=== PATIENT | female | born 1945 | race Caucasian/White ===

== ENCOUNTER 2017-09-15 14:38 | Inpatient (IN) | payer MEDICARE, OTHER ==
[2017-09-15] MEDS ORDERED: Labetalol HCl 100 MG/20 ML VIAL ONE (14:53)
[2017-09-15 15:06] LABS: #Eosinphils 0.1 thou/uL (0.0-0.7); #Lymphocytes 2.1 thou/uL (1.20-3.40); #Monocytes 0.6 thou/uL (0.11-0.59); #Neutrophils 3.8 thou/uL (1.40-6.50); %Basophils 0.7 % (0.0-1.0); %Eosinophils 1.9 % (0.0-10.0); %Lymphocytes 31.9 % (21.0-51.0); %Monocytes 8.6 % (0.0-10.0); %Neutrophils 56.9 % (42.0-75.0); Hemoglobin 13.5 g/dL (12.0-16.0); Mean Corpuscular HGB CONC 34.2 g/dL (32.0-36.0); Mean Corpuscular Hemoglobin 31.2 pg (27.0-31.0); Mean Corpuscular Volume 91.4 fl (81.0-99.0); Mean Platelet Volume 6.9 fL (7.4-10.4); Platelet Count 268 thou/uL (130-400); RBC Distribution Width 13.4 % (11.5-14.5); Red Blood Cell (RBC) Count 4.33 mill/uL (4.20-5.40); White Blood Cell (WBC) Count 6.7 thou/uL (4.8-10.8)
[2017-09-15 15:12] LABS: INR-International Normal Ratio 1.3; PTT 31.8 SEC (22.9-36.1); Prothrombin Time 16.3 SEC (12.0-14.7)
[2017-09-15] MEDS ORDERED: Esmolol 2,500 MG/250 ML 250 ML IVPB SCH (15:15)
--- NOTE | 2017-09-15 15:22 | RAD ---
CHEST 1 VIEW: Date: 09/15/17 HISTORY: Chest pain. COMPARISON: None. FINDINGS: There is a perihilar and right lower lobe air space opacity. Faint interstitial opacities are present in the left lung base. No pneumothorax. Mild degenerative changes of both glenohumeral joints. Moderate degenerative disease of the thoracic spine. IMPRESSION: Faint opacities in the lower lobes with somewhat an interstitial predominance may be reflective of ea rly edema versus atypical infection. Follow-up recommended. Clinical correlation advised. POS: ALBERT
[2017-09-15 15:25] LABS: ALT (SGPT) 16 U/L (8-55); AST (SGOT) 23 U/L (5-34); Albumin 3.9 g/dL (3.4-4.8); Alkaline Phosphatase 118 U/L (40-150); Anion Gap 13 mmol/L (10-20); BUN (Urea Nitrogen) 18 mg/dL (9.8-20.1); Bilirubin, Total 0.5 mg/dL (0.2-1.2); Calc. Creatinine Clearance 0 mL/min (70-130); Calcium 9.8 mg/dL (7.8-10.44); Carbon Dioxide 22 mmol/L (23-31); Chloride 108 mmol/L (98-107); Estimated GFR-MDRD 41; Globulin 3.7 g/dL (2.4-3.5); Glucose 105 mg/dL (80-115); Lipase 48 U/L (8-78); Potassium 4.1 mmol/L (3.5-5.1); Protein, Total 7.6 g/dL (6.0-8.3); Sodium 139 mmol/L (136-145)
[2017-09-15 15:29] LABS: CKMB 0.9 ng/mL (0-6.6); Troponin I Less than 0.010 ng/mL (< 0.028)
[2017-09-15 18:38] LABS: Troponin I Less than 0.010 ng/mL (< 0.028)
[2017-09-15] MEDS: Sodium Chloride 0.9% 1,000 ML IV SCH (19:48)
[2017-09-15 19:49] VITALS: BMI 28.6
[2017-09-15 21:31] LABS: Troponin I Less than 0.010 ng/mL (< 0.028)
[2017-09-15] MEDS: Amiodarone 200 MG TAB PO SCH (21:51)
[2017-09-15] MEDS: Pramipexole Di-HCl 0.25 MG TAB PO SCH (21:51)
[2017-09-16 05:10] LABS: #Basophils 0.1 thou/uL (0.0-0.2); #Eosinphils 0.1 thou/uL (0.0-0.7); #Lymphocytes 2.1 thou/uL (1.20-3.40); #Monocytes 0.4 thou/uL (0.11-0.59); %Eosinophils 2.6 % (0.0-10.0); %Lymphocytes 36.1 % (21.0-51.0); %Monocytes 7.4 % (0.0-10.0); Hemoglobin 11.5 g/dL (12.0-16.0); Mean Corpuscular HGB CONC 34.9 g/dL (32.0-36.0); Mean Corpuscular Hemoglobin 33.5 pg (27.0-31.0); Mean Corpuscular Volume 95.8 fl (81.0-99.0); Mean Platelet Volume 7.1 fL (7.4-10.4); Platelet Count 207 thou/uL (130-400); RBC Distribution Width 13.5 % (11.5-14.5); Red Blood Cell (RBC) Count 3.42 mill/uL (4.20-5.40); White Blood Cell (WBC) Count 5.7 thou/uL (4.8-10.8)
[2017-09-16 05:31] LABS: Anion Gap 8 mmol/L (10-20); BUN (Urea Nitrogen) 14 mg/dL (9.8-20.1); Calc. Creatinine Clearance 54 mL/min (70-130); Calcium 8.7 mg/dL (7.8-10.44); Carbon Dioxide 21 mmol/L (23-31); Chloride 114 mmol/L (98-107); Estimated GFR-MDRD 56; Glucose 87 mg/dL (80-115); Sodium 139 mmol/L (136-145)
[2017-09-16] MEDS ORDERED: Famotidine/PF 20 mg/2ml Vial SLOW IVP SCH (09:00)
[2017-09-16] MEDS ORDERED: Famotidine 40 MG/4 ML VIAL SLOW IVP SCH (09:00)
[2017-09-16] MEDS ORDERED: Enoxaparin Sodium 30 MG/0.3 ML SYRINGE SC SCH (09:00)
--- NOTE | 2017-09-16 09:56 | HP ---
DATE OF ADMISSION: 09/16/2017 PRIMARY CARE PHYSICIAN: Dr. Gamboa. EAP COUNSELOR: Dr. Woods. CHIEF COMPLAINT: Palpitations. HISTORY OF PRESENT ILLNESS: This is a 71-year-old female with a known history of prior atrial fibril lation, status post ablation who presents today with a chief complaint of palpitations. The patient reports an acute onset without precipitant. Denies any nausea, vomiting, chest pain, chest pressure, shortness of breath during this episode. Denies any recent illnesses or changes to her home medication. In the emergency department, she is found to be in atrial fibrillation with RVR, namely a heart rate in the 170s to 180s per report to me. It appears that in the emergency department, patient was initi ally started on labetalol, which did not help with the patient's heart rate whatsoever, but did decre ase her systolic blood pressure into the 70s and 80s systolic. At the time of my evaluation, the pat ient has been initiated on an esmolol drip with subsequent improvement of her heart rate down into th e 60s and maintaining blood pressures systolic in the 100s. At the time of my evaluation, the patient denies any continued sensation of palpitations. REVIEW OF SYSTEMS: As per HPI. Constitutional: Denies any recent illnesses. Denies any recent fe vers, chills, or significant weight changes over the last 2 months. HEENT: No any headaches, dizzin ess, lightheadedness, or vision changes. Cardiovascular: As per above. No chest pain, no chest pr essure, no left-sided arm numbness or tingling associated with this event or immediately before or af ter. Respiratory: No new congestion, cough, shortness of breath, wheezing. Gastrointestinal: Peterson es any nausea, vomiting, abdominal pain. Denies any recent issues with diarrhea or constipation. Ge nitourinary: Denies any recent dysuria, changes in urinary frequency, color or quantity. Musculoske letal: Denies any recent myalgias or arthralgias. Skin: No new recent rashes or new "lumps or bump s." The remainder of the review of systems otherwise negative. PAST MEDICAL HISTORY: Please see above. 1. Known history of atrial fibrillation with status post ablation, currently on Eliquis for anticoag ulation. 2. Irritable bowel syndrome. 3. Restless leg syndrome. 4. Aortic valve insufficiency. 5. Degenerative joint disease. 6. Hypertension. 7. Status post cardiac catheterization in association with her atrial fibrillation, no other surgeri es that the patient recalls. HOME MEDICATIONS: Please see the EMR for full details. Briefly, the patient does take at home, apix aban or Eliquis 5 mg p.o. b.i.d., simvastatin 20 mg p.o. q.p.m., ramipril 5 mg p.o. daily, metoprolol succinate 25 mg p.o. daily and pramipexole 0.5 mg p.o. b.i.d. as noted above. The patient denies an y recent hwcc-[id number]-kguuttm supplements or vitamins. Denies any changes to his medication regimen in t he last 30 days. FAMILY HISTORY: The patient endorses a family history of "heart disease," but denies knowing if any of her family members actually have any arrhythmia. Denies any endocrine disorders including thyroid issues that she is aware of. FAMILY HISTORY: Otherwise significant for lung cancer in her father and emphysema in her mother. SOCIAL HISTORY: Patient denies any alcohol, tobacco or illicit drug use. CODE STATUS: She endorses being FULL CODE. This was reviewed with the patient and a family member a t bedside. PHYSICAL EXAMINATION: VITAL SIGNS: At the time of my evaluation, the patient's blood pressure is systolic in the 100s, rosa stolic in the 40s to 50s, heart rate in the 60s, respiration rate 18, satting 97% on room air, and te mperature 98.0. GENERAL: The patient is awake, alert, appropriate, in no acute distress, lying in the hospital bed a nd appears to be a reasonable historian providing the history as above. HEENT: Moist mucous membranes. Equal ocular motions are intact. Pupils are equal and reactive. Cl ear posterior oropharynx. NECK: No cervical or submandibular lymphadenopathy. CARDIOVASCULAR: S1, S2. Pulses 2+ bilateral upper extremities. At the time of my evaluation, the p atient appears to be in normal sinus rhythm as per telemetry and her pulse does not demonstrate any i rregularities. RESPIRATORY: Reasonable air movement. No wheezes, rales or rhonchi. Grossly clear to auscultation bilaterally. ABDOMEN: Positive bowel sounds, soft, nontender to palpation. NEUROLOGIC: Moving all 4 extremities independently and able to self re-position in the bed without d ifficulty or assistance. LABORATORY DATA AND IMAGING: WBC 6.7, hemoglobin 13.5, hematocrit 39.5, platelets 268. PT 16.3, INR 1.3. Sodium 139, potassium 4.1, chloride 108, bicarbonate 22, BUN 18, creatinine 1.28, glucose 105, calcium 9.8, total bilirubin 0.5, AST 26, ALT 16, alkaline phosphatase 118. Troponin less than 0.01 . BNP natriuretic peptide 191.8, total protein 7.6, albumin 3.9, lipase 48. TSH 1.571. ASSESSMENT AND PLAN: This is a 71-year-old female with a known history of atrial fibrillation presleda herrera with a chief complaint of palpitations. 1. Palpitations with initial assessment by the emergency department consistent with atrial fibrillat ion with rapid ventricular response. At the time of my evaluation, the patient appears to be back in normal sinus rhythm on esmolol drip. The patient's home sack sorter is Dr. Woods. We will cons ult him for further evaluation of her recurrent atrial fibrillation despite medical management and ab lation. Given the patient is on esmolol, I will continue to hold her home beta elia, metoprolol s uccinate. Due to the patient's needing sufficient blood pressure leeway to allow for esmolol utiliza tion, I will also hold her home lisinopril. Continue the patient's home amiodarone. In case the pat ient needs subsequent ablation or any other procedure in the morning, I will hold the patient's Eliqu is at this point in time and place the patient on enoxaparin for DVT prophylaxis. I will also keep t he patient n.p.o. with maintenance normal saline IV fluid. 2. Restless leg syndrome, stable. 3. Irritable bowel syndrome, stable. 4. Activity as tolerated. 5. Diet, n.p.o. as above. 6. Deep venous thrombosis prophylaxis as above. 7. The patient with some mild acute kidney injury with slightly elevated creatinine. Hydration as a opal. We will closely monitor intake and output and recheck a basic metabolic panel in the morning. The patient is admitted to the [facility] due to her need for an esmolol drip. She is currently hemodynami augie stable. She will be FULL CODE as discussed above. Thank you for asking me to care for the patient. Questions or concerns, please contact me at [facility].
[2017-09-16] MEDS: Amiodarone 200 MG TAB PO SCH (10:07)
[2017-09-16] MEDS: Pramipexole Di-HCl 0.25 MG TAB PO SCH (10:15)
[2017-09-16 11:28] VITALS: BP 102/42; TEMP 98.2
[2017-09-16] MEDS: Sodium Chloride 0.9% 1,000 ML IV SCH (13:23)
--- NOTE | 2017-09-16 17:07 | CON ---
DATE OF CONSULTATION: 09/16/2017 HISTORY OF PRESENT ILLNESS: The patient is a 71-year-old woman with a history of atrial fibrillation presents with recurrent palpitations. The patient has a previous history of atrial fibrillation. She was seen initially in 2014. She underwent a cardiac catheterization, which revealed her to have normal left ventricular systolic function with normal coronary arteries. The patient underwent radiofrequency ablation for paroxysmal atrial fibrillation approximately 6 months ago. She was readmitted in February with atrial fibrillation and was started on amiodarone. The patient recently was taken off amiodarone and Eliquis. She was noted to be back in atrial fibrillation and was started on metoprolol. The patient presented with recurrent palpitations. The patient also reported having some chest discomfort. She underwent a recent PET scan which revealed normal left ventricular ejection fraction of 60% with no evidence of ischemia. The patient denies having any present chest discomfort. PAST MEDICAL HISTORY: 1. Atrial fibrillation. 2. Hypertension. 3. Dyslipidemia. 4. Irritable bowel syndrome. 5. Arthritis. PAST SURGICAL HISTORY: Toe surgery. SOCIAL HISTORY: Nonsmoker. MEDICATIONS ON ADMISSION: Apixaban 5 b.i.d., Zocor 20 at bedtime, ramipril 5 daily, and Toprol 25 XL daily. REVIEW OF SYSTEMS: Ten-point system otherwise unremarkable. PHYSICAL EXAMINATION: GENERAL: This is a well-developed woman in no acute distress. VITAL SIGNS: Blood pressure 102/42. NECK: Showed no jugular venous distention. LUNGS: Clear to auscultation. HEART: Regular rate and rhythm with a normal S1, S2. No murmur. ABDOMEN: Nondistended. EXTREMITIES: Showed no edema. SKIN: Warm and dry. NEUROLOGIC: Nonfocal. VASCULAR: Radial pulses are 2+. LABORATORY DATA: Sodium 139, potassium 4.0, chloride 114, bicarbonate 21, BUN 14, creatinine 0.98, glucose is 87, troponin less than 0.01. TSH is 1.5. Her EKG revealed normal sinus rhythm with a normal ECG. IMPRESSION: 1. Recurrent paroxysmal atrial fibrillation. 2. Hypertension. 3. Dyslipidemia. This patient presents with recurrent atrial fibrillation. We will obtain EP consultation. I would restart the patient on her amiodarone until she follows up with an c4 planner. From a cardiac standpoint, she can be discharged on amiodarone and apixaban. We will follow this patient with you through her hospitalization. BHARGAV
[2017-09-16] MEDS ORDERED: Apixaban 5 MG TAB PO SCH (21:00)
== END 2017-09-16 15:28 | disposition home or self-care (01) | DRG 310 ==
LOC: ERS 14:38 → IMCU/EMU 19:08
PROVIDERS: ADMIT Internal Medicine; ATTEND Internal Medicine
DX: I48.0 Paroxysmal atrial fibrillation (principal); E78.5 Hyperlipidemia, unspecified; M19.90 Unspecified osteoarthritis, unspecified site; G25.81 Restless legs syndrome; I10 Essential (primary) hypertension
CPT/HCPCS: 36415; 71045; 80048; 80053; 82553; 83690; 83880; 84443; 84484; 85025; 85610; 85730; 93005; 96365; 96366; 96375

== ENCOUNTER 2017-11-07 08:37 | Outpatient (CLI) | payer MEDICARE, OTHER ==
--- NOTE | 2017-11-07 12:13 | MMO ---
BILATERAL SCREENING MAMMOGRAMS: Date: 11-07-17 This study is interpreted with the assistance of computer aided detection. Comparison: 06-03-16, 09-27-13 FINDINGS: Scattered fibroglandular densities are seen in each breast. Stable benign appearing calcifications ar e again seen in each breast. No dominant mass or suspicious grouping of microcalcifications are seen. IMPRESSION: BIRADS category 2 - benign findings. Routine annual mammographic screening is recommended. POS: ALBERT
== END 2017-11-07 08:38 | disposition home or self-care (01) ==
LOC: SCSMAMMO 08:37
PROVIDERS: ATTEND Family Medicine
DX: Z12.31 Encounter for screening mammogram for malignant neoplasm of breast (principal)
CPT/HCPCS: 77067

== ENCOUNTER 2017-12-01 09:23 | Observation (INO) | payer MEDICARE, OTHER ==
[2017-12-01 10:05] LABS: #Basophils 0.1 thou/uL (0.0-0.2); #Eosinphils 0.1 thou/uL (0.0-0.7); #Lymphocytes 1.6 thou/uL (1.20-3.40); #Monocytes 0.4 thou/uL (0.11-0.59); #Neutrophils 5.1 thou/uL (1.40-6.50); %Basophils 0.9 % (0.0-1.0); %Eosinophils 1.8 % (0.0-10.0); %Lymphocytes 21.9 % (21.0-51.0); %Monocytes 6.1 % (0.0-10.0); %Neutrophils 69.3 % (42.0-75.0); Hemoglobin 12.9 g/dL (12.0-16.0); Mean Corpuscular Hemoglobin 30.1 pg (27.0-31.0); Mean Corpuscular Volume 91.3 fl (81.0-99.0); Mean Platelet Volume 7.1 fL (7.4-10.4); Platelet Count 304 thou/uL (130-400); RBC Distribution Width 14.1 % (11.5-14.5); Red Blood Cell (RBC) Count 4.29 mill/uL (4.20-5.40); White Blood Cell (WBC) Count 7.3 thou/uL (4.8-10.8)
[2017-12-01 10:07] LABS: INR-International Normal Ratio 1.3; Prothrombin Time 16.2 SEC (12.0-14.7)
[2017-12-01 10:21] LABS: ALT (SGPT) 14 U/L (8-55); AST (SGOT) 22 U/L (5-34); Albumin 3.6 g/dL (3.4-4.8); Alkaline Phosphatase 116 U/L (40-150); Anion Gap 13 mmol/L (10-20); BUN (Urea Nitrogen) 15 mg/dL (9.8-20.1); Bilirubin, Total 0.5 mg/dL (0.2-1.2); Calc. Creatinine Clearance 43 mL/min (70-130); Calcium 9.4 mg/dL (7.8-10.44); Carbon Dioxide 22 mmol/L (23-31); Chloride 106 mmol/L (98-107); Estimated GFR-MDRD 45; Globulin 4.7 g/dL (2.4-3.5); Glucose 93 mg/dL (80-115); Potassium 4.2 mmol/L (3.5-5.1); Protein, Total 8.3 g/dL (6.0-8.3); Sodium 137 mmol/L (136-145)
[2017-12-01] MEDS ORDERED: Heparin 10,000 UNITS/1 ML VIAL ONE (11:56)
[2017-12-01] MEDS ORDERED: Midazolam HCl 2 mg/2 ml Vial ONE (12:16)
[2017-12-01] MEDS ORDERED: Fentanyl 100 MCG/2 ML VIAL ONE (12:16)
[2017-12-01] MEDS ORDERED: Propofol 500 MG/50 ML VIAL ONE (12:22)
[2017-12-01] MEDS ORDERED: Phenylephrine HCL 10 MG/ML VIAL ONE (12:29)
[2017-12-01] MEDS ORDERED: Isoproterenol 0.2 MG/1 ML AMP ONE (13:02)
[2017-12-01] MEDS ORDERED: PHENYLEPHRINE-NS 100 MCG/ML 10 ML SYRINGE ONE ×2 (13:20→13:58)
[2017-12-01] MEDS ORDERED: Heparin 10,000 UNITS/ 10 ML VIAL ONE (13:20)
[2017-12-01] MEDS ORDERED: PROPOFOL 200 MG/20 ML VIAL ONE (13:20)
[2017-12-01] MEDS ORDERED: Ondansetron HCl/PF 4 MG/2 ML Vial ONE (13:20)
[2017-12-01] MEDS ORDERED: Protamine Sulfate 50 MG/5 ML VIAL ONE (13:47)
--- NOTE | 2017-12-01 13:58 | OP ---
DATE OF PROCEDURE: 12/01/2017 PROCEDURE: 1. Comprehensive EP testing with 3D mapping and ablation of atrial fibrillation. 2. Intracardiac echocardiography. 3. Transseptal catheterization. 4. LINQ injectable monitor placement. CLINICAL INDICATION: Atrial fibrillation, recurrent from previous ablation. STATISTICIAN THEORETICAL: Griffin Liu M.D. ASA CLASSIFICATION: 3. ANESTHESIA: General endotracheal anesthesia per Anesthesiology. ADDITIONAL CARDIAC MEDICATIONS: Isoproterenol 10 mcg per minute infusion. Total heparin given 12,00 0 units. Total protamine given 40 mg. ACUTE COMPLICATIONS: None apparent. TOTAL RADIOFREQUENCY TIME: 21 minutes 50 seconds. TOTAL FLUOROSCOPY TIME: Zero. ACUTE COMPLICATIONS: None. METHODS: After informed consent was obtained, the patient was taken to the EP lab in a fasting state . Both groins were prepped and draped using ultrasound guidance, the right and left femoral veins we re accessed and wires inserted into the central venous system. The wires used to place an 11 and 8-F rench sheath in the left groin, two 8 Chilean sheaths in right groin. All 8 [place]an sheaths was then r eplaced by long sheaths for catheter stability. A circular ablation catheter placed in right groin a dvanced into the right atrium. A 3D map was obtained of the right atrium and the coronary sinus. A 20-pole catheter placed in left groin and advanced up to the coronary sinus. Transseptal catheteriza tion was performed after heparinization. A 3D map was obtained of the left atrium and ablation was d elivered reisolating the right superior pulmonary vein, the posterior wall of the left atrium. The p atient had firing from the left atrial appendage and from the florian terminalis. The left atrial jenise endage was completely isolated with independent beating. Ablation was also delivered along the roof of the left atrium, the roof of the right atrium and the florian terminalis. After this, the patient terminated and was no longer inducible. After an observation period catheter withdrawn. Heparin rev ersed. Sheaths were pulled. Hemostasis was achieved with a collagen closure. RESULTS: 1. Baseline intervals, HV interval 38 milliseconds. 2. Atrial ____ when patient was in sinus rhythm; however, with isoproterenol had induction of atria l tachycardia and atypical flutter. This appeared to be firing and initiating from the left atrial a ppendage and was maintained from the right atrial appendage and the florian terminalis. Each of these were ablated. Ultimately, the patient had her left atrial appendage completely isolated. The right superior and posterior wall were also re-isolated from previous ablation. IMPRESSION: 1. Successful re-isolation right superior pulmonary veins, posterior wall of the left atrium. 2. Confirmed complete isolation of left atrial appendage. 3. Debulking of the roof and the florian terminalis of the right atrium. RECOMMENDATION: Oral anticoagulation.
--- NOTE | 2017-12-01 14:00 | OP ---
DATE OF PROCEDURE: 12/01/2017 PROCEDURE: Placement of an injectable monitor. CLINICAL INDICATION: History of atrial fibrillation for monitoring of recurrence. KITCHENHAND: Griffin Liu M.D. ASA CLASSIFICATION: 3. ANESTHESIA: Total IV anesthesia per Anesthesiology. ADDITIONAL CARDIAC MEDICATIONS: None. ESTIMATED BLOOD LOSS: None. ACUTE COMPLICATIONS: None. METHODS: An ILR was placed in the fifth intercostal space and left chest without difficulty. IMPRESSION: Successful ILR LINQ placement. RECOMMENDATION: Continue with monitoring for the atrial fibrillation.
[2017-12-01] MEDS ORDERED: ePHEDrine/0.9% NaCl/PF SYRINGE 50 mg/10 ml ONE (14:25)
--- NOTE | 2017-12-01 14:28 | EKG ---
Test Reason : PREOP Blood Pressure : / mmHG Vent. Rate : 059 BPM Atrial Rate : 059 BPM P-R Int : 168 ms QRS Dur : 102 ms QT Int : 454 ms P-R-T Axes : 039 047 027 degrees QTc Int : 449 ms Sinus bradycardia Otherwise normal ECG When compared with ECG of 15-SEP-2017 16:03, No significant change was found Confirmed by DONIS SHIELDS ([id number]) on 12/01/2017 2:27:36 PM Referred By: CASPER Confirmed By:DONIS SHIELDS
[2017-12-01 17:28] VITALS: BMI 29.2
[2017-12-01] MEDS ORDERED: Acetaminophen 325 MG TAB PO PRN (17:53)
[2017-12-01] MEDS ORDERED: Bisacodyl 10 MG SUPP PR PRN (17:53)
[2017-12-01] MEDS ORDERED: Ondansetron HCl/PF 4 MG/2 ML Vial IVP PRN (17:53)
[2017-12-01] MEDS ORDERED: Nitroglycerin 0.4 MG TAB (25 Tab Bottle) SL PRN (17:53)
[2017-12-01] MEDS ORDERED: Silver Sulfadiazine 1% Cream 50 GM JAR TOP PRN (17:53)
[2017-12-01] MEDS ORDERED: traMADol HCl 50 MG TAB PO PRN (17:53)
[2017-12-01] MEDS ORDERED: Temazepam 15 MG CAP PO PRN (17:53)
[2017-12-01] MEDS ORDERED: Bisacodyl 5 MG TAB PO PRN (17:53)
[2017-12-01] MEDS ORDERED: Mag-Al 1200 mg/1200 mg/30 ML UDCUP PO PRN (17:53)
[2017-12-01] MEDS ORDERED: diphenhydrAMINE 25 MG CAP PO PRN (17:53)
[2017-12-01] MEDS ORDERED: Furosemide 40 MG/4 ML VIAL SLOW IVP SCH (18:00)
[2017-12-01] MEDS ORDERED: Potassium Chloride 20 MEQ TAB PO SCH (18:00)
[2017-12-01] MEDS: Apixaban 5 MG TAB PO SCH (20:42)
[2017-12-01] MEDS: Pramipexole Di-HCl 0.25 MG TAB PO SCH (20:42)
--- NOTE | 2017-12-01 20:47 | ECHO ---
DATE OF SERVICE: 12/01/17 REASON FOR PROCEDURE: This patient is a 71-year-old woman with history of recurrent atrial arrhythmias. She underwent a re do pulmonary venous isolation posterior ablation procedure by Dr. Liu today. She developed modera te hypertension requiring pressors postop in the recovery phase from the Anesthesia in the recovery u nit. A 2D echo was performed to rule out any periprocedural complications or tamponade. Evaluate LV function and volume status. PROCEDURE RESULTS: The left atrium is moderately enlarged. Left atrial appendage is not visualized. Interatrial septum is with a small PFO likely due to the recent transseptal procedure Mild mitral regurgitation is seen. Left systolic function is preserved. LV ejection fraction about 50-55% noted. Mildly enlarged left v entricular size is seen. Right chambers nondilated Mild tricuspid regurgitation is seen only Aortic valve has three leaflets. Mild central regurgitation jet is seen. The pressure half time VID aortic regurgitation jet is 420 milliseconds. Pulmonic valve is not well visualized. The ascending aorta is nondilated and nondissected. The inferior vena cava is 11 cm per second, resp onse to respiration. The pericardial space without effusion. CONCLUSION: 1. No pericardial effusion post-ablation procedure. 2. Normal left ventricular systolic function. 3. Normal appearing inferior vena cava suggestive of adequate volume status. 4. Mild aortic and mitral regurgitation seen. No other valvular abnormalities of significance is no dea.
[2017-12-01] MEDS ORDERED: Valsartan 80 MG TAB PO SCH (21:00)
[2017-12-01] MEDS ORDERED: Atorvastatin Calcium 10 MG TAB PO SCH (21:00)
[2017-12-02] MEDS: Apixaban 5 MG TAB PO SCH (07:59)
[2017-12-02] MEDS: Pramipexole Di-HCl 0.25 MG TAB PO SCH (07:59)
--- NOTE | 2017-12-02 13:05 | EKG ---
Test Reason : POST ABLATION Blood Pressure : / mmHG Vent. Rate : 069 BPM Atrial Rate : 069 BPM P-R Int : 212 ms QRS Dur : 102 ms QT Int : 444 ms P-R-T Axes : 065 056 041 degrees QTc Int : 475 ms Sinus rhythm with 1st degree A-V block Otherwise normal ECG When compared with ECG of 01-DEC-2017 10:02, NE interval has increased Confirmed by DONIS SHIELDS ([id number]) on 12/02/2017 1:05:19 PM Referred By: CASPER Confirmed By:DONIS SHIELDS
[2017-12-02] MEDS ORDERED: Potassium Chloride 20 MEQ TAB PO SCH (14:45)
[2017-12-02] MEDS ORDERED: Furosemide 40 MG/4 ML VIAL SLOW IVP SCH (14:45)
[2017-12-02 18:32] VITALS: BP 90/51; TEMP 98.5
== END 2017-12-02 18:18 | disposition home or self-care (01) ==
LOC: CCL 09:23 → EEVIPCON 09:23 → 2SW 14:58
PROVIDERS: ADMIT Internal Medicine Cardiovascular Disease; ATTEND Internal Medicine Cardiovascular Disease
PROC: 0JH602Z Insertion of Monitoring Device into Chest Subcutaneous Tissue and Fascia, Open Approach (ICD-10-PCS; principal; 2017-12-01)
DX: I48.91 Unspecified atrial fibrillation (principal); Z79.01 Long term (current) use of anticoagulants; Z88.5 Allergy status to narcotic agent; Z79.899 Other long term (current) drug therapy
CPT/HCPCS: 33282; 76942; 80053; 85025; 85347; 85610; 85730; 93005 ×3; 93306; 93613; 93623; 93656; 93662; 96374; 96376; C1731; C1732 ×2; C1759; C1764; C1769; G0378; 93010; J1644; J1940; J2250; J2370; J2405; J2704; J2720; J3010

== ENCOUNTER 2018-01-12 08:11 | Outpatient (CLI) | payer MEDICARE, OTHER ==
--- NOTE | 2018-01-12 09:44 | CT ---
CT THORAX WITH IV CONTRAST: DATE: 01/12/18. HISTORY: Dyspnea on exertion, abnormal chest x-ray. COMPARISON: Chest x-ray on 01/05/18. FINDINGS: The heart is mildly enlarged. Minimal vascular calcifications are seen in the thoracic aorta. Thora cic aorta is normal in caliber without evidence of an aortic dissection. There is an enlarged pretracheal lymph node measuring 1.5 cm which is nonspecific. A few mildly prom inent prevascular space lymph nodes are also noted. Calcified granuloma is seen in the right upper lobe. There are scattered interstitial opacities throughout the lungs bilaterally with a few scattered mini mal ground-glass densities. Findings may be related to infectious or inflammatory process. There is a tiny less than 5 mm pulmonary nodule seen in the right middle lobe which may also be related to th e interstitial prominence as opposed to a discrete pulmonary nodule. No pleural effusion or pneumothorax is seen. The visualized upper abdomen demonstrates a normal CT appearance. Degenerative changes are seen in the thoracic spine. There is S-shaped curvature of the cervicothora cic spine which may be positional. IMPRESSION: 1. Diffuse but scattered interstitial densities and mild ground-glass opacities within the lungs regis aterally which may be related to infectious or inflammatory process. This does correlate with findin gs on chest x-ray on 01/05/18. 2. Cardiomegaly. 3. Continued followup of parenchymal lung abnormalities is recommended to ensure resolution. POS: ALBERT
== END 2018-01-12 08:12 | disposition home or self-care (01) ==
LOC: CT 08:11
PROVIDERS: ATTEND Family Medicine
DX: R06.09 Other forms of dyspnea (principal); R91.8 Other nonspecific abnormal finding of lung field; I51.7 Cardiomegaly
CPT/HCPCS: 71260; 82565

== ENCOUNTER 2018-03-01 07:28 | Emergency (ER) | payer MEDICARE, OTHER ==
[2018-03-01] MEDS ORDERED: Metoprolol Tartrate 5 MG/5 ML VIAL ONE ×2 (08:13→08:52)
[2018-03-01 08:22] LABS: #Eosinphils 0.2 thou/uL (0.0-0.7); #Lymphocytes 1.7 thou/uL (1.20-3.40); #Monocytes 0.7 thou/uL (0.11-0.59); #Neutrophils 5.5 thou/uL (1.40-6.50); %Basophils 0.3 % (0.0-1.0); %Eosinophils 1.9 % (0.0-10.0); %Lymphocytes 20.9 % (21.0-51.0); %Monocytes 9.1 % (0.0-10.0); %Neutrophils 67.7 % (42.0-75.0); Hemoglobin 12.9 g/dL (12.0-16.0); Mean Corpuscular Hemoglobin 31.3 pg (27.0-31.0); Mean Platelet Volume 7.4 fL (7.4-10.4); Platelet Count 330 thou/uL (130-400); RBC Distribution Width 14.5 % (11.5-14.5); Red Blood Cell (RBC) Count 4.12 mill/uL (4.20-5.40); White Blood Cell (WBC) Count 8.2 thou/uL (4.8-10.8)
[2018-03-01 08:42] LABS: ALT (SGPT) 19 U/L (8-55); AST (SGOT) 23 U/L (5-34); Albumin 4.1 g/dL (3.4-4.8); Alkaline Phosphatase 128 U/L (40-150); Anion Gap 13 mmol/L (10-20); BUN (Urea Nitrogen) 20 mg/dL (9.8-20.1); Bilirubin, Total 0.6 mg/dL (0.2-1.2); CK (CPK) 64 U/L (29-168); Calc. Creatinine Clearance 0 mL/min (70-130); Calcium 9.8 mg/dL (7.8-10.44); Carbon Dioxide 25 mmol/L (23-31); Chloride 104 mmol/L (98-107); Estimated GFR-MDRD 40; Globulin 4.1 g/dL (2.4-3.5); Glucose 105 mg/dL (83-110); Magnesium 2.3 mg/dL (1.6-2.6); Potassium 4.3 mmol/L (3.5-5.1); Protein, Total 8.2 g/dL (6.0-8.3); Sodium 138 mmol/L (136-145)
[2018-03-01 08:49] LABS: CKMB 0.8 ng/mL (0-6.6); Troponin I Less than 0.010 ng/mL (< 0.028)
--- NOTE | 2018-03-01 09:05 | RAD ---
PORTABLE AP CHEST RADIOGRAPH: Date: 03-01-18 History: Chest pain, weakness. Comparison: 09-15-17 FINDINGS: Cardiac silhouette and pulmonary vasculature are within normal limits for portable technique of the alessandra ta. Calcified granuloma again overlies the right upper lung zone laterally. There is minimal symmet federica apical pleural and parenchymal scarring. Lungs are otherwise clear. There has been no interval ch laura from prior exam. IMPRESSION: Stable chest without evidence of an acute cardiopulmonary process. POS: ALBERT
== END 2018-03-01 10:52 | disposition home or self-care (01) ==
LOC: ERS 07:28
DX: I48.91 Unspecified atrial fibrillation (principal); Z79.899 Other long term (current) drug therapy
CPT/HCPCS: 71045; 80053; 82550; 82553; 83735; 84443; 84484; 85025; 93005; 96361; 96374; 96375

== ENCOUNTER 2018-03-03 12:13 | Inpatient (IN) | payer MEDICARE, OTHER ==
[2018-03-03] MEDS ORDERED: Acetaminophen/Codeine 30-300mg Tablet PO PRN (13:22)
--- NOTE | 2018-03-03 14:09 | HP ---
ADMITTING PHYSICIAN: Dr. Saleem Kasper DATE OF ADMISSION: 03/03/2018 CHIEF COMPLAINT: Syncopal episodes, pericardial effusion. HISTORY OF PRESENT ILLNESS: Ms. Barney is a very pleasant 72-year-old woman known to our practice for history of atrial fibrillation and recently syncopal episodes. She has undergone recently a redo ablation for atrial fibrillation on 12/01/2017. She had early recurrence of atypical flutter, prompting ER visit in February and is now on amiodarone for suppression. She has some issues with sinus node dysfunction and has been having recurrent syncopal episodes. She was seen at the [facility] this morning to undergo elective pacemaker implantation and before starting the procedure she was noted to have an enlarged cardiac silhouette on fluoroscopy. There was concern for preexisting pericardial effusion, possibly after her recent ablation. During the pacemaker implant she had some transient hypotension which since resolved. Her device was successfully placed, but given the concern for pericardial effusion she was sent to [facility] as a direct admit to the step-down unit for a stat echocardiogram and further evaluation and management of possible pericardial effusion. Currently, she is feeling well. She has recovered from her recent anesthesia. She denies any heart racing, palpitations, chest pain, pressure, or stroke or stroke-like symptoms. She has had multiple syncopal episodes in the past week, though never went to the emergency room following these episodes. She denies any additional cardiac concerns or complaints right now. She has mild tenderness at her fresh incision site. REVIEW OF SYSTEMS: Twelve point review of systems was conducted and is unremarkable except that listed above in the HPI. PAST MEDICAL HISTORY: 1. Paroxysmal atrial fibrillation, status post ablation on 01/20/2017 with early recurrence of atypical flutter, prompting ER visit February and initiation of amiodarone for suppression. 2. Late recurrent atrial fibrillation with RVR hospitalization on 09/15/2017, a redo PVAI on 12/01/2017 with isolation of left atrial appendage requiring lifelong anticoagulation. 3. [employer] LINQ implantable loop recorder placed 12/01/2017. 4. Eliquis for anticoagulation and stroke prophylaxis, CHADS VASc score of 3. The patient is a female gender, advancing age, hypertension 5. Normal left ventricular ejection fraction 55-60% by echocardiogram in 2014. 6. Coronary artery disease, risk factors include hypertension and hyperlipidemia. 7. Recurrent syncopal episodes with conversion pauses up to 9 seconds noted prompting urgent pacemaker implantation. CURRENT MEDICATIONS: Simvastatin 20 mg p.o. at bedtime, Eliquis 5 mg p.o. b.i.d., Mirapex 0.5 mg p.o. b.i.d., metoprolol succinate 25 mg p.o. daily. ALLERGIES: MORPHINE: PHYSICAL EXAMINATION: VITAL SIGNS: Pending on admission. GENERAL: This is an alert and oriented woman in no apparent distress. Her speech is clear. Affect is appropriate. NECK: Supple. No jugular venous distention. Her thyroid is nonpalpable. There are no carotid bruits bilaterally. LUNGS: Chest is clear to auscultation bilaterally without wheezes, crackles or rhonchi. CARDIAC: Heart sounds are somewhat distant with a regular rate and rhythm. No significant murmur, rub or gallop appreciated. ABDOMEN: Benign with positive bowel sounds noted throughout. Hepatojugular reflex is negative. EXTREMITIES: Warm and dry to touch without clubbing, cyanosis or edema. NEUROLOGIC: Grossly intact and nonfocal. Gait was not assessed. ASSESSMENT AND PLAN: 1. Recurrent atrial arrhythmias with 2 prior ablations, most recently in November 2017 with early recurrence of atypical flutter, now paroxysmal. 2. Recurrent syncopal episodes and tachybrady syndrome, prompting a pacemaker implant today. 3. Suspected pericardial effusion post-ablation, enlarged cardiac silhouette on fluoroscopy today before initiating her pacemaker implant as well as her recent symptoms. RECOMMENDATIONS: We admitted her directly to the step-down ICU for stat echocardiogram. We have discussed possible treatment options with her and she may require pericardiocentesis. We will await the echocardiogram results and move forward accordingly. We will keep her n.p.o. in the meantime and have labs pending. I have consulted the Hospitalist for assistance in navigating her hospital stay. If echo is normal we will keep her overnight for observation to monitor her transient hypotension. If no procedures are needed, will resume Eliquis Tuesday AM. Starting multaq for AAD. MTDD
[2018-03-03 14:15] LABS: #Basophils 0.1 thou/uL (0.0-0.2); #Eosinphils 0.1 thou/uL (0.0-0.7); #Lymphocytes 1.7 thou/uL (1.20-3.40); #Monocytes 0.5 thou/uL (0.11-0.59); #Neutrophils 3.6 thou/uL (1.40-6.50); %Basophils 0.9 % (0.0-1.0); %Eosinophils 1.7 % (0.0-10.0); %Lymphocytes 28.1 % (21.0-51.0); %Monocytes 8.1 % (0.0-10.0); %Neutrophils 61.3 % (42.0-75.0); Mean Corpuscular HGB CONC 32.7 g/dL (32.0-36.0); Mean Corpuscular Hemoglobin 30.5 pg (27.0-31.0); Mean Corpuscular Volume 93.5 fL (78.0-98.0); Platelet Count 228 thou/uL (130-400); RBC Distribution Width 14.2 % (11.5-14.5); Red Blood Cell (RBC) Count 3.59 mill/uL (4.20-5.40); White Blood Cell (WBC) Count 5.9 thou/uL (4.8-10.8)
[2018-03-03 14:22] LABS: INR-International Normal Ratio 1.2; PTT 32.1 SEC (22.9-36.1); Prothrombin Time 15.2 SEC (12.0-14.7)
[2018-03-03 14:35] LABS: Anion Gap 10 mmol/L (10-20); BUN (Urea Nitrogen) 22 mg/dL (9.8-20.1); Calc. Creatinine Clearance 0 mL/min (70-130); Carbon Dioxide 23 mmol/L (23-31); Chloride 110 mmol/L (98-107); Estimated GFR-MDRD 50; Glucose 87 mg/dL (83-110); Potassium 4.1 mmol/L (3.5-5.1); Sodium 139 mmol/L (136-145)
[2018-03-03 14:36] VITALS: BMI 28.8
[2018-03-03] MEDS: Dronedarone HCl 400 MG TAB PO SCH (17:37)
[2018-03-03] MEDS: Cephalexin 250 MG CAP PO SCH (17:38)
--- NOTE | 2018-03-03 18:33 | HP ---
CHIEF COMPLAINT: Direct admission for possible pericardial effusion. HISTORY OF PRESENT ILLNESS: This patient is a 72-year-old female, who has a history of significant atrial fibrillation/flutter with ablation with early recurrences. She ultimately had left atrial appendage isolation and is on anticoagulation as a result of that. The patient presented to an outlying facility for pacemaker placement today and response to syncopal episodes and evidence of sick sinus syndrome. On her arrival there, there was some apparent evidence of enlarged cardiac silhouette concerning for possible pericardial effusion. The patient has had no symptoms referable to tamponade. She had the pacemaker implanted and was subsequently brought here for direct admission for evaluation of the enlarged cardiac silhouette. At this point, she has had an echocardiogram performed and the initial impression is that there was a small effusion, but nothing that would require any specific intervention. REVIEW OF SYSTEMS: Ten-system review was negative. Other than that, she has had some mild bruising related to the Eliquis as she is on and some arthritis pain. PAST MEDICAL HISTORY: 1. As noted above, significant for the atrial fibrillation/flutter with recurrences, status post ablation. 2. Sick sinus syndrome, status post pacemaker placement this morning. 3. History of IBS. 4. Restless leg syndrome. 5. History of aortic insufficiency. 6. Degenerative joint disease. 7. Hypertension. PAST SURGICAL HISTORY: Prior heart catheterization. The ablations as mentioned. FAMILY HISTORY: Father had lung cancer. Mother had emphysema. SOCIAL HISTORY: The patient is a nonsmoker, nondrinker, nondrug user. CODE STATUS: She is FULL CODE. ALLERGIES: MORPHINE. HOME MEDICATIONS: Toprol-XL 50 mg q. day, Eliquis 5 mg b.i.d., Zocor 20 mg p.o. at bedtime. PHYSICAL EXAMINATION: VITAL SIGNS: Temperature 98.6, pulse 61, respirations 20, O2 sat 100% on room air, blood pressure 113/53. GENERAL APPEARANCE: Age appropriate female, in no distress. She is very pleasant, awake, alert, oriented. HEENT: PERRL. No OP lesions. NECK: Supple and symmetric without lymphadenopathy. LUNGS: Clear to auscultation bilaterally with good chest wall expansion and air exchange. CARDIOVASCULAR: Regular rate and rhythm without murmurs. CHEST: The left upper anterior chest incision site looks good with mild ecchymoses. ABDOMEN: Soft, nontender, nondistended. EXTREMITIES: Warm and dry with no edema. LABORATORY DATA: White count 5.9, hemoglobin 11.0, platelets 228. PT 15.2, INR 1.2, PTT 32.1. Sodium 139, potassium 4.1, chloride 110, BUN 22, creatinine 1.08, glucose 87, calcium 9. IMPRESSION AND PLAN: 1. Status post pacemaker placement for sick sinus syndrome and syncope. She is only postop a few hours, but is doing quite well. She has no significant pain. Followed by Dr. Kasper. 2. Enlarged cardiac silhouette on chest x-ray. The only indication is that she had a small pericardial effusion, but nothing warranting any intervention. At this point, we will go ahead and let her eat. We will defer the remaining plan to Dr. Kasper. 3. History of restless legs syndrome. Continue with her Mirapex. 4. History of atrial fibrillation/flutter with isolation of the left atrial appendage. Continue with the Toprol-XL and Eliquis. 5. History of hyperlipidemia. Continue with her simvastatin. MTDD
[2018-03-03] MEDS: Pramipexole Di-HCl 0.25 MG TAB PO SCH (20:09)
[2018-03-03] MEDS: Simvastatin 20 MG TAB PO SCH (20:09)
[2018-03-03] MEDS ORDERED: Apixaban 5 MG TAB PO SCH (21:00)
[2018-03-03] MEDS: Acetaminophen 325 MG TAB PO PRN (21:48)
[2018-03-04] MEDS: Cephalexin 250 MG CAP PO SCH ×5 (00:05→23:46)
[2018-03-04] MEDS: Pramipexole Di-HCl 0.25 MG TAB PO SCH ×2 (08:48→21:09)
[2018-03-04] MEDS: Dronedarone HCl 400 MG TAB PO SCH (08:48)
--- NOTE | 2018-03-04 09:24 | PRG ---
DATE OF SERVICE: 03/04/2018 SUBJECTIVE: The patient feels fine. She has no complaints this morning. She says she feels better in general. OBJECTIVE: VITAL SIGNS: Temperature 97.0, pulse 108, respirations 19, O2 sat 99% on room air, BP 96/67. GENERAL APPEARANCE: Age appropriate female in no distress. She is awake, alert, oriented, pleasant, cooperative. HEART: Irregular with a borderline tachycardia. No murmurs. Left upper chest pacemaker site has so me ecchymoses, but otherwise looks clean and dry. LUNGS: Clear bilaterally. ABDOMEN: Soft, nontender, nondistended. EXTREMITIES: Warm and dry. IMPRESSION AND PLAN: 1. Atrial fibrillation. The patient has a history of atrial fibrillation flutter and has had severa l ablations and left atrial appendage isolation procedures. She had a subsequent sick sinus syndrome , pacemaker placed yesterday. She has subsequently gone back into some atrial fibrillation with bord alfredo rate control. She is on Multaq, but her Eliquis is being held because of her pacemaker placem ent and there was some concern regarding pericardial effusion. We will await cardiology's input to shandra mijares how to manage her recurrence of the atrial fibrillation. 2. Pericardial effusion. This was noted at an outside facility where the patient was receiving her pacemaker placement. Echocardiogram did not reveal a significant effusion and therefore no intervent ion has been entertained. 3. Sick sinus syndrome, status post pacemaker placement. The patient is on Multaq and is to resume her Eliquis tomorrow. 4. Cardiomyopathy. The patient has reduced ejection fraction of 35%-40% on her echocardiogram. 5. History of restless leg syndrome. Continue Mirapex. 6. History of hyperlipidemia. Continue simvastatin.
[2018-03-04] MEDS: Acetaminophen 325 MG TAB PO PRN ×2 (11:06→23:47)
[2018-03-04] MEDS ORDERED: Amiodarone In Dextrose 200 ML IVPB SCH (12:30)
[2018-03-04] MEDS: Amiodarone HCl 450 MG, Admixture Fee 1 EACH in Dextrose 5% in Water 250 ML IVPB SCH (12:38)
[2018-03-04] MEDS ORDERED: Amiodarone HCl 150 MG in Dextrose 5% in Water 100 ML IVPB SCH (12:45)
--- NOTE | 2018-03-04 13:00 | CON ---
DATE OF CONSULTATION: 03/04/2018 SERVICE: Pulmonary Medicine. REASON FOR CONSULTATION: IMCU patient. HISTORY OF PRESENT ILLNESS: The patient is a 72-year-old white female who was in her usual state of health when she started having syncopal events over the past couple of weeks. She saw Dr. Kasper in the outpatient setting. The pacemaker was ultimately placed. Following the procedure, there was evidence of a small effusion. He put her in the hospital for close monitoring. Overnight, she actually went into atrial fibrillation. She denies any chest pain or shortness of breath currently. She feels that she had a couple of these little pass out events throughout the night, but cannot be perfectly descriptive out and she suddenly woke up and did not realize that she was sleeping. I talked to the son and the patient today. She has multiple features consistent with horrendous sleep apnea. There is a possibility that this could be playing a role here. She currently denies any chest pain, nausea , vomiting, fevers, chills, cough, sputum production, fevers, night sweats, dysuria, diarrhea, rashes, arthralgia. PAST MEDICAL HISTORY: 1. Atrial fibrillation. 2. Sick sinus rhythm, status post pacemaker placement, postop day 1. 3. Irritable bowel syndrome. 4. Restless legs syndrome. 5. Aortic insufficiency. 6. Osteoarthritis. 7. Hypertension. PAST SURGICAL HISTORY: 1. Cardiac catheterization. 2. Pacemaker placement. FAMILY HISTORY: Noncontributory. SOCIAL HISTORY: Negative for alcohol, tobacco or illicit drug use. She has no exposure to chemicals, dust, asbestos or tuberculosis. ALLERGIES: MORPHINE. MEDICATIONS: List of inpatient medications were reviewed. No specific updates were made at this time. REVIEW OF SYSTEMS: General, head, ears, eyes, nose, throat, cardiovascular, respiratory, GI, , musculoskeletal, neurologic and skin is negative except as mentioned in the HPI. PHYSICAL EXAMINATION: VITAL SIGNS: Afebrile, pulse of 118, blood pressure 100/70, respirations 16, saturation 99% on room air. GENERAL: The patient is awake and alert, in no apparent distress. LUNGS: Excellent air entry. There is no prolonged expiratory phase or wheezing present. HEART: Tachycardic. Irregular. ABDOMEN: Soft, nontender, nondistended. Bowel sounds are positive. MUSCULOSKELETAL: No cyanosis or clubbing. There is no pitting in the bilateral lower extremities. NEUROLOGIC: Grossly nonfocal. LABORATORY DATA: WBC 5.9, hemoglobin 11.0, platelets 228,000. INR 1.2. Basic metabolic profile is otherwise unremarkable. IMAGING: Echocardiogram demonstrates 35%-40% ejection fraction with a dilated left atrium. Left ventricular size is mildly increased. Mild valvular abnormalities are present. There is a small circumferential pericardial effusion noted. Tamponade physiology is not mentioned. ASSESSMENT: 1. Atrial fibrillation, paroxysmal. 2. Sick sinus syndrome, status post pacemaker placement. 3. Pericardial effusion, not previously identified. 4. Obstructive sleep apnea, suspected. 5. Restless legs syndrome. DISCUSSION AND PLAN: We will leave the patient in the IMCU for close monitoring. Rate control medications are being initiated. Pulmonary Critical Care will continue to follow along while the patient remains in this location. Once she leaves the hospital, we will arrange for her to follow up with me in clinic so that we can set up a polysomnogram as she screens quite positive for sleep apnea. 70 minutes have been devoted to this patient in various activities. I personally reviewed all imaging studies and laboratory data noted within this document. For fifty percent of this time, I was interacting with the patient at the bedside or coordinating care with the care team. For the remainder of the time I was immediately available to the patient in the hospital unit. BHARGAV
[2018-03-04] MEDS ORDERED: Amiodarone HCl 150 MG, Admixture Fee 1 EACH in Dextrose 5% in Water 100 ML IVPB SCH (20:30)
[2018-03-04] MEDS: Simvastatin 20 MG TAB PO SCH (21:09)
[2018-03-05] MEDS: Amiodarone HCl 450 MG, Admixture Fee 1 EACH in Dextrose 5% in Water 250 ML IVPB SCH ×2 (01:22→16:14)
[2018-03-05] MEDS: Cephalexin 250 MG CAP PO SCH ×3 (06:54→18:22)
[2018-03-05] MEDS: Pramipexole Di-HCl 0.25 MG TAB PO SCH ×2 (08:36→20:09)
[2018-03-05 09:00] LABS: #Eosinphils 0.1 thou/uL (0.0-0.7); #Lymphocytes 1.2 thou/uL (1.20-3.40); #Monocytes 0.5 thou/uL (0.11-0.59); #Neutrophils 5.1 thou/uL (1.40-6.50); %Basophils 0.2 % (0.0-1.0); %Eosinophils 1.6 % (0.0-10.0); %Lymphocytes 16.9 % (21.0-51.0); %Monocytes 7.9 % (0.0-10.0); %Neutrophils 73.5 % (42.0-75.0); Hemoglobin 10.8 g/dL (12.0-16.0); Mean Corpuscular HGB CONC 33.2 g/dL (32.0-36.0); Mean Corpuscular Hemoglobin 30.9 pg (27.0-31.0); Mean Corpuscular Volume 92.9 fL (78.0-98.0); Mean Platelet Volume 7.5 fL (7.4-10.4); Platelet Count 234 thou/uL (130-400); RBC Distribution Width 14.1 % (11.5-14.5); White Blood Cell (WBC) Count 6.9 thou/uL (4.8-10.8)
[2018-03-05 09:19] LABS: Anion Gap 10 mmol/L (10-20); BUN (Urea Nitrogen) 8 mg/dL (9.8-20.1); Calc. Creatinine Clearance 48 mL/min (70-130); Carbon Dioxide 24 mmol/L (23-31); Chloride 108 mmol/L (98-107); Estimated GFR-MDRD 49; Glucose 148 mg/dL (83-110); Potassium 3.9 mmol/L (3.5-5.1); Sodium 138 mmol/L (136-145)
[2018-03-05] MEDS ORDERED: Apixaban 5 MG TAB PO SCH (09:30)
--- NOTE | 2018-03-05 13:31 | PRG ---
DATE OF SERVICE: 03/05/2018 SERVICE: Pulmonary Medicine. INTERVAL HISTORY: The patient is doing fine from a respiratory standpoint. She did not have any syn copal events. She denies any current fevers, chills, chest pain, shortness of breath, nausea, or vom iting. Otherwise, there has been no interval change to her condition. She is going for cardioversio n in the morning. PHYSICAL EXAMINATION: VITAL SIGNS: Afebrile, pulse 100, blood pressure 106/76, respirations 18, saturation 99% on room air . GENERAL: The patient is awake, alert, in no apparent distress. LUNGS: Decent air entry. There is minimal dependent crackles present. No prolonged expiratory phas e or wheezing is appreciated. HEART: Normal rate. Irregular. ABDOMEN: Soft, nontender, nondistended. Bowel sounds are positive. MUSCULOSKELETAL: No cyanosis or clubbing. There is no pitting in the bilateral lower extremities. NEUROLOGIC: Grossly nonfocal. LABORATORY DATA: WBC in CBC is stable or unremarkable. Basic metabolic profile is also unremarkable with a stable creatinine. Glucose 148. ASSESSMENT: 1. Atrial fibrillation, paroxysmal. 2. Sick sinus syndrome, status post pacemaker placement. 3. Pericardial effusion. 4. Obstructive sleep apnea, suspected. 5. Restless legs syndrome. DISCUSSION AND PLAN: The patient remains stable for transition out of the ICU to the telemetry unit. Pulmonary Critical Care will continue to follow along in this location, but once she arrives on the floor, I will sign off. We will certainly have her return to clinic to see me in the outpatient set ting to investigate her suspected sleep apnea.
--- NOTE | 2018-03-05 14:45 | PDOC.PN ---
- Subjective Encounter Start Date: 03/05/18 Encounter Start Time: 10:50 Doing well. No complaints. - Objective Resuscitation Status: Resuscitation Status FULL:Full Resuscitation Vital Signs & Weight: Vital Signs (12 hours) Temp Pulse Resp BP Pulse Ox 03/05/18 10:35 98.0 F 100 18 106/78 99 03/05/18 07:32 98 03/05/18 07:10 97.7 F 112 H 14 100/59 L 97 03/05/18 04:10 97.8 F 115 H 20 97/63 98 Weight Weight 143 lb I&O: 03/04/18 03/05/18 03/06/18 06:59 06:59 06:59 Intake Total 1120 1708 Output Total 575 Balance 1120 1133 Result Diagrams: 03/05/18 08:48 03/05/18 08:48 Phys Exam - Physical Examination Constitutional: NAD Respiratory: no wheezing, no rales, no rhonchi, clear to auscultation bilateral Cardiovascular: no significant murmur Irreg. Gastrointestinal: soft, non-tender, no distention, positive bowel sounds Musculoskeletal: no edema Psychiatric: normal affect, A&O x 3 Deviation from normal: Left upper chest PPM sit with some ecchymosis, but looks good. Dx/Plan (1) Atrial fibrillation with rapid ventricular response Code(s): I48.91 - UNSPECIFIED ATRIAL FIBRILLATION Status: Acute Comment: On amio gtt and multaq. EP to follow up tomorrow. Tranfer to tele floor. Resuming the Eliquis today. (2) Pericardial effusion Code(s): I31.3 - PERICARDIAL EFFUSION (NONINFLAMMATORY) Status: Acute Comment: Small. No intervention required. (3) Sick sinus syndrome Code(s): I49.5 - SICK SINUS SYNDROME Status: Acute Comment: S/P PPM placement. Site looks good. (4) RLS (restless legs syndrome) Status: Acute Comment: Continue home meds. - Plan * above.
[2018-03-05] MEDS: Apixaban 5 MG TAB PO SCH (20:09)
[2018-03-05] MEDS: Simvastatin 20 MG TAB PO SCH (20:09)
[2018-03-05] MEDS: Acetaminophen 325 MG TAB PO PRN (22:04)
[2018-03-06] MEDS: Cephalexin 250 MG CAP PO SCH ×5 (00:10→23:31)
[2018-03-06] MEDS: Apixaban 5 MG TAB PO SCH ×2 (08:11→20:42)
[2018-03-06] MEDS: Pramipexole Di-HCl 0.25 MG TAB PO SCH ×2 (08:11→20:41)
--- NOTE | 2018-03-06 08:38 | PRG ---
DATE OF SERVICE: 03/06/2018 SERVICE: Pulmonary Medicine INTERVAL HISTORY: The patient is doing fine from a respiratory standpoint. She is breathing comfort ably. There has been no interval change to her condition. Otherwise, she denies having any chest di scomfort, nausea, vomiting or diarrhea. She had no complaints this morning. There were no significa nt overnight events. PHYSICAL EXAMINATION: VITAL SIGNS: Afebrile. Pulse 115, blood pressure 115/73, respirations 18, saturation 96% on room ai r. GENERAL: The patient is awake, alert, in no apparent distress. LUNGS: Decent air entry. There is minimal dependent crackles present. There is no prolonged expira tory phase or wheezing. HEART: Normal rate, regular. ABDOMEN: Soft, nontender, nondistended. Bowel sounds are positive. MUSCULOSKELETAL: No cyanosis or clubbing. There is no pitting in the bilateral lower extremities. NEUROLOGIC: Grossly nonfocal. ASSESSMENT: 1. Atrial fibrillation, paroxysmal. 2. Sick sinus syndrome, status post pacemaker placement. 3. Pericardial effusion. 4. Obstructive sleep apnea, suspected. 5. Restless leg syndrome. DISCUSSION AND PLAN: The patient remains stable for transition to the telemetry unit. Cardioversion is being considered for today. Pulmonary Critical Care will continue to follow along so long as the patient remains in the hospital. When she leaves, we will set her up for a polysomnogram in the out patient setting. From my perspective, she is stable for transition to the telemetry unit.
[2018-03-06] MEDS ORDERED: Propofol 1,000 MG/100 ML VIAL IV ONE (08:59)
[2018-03-06] MEDS ORDERED: PROPOFOL 200 MG/20 ML VIAL ONE (11:27)
--- NOTE | 2018-03-06 13:01 | PDOC.PN ---
- Subjective Encounter Start Date: 03/06/18 Encounter Start Time: 13:00 Feels ok. No specific complaints. - Objective Resuscitation Status: Resuscitation Status FULL:Full Resuscitation Vital Signs & Weight: Vital Signs (12 hours) Temp Pulse Resp BP Pulse Ox 03/06/18 10:57 96.9 F L 125 H 16 125/81 100 03/06/18 07:38 97.0 F L 127 H 18 115/73 96 03/06/18 04:40 97.4 F L 115 H 18 98/69 96 03/06/18 02:00 96 Weight Weight 143 lb I&O: 03/05/18 03/06/18 03/07/18 06:59 06:59 06:59 Intake Total 1708 1294 Output Total 575 1475 Balance 1133 -181 Result Diagrams: 03/05/18 08:48 03/05/18 08:48 Phys Exam - Physical Examination Constitutional: NAD Respiratory: no wheezing, no rales, no rhonchi, clear to auscultation bilateral Cardiovascular: RRR, no significant murmur Gastrointestinal: soft, non-tender, no distention, positive bowel sounds Musculoskeletal: no edema Psychiatric: normal affect Deviation from normal: Left chest PM site looks ok. Dx/Plan (1) Atrial fibrillation with rapid ventricular response Code(s): I48.91 - UNSPECIFIED ATRIAL FIBRILLATION Status: Acute Comment: On Eliquis. Amio stopped. Had cardioversion anticipated for today, but found atrial clot on RYANN (per nurse). Awaiting the EP plan. (2) Pericardial effusion Code(s): I31.3 - PERICARDIAL EFFUSION (NONINFLAMMATORY) Status: Acute Comment: Small. No intervention required. (3) Sick sinus syndrome Code(s): I49.5 - SICK SINUS SYNDROME Status: Acute Comment: S/P PPM placement. Site looks good. (4) RLS (restless legs syndrome) Status: Acute Comment: Continue home meds. - Plan * Resume a diet. Await EP study.
[2018-03-06] MEDS: Acetaminophen 325 MG TAB PO PRN ×2 (15:45→23:32)
[2018-03-06] MEDS: Simvastatin 20 MG TAB PO SCH (20:42)
[2018-03-06] MEDS: Amiodarone 200 MG TAB PO SCH (20:42)
[2018-03-07] MEDS: Cephalexin 250 MG CAP PO SCH ×4 (05:41→23:34)
[2018-03-07] MEDS: Amiodarone 200 MG TAB PO SCH ×3 (09:41→21:01)
[2018-03-07] MEDS: Pramipexole Di-HCl 0.25 MG TAB PO SCH ×2 (09:41→21:01)
[2018-03-07] MEDS: Apixaban 5 MG TAB PO SCH ×2 (09:41→21:01)
--- NOTE | 2018-03-07 14:07 | PRG ---
DATE OF SERVICE: 03/07/2018 SERVICE: Pulmonary Medicine. INTERVAL HISTORY: The patient is doing fine from a cardiovascular and respiratory standpoint. She denies any chest pain or shortness of breath. They found a clot on the RYANN yesterday preventing them from doing any additional procedures. She denies any current fevers, chills, nausea, or vomiting. She does not have any shortness of breath with walking around. PHYSICAL EXAMINATION: VITAL SIGNS: Afebrile, pulse 110, blood pressure 103/59, respirations 18, saturation 98% on 2 liters nasal cannula. GENERAL: The patient is awake, alert, in no apparent distress. LUNGS: Decent air entry. There is no prolonged expiratory phase or wheezing appreciated. No crackles are present. HEART: Normal rate, regular. ABDOMEN: Soft, nontender, nondistended. Bowel sounds are positive. MUSCULOSKELETAL: No cyanosis or clubbing. No pitting in the bilateral lower extremities. NEUROLOGIC: Grossly nonfocal. ASSESSMENT: 1. Atrial fibrillation, paroxysmal. 2. Sick sinus syndrome, status post pacemaker placement. 3. Pericardial effusion. 4. Atrial clot. 5. Obstructive sleep apnea, suspected. 6. Restless legs syndrome. DISCUSSION AND PLAN: The patient once again remains stable for transition out of the IMCU to the telemetry unit. Pulmonary will continue to follow in this location. Once the patient is transitioned to the floor, she will have no further requirements for inpatient Pulmonary opinion, and I will sign off. Please call with additional questions moving forward. Of note, TPA could be considered, but she recently had pacemaker placement and so we would have to expect a fairly significant hematoma to develop at the pacemaker site if that was done. BHARGAV
--- NOTE | 2018-03-07 14:37 | PDOC.CTH ---
Cardiology Progress Note - Subjective EP Progress Note: Patient seen and evaluated. Feeling well overall. - Objective Vital Signs Temp Pulse Resp BP Pulse Ox 03/07/18 12:00 97.3 F L 110 H 18 103/59 L 98 03/07/18 07:39 97.3 F L 110 H 16 103/59 L 98 03/07/18 04:00 96.9 F L 72 16 100/53 L 97 Weight 143 lb 03/06/18 03/07/18 03/08/18 06:59 06:59 06:59 Intake Total 1294 360 Output Total 1475 475 Balance -181 -115 - Physical Examination General/Neuro: alert & oriented x3, NAD Neck: carotid US brisk, no JVD present Lungs: unlabored respirations Heart: PMI normal Abdomen: no HSM, NT/ND, soft - Telemetry Telemetry Rhythm: SR over HS, now back in AF - Labs Result Diagrams: 03/05/18 08:48 03/05/18 08:48 - Assessment/Plan 1. Atrial fibrillation, paroxysmal: s/p PVAI 01/20/17 with redo 11/2017, now with recurrence of atypical flutter. On amiodarone 200mg TID, for suppression. Maintained SR over HS but recently went back into AF 2.Atypical flutter, as above 3. CHADS VASC: 3 (female gender, advancing age, HTN) on Eliquis 4. 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 5. Dual chamber pacemaker placed 03/03/18 for syncope and collapse with 9 second pauses. PPM stable post implant, normal operation Continue loading on Amiodarone for AF suppression. Continue Eliquis for CVA prophylaxis and intra-atrial clot. Continue clindamycin post implant.
[2018-03-07] MEDS: Metoprolol Tartrate 25 MG TAB PO SCH ×2 (18:07→23:35)
[2018-03-07] MEDS: Acetaminophen 325 MG TAB PO PRN (21:00)
[2018-03-07] MEDS: Simvastatin 20 MG TAB PO SCH (21:01)
[2018-03-08 04:10] LABS: Hemoglobin 11.2 g/dL (12.0-16.0); Platelet Count 291 thou/uL (130-400)
[2018-03-08] MEDS: Cephalexin 250 MG CAP PO SCH ×4 (06:41→23:24)
[2018-03-08] MEDS: Metoprolol Tartrate 25 MG TAB PO SCH ×4 (07:11→23:29)
--- NOTE | 2018-03-08 07:27 | PRG ---
DATE OF SERVICE: 03/06/2018 This is an electrophysiology followup note for Courtney Barney. SUBJECTIVE: Savita seems to be doing well. She has occasional palpitations, but now she is back in sinus rhythm. She underwent a RYANN today which demonstrated a left atrial appendage clot. She was o n IV amiodarone over the weekend, but now maintain sinus rhythm. OBJECTIVE DATA: VITAL SIGNS: Blood pressure is 103/60; heart rate 135, but currently back to 89; in sinus rhythm, re spirations 18, temperature 96.9 degrees Fahrenheit. GENERAL: Alert and oriented woman in no apparent distress. NECK: Supple. Jugular veins not distended. CHEST: Coarse without crackles. CARDIOVASCULAR: Heart sounds are regular to rate and rhythm. No murmur or gallop. ABDOMEN: Benign. Bowel sounds positive. EXTREMITIES: No edema, clubbing or cyanosis. DATABASE: EKGs reviewed revealing atrial fibrillation with rapid rates, intermittent sinus rhythm is noted. LABORATORY DATA: White count 6.9, hemoglobin 10, platelet count is 234,000 on 03/05/2018. ASSESSMENT AND PLAN: Ms. Barney is a pleasant 72-year-old woman with prior history of atrial fibril lation which is paroxysmal, also had conversion pauses, now has a dual chamber pacemaker in place, pl aced last Tuesday. Also concerns of likely chronic pericardial effusion. She was monitored over the weekend. She exhibited intermittent episodes of atrial fibrillation requiring IV amiodarone for cont rol. Currently, is back in sinus rhythm. Although, I suspect there is a chance for recurrence of atrial f ibrillation. At this point, even though she seems to have a clot, it is better to keep her in sinus rhythm; theref ore, I will continue amiodarone p.o. On the other hand, if atrial fibrillation persists, continued the rate controlling medications might be also necessary. Currently, she is only on amiodarone. We will place her back on the beta elia s to avoid rapid rates with the atrial fibrillation. We will follow with you.
--- NOTE | 2018-03-08 08:28 | PRG ---
DATE OF SERVICE: 03/07/2018 ELECTROPHYSIOLOGY FOLLOWUP NOTE REFERRING PHYSICIAN: Dr. Woods. SUBJECTIVE: Mrs. Barney seems to be doing fair, some palpitations and abdominal distention sensatio n is noted. OBJECTIVE DATA: VITAL SIGNS: Blood pressure 105/66, heart rate 115, respirations 16, temperature 98 degrees Fahrenhe it. GENERAL: Alert and oriented woman, in no apparent distress. NECK: Supple. Jugular veins not distended. CHEST: Coarse without crackles. Left precordial pacing insertion site is with minimal reaction. ABDOMEN: Benign. Bowel sounds are positive. EXTREMITIES: Lower extremities without edema, clubbing or cyanosis. DATABASE: The EKGs reviewed revealing atypical atrial flutter with rapid rates, likely 2:1 atrial fl utter is present. ASSESSMENT AND PLAN: Mrs. Barney is a pleasant 72-year-old woman with a history of atrial arrhythmi as. She underwent an ablation with Dr. Liu in November, which complete isolation of left atrial appen dage. She developed marked pauses up to 9 seconds with recurrent atrial fibrillation/flutter sensati ons. She required a dual chamber pacemaker implantation for this, but subsequent to that, we had adm itted her hence the pericardial effusion, which though was deemed to be chronic and not causing tampo nade. stable, but still has recurrent rapid atrial fibrillation/flutter episodes. She was trisha ded with amiodarone, but still remains intermittently in atrial fibrillation/flutter. More concernin g is that she also has a left atrial appendage clot according to the RYANN performed Dr. Woods. Hen ce the history of left atrial appendage isolation, this is not a surprising finding, which she will n eed uninterrupted anticoagulation, which was not the case, hence the short interruption for the pacem [place] implant. At this point, we will continue the amiodarone therapy as well as adding increased dose of metoprolol . She might require digoxin as well for rate control. We might consider overdrive pacing to restore sinus rhythm. Also discussed consideration for a Watchman procedure and possible re-ablation was al so a good consideration.
[2018-03-08] MEDS: Pramipexole Di-HCl 0.25 MG TAB PO SCH ×2 (08:40→20:47)
[2018-03-08] MEDS: Amiodarone 200 MG TAB PO SCH ×3 (08:40→20:47)
[2018-03-08] MEDS: Apixaban 5 MG TAB PO SCH ×2 (08:40→20:47)
[2018-03-08] MEDS: Digoxin 0.5 MG/2 ML AMP SLOW IVP SCH ×2 (13:29→14:41)
--- NOTE | 2018-03-08 13:30 | PRG ---
DATE OF SERVICE: 03/08/2018 SERVICE: Pulmonary Medicine. INTERVAL HISTORY: The patient is doing fine from a respiratory standpoint. Denies any current fever s or chills. There has been no interval change to her condition. She is working here about the opti ons moving forward from Dr. Kasper. Otherwise, there were no events reported by nursing. PHYSICAL EXAMINATION: VITAL SIGNS: Afebrile, pulse 111, respirations 18, blood pressure 129/105, saturation 99% on room ai r. GENERAL: The patient is awake and alert, in no apparent distress. LUNGS: There is no prolonged expiratory phase, wheezing, rhonchi or crackles. There is excellent ai r entry. HEART: Tachycardic. Irregular. ABDOMEN: Soft, nontender, nondistended. Bowel sounds are positive. MUSCULOSKELETAL: No cyanosis or clubbing. There is no pitting in the bilateral lower extremities. NEUROLOGIC: Grossly nonfocal. LABORATORY DATA: Hemoglobin 11.2, platelets 291,000. Creatinine 1.0 and stable. ASSESSMENT: 1. Atrial fibrillation, paroxysmal. 2. Sick sinus syndrome, status post pacemaker placement. 3. Pericardial effusion with no tamponade physiology. 4. Atrial clot. 5. Obstructive sleep apnea, suspected. 6. Restless legs syndrome. DISCUSSION AND PLAN: The patient remains stable for transition out of the telemetry unit. I will co joanne to follow if she remains in this location, but from my perspective, she remains stable for tra nsition to the floor. In the outpatient setting, I will have her follow up with me in clinic to purs ue polysomnogram.
--- NOTE | 2018-03-08 17:21 | PDOC.CTH ---
Cardiology Progress Note - Subjective EP progress note: Patient seen and evaluated. Feeling well today.Has some heart racing and palpitation sensations. No chest pain/pressure, passing out, or stroke like symptoms. Has not been OOB - Objective Vital Signs Temp Pulse Resp BP Pulse Ox 03/08/18 15:12 97.0 F L 16 131/54 L 97 03/08/18 14:41 111 H 03/08/18 13:29 111 H 03/08/18 10:44 97.9 F 111 H 18 129/105 H 99 03/08/18 08:00 98 03/08/18 07:20 97.4 F L 109 H 16 106/68 98 Weight 143 lb 03/07/18 03/08/18 03/09/18 06:59 06:59 06:59 Intake Total 360 350 Output Total 475 400 Balance -115 -50 - Physical Examination General/Neuro: alert & oriented x3, NAD Neck: carotid US brisk, no JVD present Lungs: CTA, unlabored respirations Heart: PMI normal Abdomen: NT/ND - Telemetry Telemetry Rhythm: SR<-> A Fib/flutter - Labs Result Diagrams: 03/08/18 03:42 03/08/18 03:42 - Assessment/Plan 1. Atrial fibrillation, persistent: s/p PVAI now with late recurrence of fib and atypical flutter. Being loaded on amiodarone. Mostly rate controlled 100- 115 when out of rhythm today, but now converted back to SR. Continue medical management with AAD and rate control. Discussed need for redo ablation. 2. Syncope and collapse with 9 second pause/SSS: s/p dual chamber PPM last week. Site stable. PPM functioning normally. Continue post implant antibiotics 3. Percardial effusion: post PVAI and remains stable by recent exam. No tamponade 4. 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 She had a brief interruption of OAC surrounding PPM implantation and thrombus could have formed even with her sinus rhythm with the compromised mechanical function of the appendage post isolation. Continue OAC for thrombus resolution. watch for stroke symptoms. 5. Hypotension, transient: somewhat limiting medication options for AF management. Mostly occurs at night. Largely asymptomatic. Discussed how she will ultimately need watchman for MAIRA closure in addition to redo ablation once thrombus is resolved. Will continue to adjust medications for improved arrhythmia control and watch her hypotension. I think she can leave tomorrow if remains stable.
[2018-03-08] MEDS: Simvastatin 20 MG TAB PO SCH (20:47)
[2018-03-08] MEDS ORDERED: Digoxin 0.5 MG/2 ML AMP SLOW IVP SCH (21:00)
[2018-03-08] MEDS: Acetaminophen 325 MG TAB PO PRN (23:27)
[2018-03-09] MEDS: Cephalexin 250 MG CAP PO SCH (06:05)
[2018-03-09] MEDS: Metoprolol Tartrate 25 MG TAB PO SCH (06:06)
[2018-03-09] MEDS: Apixaban 5 MG TAB PO SCH (09:15)
[2018-03-09] MEDS: Amiodarone 200 MG TAB PO SCH (09:15)
[2018-03-09] MEDS: Pramipexole Di-HCl 0.25 MG TAB PO SCH (09:15)
[2018-03-09 11:52] VITALS: BP 105/55; TEMP 97.2
--- NOTE | 2018-03-09 12:50 | DIS ---
DATE OF ADMISSION: 03/03/2018 DATE OF DISCHARGE: 03/09/2018 REFERRING PHYSICIAN: Dr. Carlos Woods ADMITTING DIAGNOSES: 1. Paroxysmal atrial fibrillation, status post ablation 01/19/2017. Recurrence of atypical atrial f lutter requiring amiodarone for suppression. 2. Late recurrence of atrial fibrillation with RVR in August 2017, status post PDAI in 11/2017. 3. History of LINQ recorder placement in 12/01/2017. 4. Second pauses prompting a LINQ recorder explant and dual chamber pacing 02/19/2018. 5. Atrial fibrillation with rapid rates, the likely recent pericardial effusion, prompting observati on on 03/09/2018 after outpatient pacemaker implant. 6. ____ on Eliquis. DISCHARGE DIAGNOSES: 1. Persistent with atrial flutter, status post amiodarone suppression in sinus rhythm. 2. Dual-chamber pacemaker with adequate function. 3. Preexisting pericardial effusion without evidence of tamponade on repeated echocardiograms small to moderate on observation. 4. Left atrial appendage block on RYANN noted on 03/06/2018 on resumed Eliquis anticoagulation. Of no te, the patient had a left atrial appendage ablation during her last procedure. 5. Preserved LV function. 6. Minor left upper extremity phlebitis now resolving. HOSPITAL COURSE: Ms. Barney was admitted on 03/03/2018 after her outpatient pacemaker implantation. During pacemaker implant moderate size pericardial effusion was noted, although there was no defini te suspicion for a cardiac perforation. She was admitted for observation and indeed her pericardial effusion remained unchanged and no pericardial tap was necessary. It was thought to be a residual im planted pericarditis from the ____ the ablation before. On the other hand, atrial fibrillation and flutter was still rapid and eventually required amiodarone for suppression. Finally, she converted back to sinus rhythm and maintained it for last 24 hours pr ior to admission. Prior to that beta blockers were given and also digoxin also for rate control. Sh e had minor left upper arm discomfort with induration around the prior IV site, but that is improving . PHYSICAL EXAMINATION: VITAL SIGNS: Blood pressure 102/60, heart rate 73, respiration 16, temperature 97.4 degrees Fahrenhe it. GENERAL: Alert and oriented woman in no apparent distress. NECK: Supple. Jugular veins not distended. CHEST: Coarse without crackles. HEART: Sounds are regular to rate and rhythm. Left precordial pacing insertion site is without noemi r reaction. Left upper arm mild induration improving. No redness or warmth felt. Telemetry strips reveal sinus rhythm maintenance with atrial and ventricular pacing. Occasional premature atrial cont ractions still noted. LABORATORY DATA: 03/08/2018 - Hemoglobin 11.2, stable, white count 6.9 on 16. Electrolytes in nor mal range. Telemetry strips again revealed converted to sinus rhythm with atrial ventricular pacing the day befo re discharge. Prior to that atrial flutter with difficult rate control was seen. PLAN: Discharge home with amiodarone taper. For now, continue 1 more week of 200 mg 3 times a day, reducing to 200 mg twice a day for 2 weeks and then 200 mg daily after that. She is to continue 5 mg twice a day, apixaban, continue Keflex for duration for a week. We will lower metoprolol tartrate t o 25 mg twice a day. For now will stop digoxin. dairy products maker plans for consideration for Watchman procedure or redo pulmonary venous isolation/left atri al ablation procedure plans are made.
--- NOTE | 2018-03-09 13:19 | RAD ---
CHEST 1 VIEW: Date: 03/09/18 HISTORY: Status post pacemaker placement. COMPARISON: 03/01/18. FINDINGS: There is a left-sided transvenous pacemaker with lead projecting in the expected region of the right atrium and right ventricle. Heart size is mildly enlarged. Pulmonary vessels are within normal limits . Costophrenic angles are clear. Chronic changes lung parenchyma. No pneumothorax or osseous abnormal ities. IMPRESSION: Left-sided transvenous pacemaker as above. POS: [facility]
--- NOTE | 2018-03-09 17:53 | PRG ---
DATE OF SERVICE: 03/09/2018 SERVICE: Pulmonary Medicine. INTERVAL HISTORY: The patient is doing fine from a respiratory standpoint. There has been no interval change to her condition. She denies any chest pain, shortness of breath, fevers or chills. Otherwise, there has been no interval change to her condition. PHYSICAL EXAMINATION: VITAL SIGNS: Afebrile, pulse 73, blood pressure 102/60, respirations 16, saturation 98% on room air. GENERAL: The patient is awake, alert, no apparent distress. LUNGS: Excellent air entry. There is no prolonged expiratory phase or wheezing. HEART: Tachycardic. Irregular. ABDOMEN: Soft, nontender, nondistended. Bowel sounds are positive. MUSCULOSKELETAL: No cyanosis or clubbing. There is no pitting in the bilateral lower extremities. NEUROLOGIC: Grossly nonfocal. IMAGING DATA: Chest x-ray demonstrates no acute cardiopulmonary abnormality. There is new pacemaker in good position. ASSESSMENT: 1. Atrial fibrillation, paroxysmal. 2. Sick sinus syndrome, status post pacemaker placement. 3. Pericardial effusion with no tamponade physiology. 4. Atrial clot. 5. Obstructive sleep apnea, suspected. 6. Restless leg syndrome. DISCUSSION AND PLAN: The patient is doing fine from a respiratory standpoint. She is being considered for transition out of the hospital today which is perfectly reasonable. I have her follow up with me in the outpatient setting to investigate her suspected sleep apnea. BHARGAV
== END 2018-03-09 13:42 | disposition home or self-care (01) | DRG 309 ==
LOC: IMCU/EMU 12:48
PROVIDERS: ADMIT Internal Medicine Cardiovascular Disease; ATTEND Internal Medicine Cardiovascular Disease
DX: I48.0 Paroxysmal atrial fibrillation (principal); I31.3 Pericardial effusion (noninflammatory); I48.92 Unspecified atrial flutter; G25.81 Restless legs syndrome; M19.90 Unspecified osteoarthritis, unspecified site; I10 Essential (primary) hypertension; K58.9 Irritable bowel syndrome, unspecified; I49.5 Sick sinus syndrome; Z95.0 Presence of cardiac pacemaker; Z79.899 Other long term (current) drug therapy; Z79.01 Long term (current) use of anticoagulants; E78.5 Hyperlipidemia, unspecified; Z88.5 Allergy status to narcotic agent; G47.33 Obstructive sleep apnea (adult) (pediatric); I51.3 Intracardiac thrombosis, not elsewhere classified; I42.9 Cardiomyopathy, unspecified; I80.9 Phlebitis and thrombophlebitis of unspecified site; R55 Syncope and collapse; I35.1 Nonrheumatic aortic (valve) insufficiency
CPT/HCPCS: 36415; 71045; 80048; 80053; 82550; 82553; 82565; 83735; 84443; 84484; 85014; 85018; 85025; 85049; 85610; 85730; 93005; 93306; 93312; 96361; 96374; 96375; J0282; J1160; J2704; J7070

== ENCOUNTER 2018-03-11 22:09 | Emergency (ER) | payer MEDICARE, OTHER ==
[2018-03-11 23:14] LABS: #Basophils 0.1 thou/uL (0.0-0.2); #Eosinphils 0.2 thou/uL (0.0-0.7); #Lymphocytes 1.6 thou/uL (1.20-3.40); #Monocytes 0.7 thou/uL (0.11-0.59); %Basophils 0.6 % (0.0-1.0); %Eosinophils 2.7 % (0.0-10.0); %Lymphocytes 18.7 % (21.0-51.0); %Monocytes 8.4 % (0.0-10.0); %Neutrophils 69.6 % (42.0-75.0); Hemoglobin 10.4 g/dL (12.0-16.0); Mean Corpuscular HGB CONC 32.6 g/dL (32.0-36.0); Mean Corpuscular Hemoglobin 30.2 pg (27.0-31.0); Mean Corpuscular Volume 92.7 fL (78.0-98.0); Mean Platelet Volume 7.2 fL (7.4-10.4); Platelet Count 289 thou/uL (130-400); RBC Distribution Width 13.9 % (11.5-14.5); Red Blood Cell (RBC) Count 3.43 mill/uL (4.20-5.40); White Blood Cell (WBC) Count 8.6 thou/uL (4.8-10.8)
--- NOTE | 2018-03-11 23:31 | RAD ---
KUB AND UPRIGHT AND PA CHEST: 03/11/18 HISTORY: Abdominal distention. Bowel gas pattern is nonobstructive. No free air. No radiopaque calculi. There are arthritic changes. Scoliotic deformity convexed to the left. PA CHEST: Heart size is enlarged with a pacemaker in place. The lungs are clear. of any infiltrative process. N o signs of failure. IMPRESSION: No acute findings. POS: [facility]
[2018-03-11 23:36] LABS: ALT (SGPT) 34 U/L (8-55); AST (SGOT) 34 U/L (5-34); Albumin 3.4 g/dL (3.4-4.8); Alkaline Phosphatase 154 U/L (40-150); Anion Gap 10 mmol/L (10-20); BUN (Urea Nitrogen) 21 mg/dL (9.8-20.1); Bilirubin, Total 0.3 mg/dL (0.2-1.2); Calc. Creatinine Clearance 0 mL/min (70-130); Calcium 9.1 mg/dL (7.8-10.44); Carbon Dioxide 27 mmol/L (23-31); Chloride 104 mmol/L (98-107); Estimated GFR-MDRD 48; Globulin 3.5 g/dL (2.4-3.5); Glucose 106 mg/dL (83-110); Lipase 25 U/L (8-78); Potassium 3.7 mmol/L (3.5-5.1); Protein, Total 6.9 g/dL (6.0-8.3); Sodium 137 mmol/L (136-145)
== END 2018-03-12 00:40 | disposition home or self-care (01) ==
LOC: ERS 22:09
DX: K59.00 Constipation, unspecified (principal); I10 Essential (primary) hypertension; I48.91 Unspecified atrial fibrillation; Z79.899 Other long term (current) drug therapy
CPT/HCPCS: 36415; 74022; 80053; 83690; 85025; 93005

== ENCOUNTER 2018-03-30 16:15 | Emergency (ER) | payer MEDICARE, OTHER ==
[2018-03-30 16:43] LABS: #Eosinphils 0.1 thou/uL (0.0-0.7); #Lymphocytes 1.2 thou/uL (1.20-3.40); #Monocytes 0.8 thou/uL (0.11-0.59); #Neutrophils 6.3 thou/uL (1.40-6.50); %Basophils 0.4 % (0.0-1.0); %Eosinophils 1.6 % (0.0-10.0); %Lymphocytes 14.4 % (21.0-51.0); %Monocytes 9.1 % (0.0-10.0); %Neutrophils 74.4 % (42.0-75.0); Hemoglobin 10.6 g/dL (12.0-16.0); Mean Corpuscular HGB CONC 31.9 g/dL (32.0-36.0); Mean Corpuscular Hemoglobin 29.9 pg (27.0-31.0); Mean Corpuscular Volume 93.8 fL (78.0-98.0); Mean Platelet Volume 7.6 fL (7.4-10.4); Platelet Count 247 thou/uL (130-400); RBC Distribution Width 15.1 % (11.5-14.5); Red Blood Cell (RBC) Count 3.53 mill/uL (4.20-5.40); White Blood Cell (WBC) Count 8.4 thou/uL (4.8-10.8)
[2018-03-30 17:05] LABS: ALT (SGPT) 19 U/L (8-55); AST (SGOT) 25 U/L (5-34); Albumin 3.7 g/dL (3.4-4.8); Alkaline Phosphatase 112 U/L (40-150); Anion Gap 15 mmol/L (10-20); BUN (Urea Nitrogen) 20 mg/dL (9.8-20.1); Bilirubin, Total 0.8 mg/dL (0.2-1.2); CK (CPK) 42 U/L (29-168); Calc. Creatinine Clearance 0 mL/min (70-130); Calcium 9.3 mg/dL (7.8-10.44); Carbon Dioxide 23 mmol/L (23-31); Chloride 102 mmol/L (98-107); Estimated GFR-MDRD 39; Globulin 3.5 g/dL (2.4-3.5); Glucose 101 mg/dL (83-110); Lipase 56 U/L (8-78); Potassium 3.4 mmol/L (3.5-5.1); Protein, Total 7.2 g/dL (6.0-8.3); Sodium 137 mmol/L (136-145)
--- NOTE | 2018-03-30 17:05 | RAD ---
UPRIGHT PORTABLE CHEST ONE VIEW: 03/30/18 HISTORY: 72-year-old female with history of shortness of breath and weakness, prior pacemaker placed approxima tely three weeks ago. COMPARISON: 03/11/18. FINDINGS: Left ICD is noted. Cardiomegaly. Bilateral vascular congestion with interstitial edema changes and sm all pleural effusions which appear to be minimally progressive from the prior study. IMPRESSION: Worsening vascular congestion and minimal interstitial edema and pleural effusions with cardiomegaly, evidence for developing congestive heart failure. POS: [facility]
[2018-03-30 17:07] LABS: Troponin I Less than 0.010 ng/mL (< 0.028)
[2018-03-30] MEDS ORDERED: Dicyclomine 20 MG TAB ONE (18:16)
[2018-03-30] MEDS ORDERED: Lidocaine Viscous Sol 2% 15 ml UD Cup ONE (18:16)
[2018-03-30] MEDS ORDERED: Mag-Al 1200 mg/1200 mg/30 ML UDCUP ONE (18:17)
[2018-03-30] MEDS ORDERED: Pantoprazole 40 MG VIAL ONE (18:17)
[2018-03-30] MEDS ORDERED: Ondansetron HCl/PF 4 MG/2 ML Vial ONE (18:17)
--- NOTE | 2018-03-30 18:54 | CT ---
CTA CHEST WITH CONTRAST: 03/30/18 Multiple axial tomograms obtained through the chest following pulmonary angio protocol with multiplan ar reconstruction and 3D postprocessing. INDICATION: Dyspnea. Recent surgery. FINDINGS: There is cardiomegaly with vascular congestion. Lung puckett show diffuse hazy ground glass opacity co nsistent with interstitial and early alveolar edema. There are moderate sized bilateral pleural effus ions. The pulmonary arteries are adequately opacified. There is no evidence of pulmonary embolus. There is a small pericardial effusion. IMPRESSION: 1. Cardiomegaly with vascular congestion. 2. Small to moderate bilateral pleural effusions. 3. Small pericardial effusion. 4. No evidence of pulmonary embolus. POS: [facility]
--- NOTE | 2018-03-30 19:44 | CT ---
CT ADOMEN AND PELVIS WITH IV CONTRAST: 03/30/18 HISTORY: Abdominal pain, distention. FINDINGS: The lower thoracic images demonstrate bilateral pleural effusions and pericardial effusion. No free a ir or lymphadenopathy seen in the abdomen or pelvis. There is a small amount of free fluid in the abd omen and pelvis. The liver, spleen, pancreas, adrenal glands, and right kidney are unremarkable. Ther e is a small nonobstructing left renal calculus. Uterus is present. There is increased density in the gallbladder. The small bowel loops are not abnormally dilated. There are vascular calcifications wit hout evidence of aneurysmal dilatation of the abdominal aorta. Degenerative changes are present in t he spine. IMPRESSION: 1. Pericardial effusion. 2. Bilateral pleural effusions. 3. High density material in the gallbladder which could be due to vicarious excretion of contras t, gallstones or sludge. Evaluation with gallbladder ultrasound would be helpful. 4. Mild ascites. 5. No evidence of bowel obstruction. POS: [facility]
== END 2018-03-30 19:50 | disposition home or self-care (01) ==
LOC: ERS 16:15
DX: J90 Pleural effusion, not elsewhere classified (principal); I10 Essential (primary) hypertension; I48.91 Unspecified atrial fibrillation; Z79.899 Other long term (current) drug therapy
CPT/HCPCS: 71045; 71275; 74177; 80053; 82550; 82553; 83690; 83880; 84484; 85025; 93005; 96374; 96375; C9113; J2405

== ENCOUNTER 2018-04-03 10:52 | Inpatient (IN) | payer MEDICARE, OTHER ==
[2018-04-03 11:23] LABS: #Eosinphils 0.3 thou/uL (0.0-0.7); #Lymphocytes 1.1 thou/uL (1.20-3.40); #Monocytes 0.7 thou/uL (0.11-0.59); #Neutrophils 5.5 thou/uL (1.40-6.50); %Basophils 0.5 % (0.0-1.0); %Eosinophils 3.3 % (0.0-10.0); %Lymphocytes 14.3 % (21.0-51.0); %Monocytes 9.5 % (0.0-10.0); %Neutrophils 72.4 % (42.0-75.0); Hemoglobin 11.3 g/dL (12.0-16.0); Mean Corpuscular HGB CONC 31.9 g/dL (32.0-36.0); Mean Corpuscular Hemoglobin 29.9 pg (27.0-31.0); Mean Corpuscular Volume 93.7 fL (78.0-98.0); Mean Platelet Volume 8.1 fL (7.4-10.4); Platelet Count 274 thou/uL (130-400); RBC Distribution Width 15.5 % (11.5-14.5); Red Blood Cell (RBC) Count 3.78 mill/uL (4.20-5.40); White Blood Cell (WBC) Count 7.6 thou/uL (4.8-10.8)
[2018-04-03] MEDS ORDERED: Nitroglycerin 2% Ointment 1 INCH/1 GM Packet ONE ×2 (11:27→11:54)
[2018-04-03] MEDS ORDERED: Furosemide 40 MG/4 ML VIAL ONE (11:27)
--- NOTE | 2018-04-03 11:36 | RAD ---
CHEST ONE VIEW: History: Dyspnea. Comparison: 03-30-18 FINDINGS: Heart size is enlarged. Layering effusions. Moderate edema. No pneumothorax. Dual-lead pacer is in pl lara. IMPRESSION: Cardiomegaly, moderate edema, and layering effusions. POS: [facility]
[2018-04-03 11:49] LABS: CKMB 2.3 ng/mL (0-6.6); Troponin I Less than 0.010 ng/mL (< 0.028)
[2018-04-03 13:09] LABS: ALT (SGPT) 20 U/L (8-55); AST (SGOT) 28 U/L (5-34); Albumin 3.5 g/dL (3.4-4.8); Alkaline Phosphatase 108 U/L (40-150); Anion Gap 14 mmol/L (10-20); BUN (Urea Nitrogen) 23 mg/dL (9.8-20.1); Bilirubin, Total 0.7 mg/dL (0.2-1.2); CK (CPK) 160 U/L (29-168); Calc. Creatinine Clearance 0 mL/min (70-130); Calcium 9.2 mg/dL (7.8-10.44); Carbon Dioxide 26 mmol/L (23-31); Chloride 103 mmol/L (98-107); Estimated GFR-MDRD 36; Globulin 3.6 g/dL (2.4-3.5); Glucose 99 mg/dL (83-110); Lipase 53 U/L (8-78); Protein, Total 7.1 g/dL (6.0-8.3); Sodium 139 mmol/L (136-145)
[2018-04-03] MEDS ORDERED: Pramipexole Di-HCl 0.25 MG TAB PO SCH ×2 (14:30→16:30)
[2018-04-03 14:47] LABS: Troponin I Less than 0.010 ng/mL (< 0.028)
[2018-04-03] MEDS ORDERED: cloNIDine 0.1 MG TAB PO PRN (15:35)
[2018-04-03] MEDS ORDERED: hydrALAZINE 20 MG/ML VIAL SLOW IVP PRN (15:35)
[2018-04-03] MEDS ORDERED: Nitroglycerin 0.4 MG TAB (25 Tab Bottle) SL PRN (15:35)
[2018-04-03] MEDS ORDERED: Senokot S 8.6-50 MG TAB PO PRN ×2 (15:35)
[2018-04-03] MEDS ORDERED: Benzonatate 100 MG CAP PO PRN (15:35)
[2018-04-03] MEDS ORDERED: Calcium Carbonate 500 MG ChewTAB PO PRN (15:35)
[2018-04-03] MEDS ORDERED: Furosemide 40 MG/4 ML VIAL SLOW IVP SCH ×2 (16:15→21:00)
[2018-04-03 16:17] VITALS: BMI 28.5
--- NOTE | 2018-04-03 16:48 | HP ---
DATE OF ADMISSION: 04/03/2018 PRIMARY CARE PHYSICIAN: Agustina Gamboa. CHIEF COMPLAINT: Worsening shortness of breath, abdominal discomfort, and swelling and tightness. HISTORY OF PRESENTING ILLNESS: Ms. Barney is a pleasant 72-year-old female with past medical histor y of systolic congestive heart failure, recurrent atrial fibrillation, left atrial appendage thrombus on Eliquis, history of sick sinus syndrome, status post pacemaker placement on 03/03/2018, pericardi al effusion, aortic insufficiency and hypertension, who presented to the emergency room with above-me ntioned complaint. History is mainly obtained by the patient herself and supplemented in kala turner l by her son present at the bedside. Electronic medical records have been reviewed. The patient was recently admitted to our facility in 02/2018 under the care of Dr. Kasper from . She was admitted after she has gotten a pacemaker placement on 03/03/2018 and was noted to have a perica rdial effusion which was moderate size. She was admitted for observation status. She actually had a trial flutter and fibrillation with RVR and required amiodarone for that. She was eventually dischar ged on beta-blockers and amiodarone and converted to sinus rhythm prior to discharge. She was also d ischarged on Lasix once a day. Her last echocardiogram done on 03/03/2018 showed EF of 35% -40% and small pericardial effusion. Prior to that, she had an echo done in 11/2017, which showed EF of 50%-5 5%. She was also discharged on Eliquis for findings of thrombus in the left atrial appendage. It is unclear to me if this left atrial appendage thrombus was found out prior to her pacemaker placement or during her last hospitalization. Anyway, she is on lifelong oral anticoagulation for this. Sasha beaulieu at Dr. Kasper's note from last time, he is thinking about possibly placing a Watchman device for lef t atrial appendage closure and the son tells me that she has an appointment next month for same as we ll as for redo of ablation. She came to the ER multiple times in the last few weeks. She has been here on the with complain ts of shortness of breath. At that time, a CT angio as well as CT abdomen and pelvis was done and th ey were discharged after being told that she has intestinal obstruction and she was discharged on lax atives. Bilateral pleural effusions were seen at that time. There was no PE. She came back to the emergency room today with persistent symptoms and shortness of breath. Even tho ugh her BNP was normal, chest x-ray was once again consistent with congestion and bilateral pleural e ffusions. She was visibly short of breath requiring oxygen per nasal cannula. She is now being admi tted with possible acute congestive heart failure exacerbation, likely systolic in nature. She does report that Dr. Gamboa has recently increased her Lasix to twice a day which she has been doing for th e last 2 days without any benefit. She complains of some abdominal tightness right under the ribcage and "pocket of fluid" on the left upper quadrant. She denies any chest pain, but has significant sh ortness of breath, orthopnea and PND. She has noticed mild lower extremity swelling, but her main co mplaint of swelling is in her abdomen. She is significantly short of breath and has started to have a dry cough for the last 2 days. She otherwise denies any fever, chills, or recent illnesses. She d enies any sick contacts. No nausea, vomiting or diarrhea. No dysuria, frequency, urgency. PAST MEDICAL HISTORY: 1. Chronic systolic congestive heart failure, last ejection fraction 35%-40% on 02/2018. 2. History of sick sinus syndrome, status post pacemaker placement on 03/03/2018. 3. History of atrial flutter and fibrillation with reoccurrence status post ablation. 4. Left atrial appendage thrombus on oral anticoagulation. 5. History of irritable bowel syndrome. 6. Restless legs syndrome. 7. History of aortic insufficiency. 8. Degenerative joint disease. 9. Hypertension. PAST SURGICAL HISTORY: 1. Prior heart catheterization. 2. Cardiac ablation. 3. Pacemaker placement. SOCIAL HISTORY: She is living with her son. No history of drug, tobacco or alcohol abuse. CODE STATUS: FULL CODE. Discussed with the patient and her son who is the medical power of banquet server . ALLERGIES: MORPHINE. FAMILY HISTORY: No significant family history of premature coronary artery disease. Her father had lung cancer. Mother had emphysema. Heart disease running in her family. HOME MEDICATIONS: They have not been updated as yet, but according to the most recent ER note, she i s on following; pramipexole 0.5 mg b.i.d., simvastatin 20 mg daily, metoprolol succinate 12.5 mg flaco y, Eliquis 5 mg b.i.d., amiodarone 200 mg daily. REVIEW OF SYSTEMS: A twelve-point review of systems is done and it is negative except for those ment ioned in the history and physical. LABORATORY DATA AND IMAGING DATA: CBC shows WBC 7.6, hemoglobin 11.3, platelet count of 274. Serum chemistries unremarkable except for BUN of 23 and creatinine of 1.44, which seems to be elevated from her baseline, which is normal. Cardiac enzymes are negative x2. BNP normal at 93 and lipase at 53. Chest x-ray done in the emergency room today shows pulmonary vascular congestion as well as moderat e layering bilateral pleural effusion and cardiomegaly. A 12-lead EKG done in the emergency room aroldo ws normal sinus rhythm with paced rhythm, ventricularly paced. Heart rate 147 at the time of EKG. S T segment and T waves are normal. PHYSICAL EXAMINATION: VITAL SIGNS: Most recent vital signs; temperature 98.1, pulse of 68, respirations 19, saturating 100 % on 3 liters nasal cannula, blood pressure 153/73. GENERAL: She is easily winded with short sentences. She is not using any accessory muscles, but is in at least mild respiratory distress with conversation. Son is at bedside. She is awake, alert, or iented, otherwise. HEENT: Mucous membrane is moist and pink. No oropharyngeal exudate or erythema. Head is normocepha lic, atraumatic. Pupils are equal and reactive to light and accommodation. Extraocular movement int act. NECK: Supple without any lymphadenopathy, JVD or bruit. CHEST: Examination showed bibasilar crackles as well as decreased breath sound at bases. HEART: Regular rate and rhythm is regular without any murmur, rubs or gallops. ABDOMEN: Showing some subcutaneous edema without any evidence of fluid wave. She does not have any right upper quadrant tenderness. Bowel sounds are heard fairly equally. Show trace pitting edema bi laterally. NEUROLOGIC: Examination is nonfocal. SKIN: Free of any rashes or bruises. Feels warm and dry to touch. PSYCHIATRIC: Normal affect. IMPRESSION AND PLAN: 1. Acute hypoxic respiratory distress. This is secondary to acute congestive heart failure exacerba tion. The patient has proven systolic congestive heart failure as well as pericardial and pleural ef fusion. At this time, combination of cardiac and pulmonary causes cannot be ruled out. We will cont inue to diurese her. She had a CT scan of the chest, abdomen, and pelvis done 4 days ago which showe d findings of pericardial and pleural effusion. We will consult Cardiology as she might need repeat echocardiogram to assess for pericardial effusion. She also has a left atrial appendage thrombus for which she is on Eliquis, which we will continue. No evidence to suggest ACS at this time. We will continue to trend serial cardiac enzymes. We will restart her home medications. Oxygen by nasal can nula will be provided as needed. We will also consult Pulmonary Medicine if her cardiac workup is un changed from prior for pleural effusions. 2. Left atrial appendage thrombus. We will continue her Eliquis for now and monitor hemoglobin and hematocrit closely. 3. Paroxysmal recurrent atrial fibrillation and flutter. The patient is scheduled for left atrial a ppendage Watchman device as well as a redo of the ablation as an outpatient. Currently, she is in no rmal sinus rhythm and we will continue her on amiodarone and metoprolol. 4. History of sick sinus syndrome, status post pacemaker placement. Her pacemaker site looks well h ealing without any erythema. 5. Restless legs syndrome. Restart her pramipexole. 6. Hypertension. We will restart her metoprolol and monitor. Add p.r.n. antihypertensives as well. 7. Deep venous thrombosis and gastrointestinal prophylaxis. 8. Code status: FULL CODE. Discussed with the patient and her son present in the room. DISPOSITION: Ms. Barney is currently being admitted to the hospital for acute hypoxic respiratory f ailure due to acute systolic congestive heart failure. Further management will depend upon her clini teresita course. Estimated length of stay at this time is at least 2-3 midnights.
[2018-04-03 18:27] LABS: Troponin I Less than 0.010 ng/mL (< 0.028)
--- NOTE | 2018-04-03 18:58 | ULT ---
SONOGRAM RIGHT UPPER QUADRANT: HISTORY: Right upper quadrant pain. FINDINGS: Nonshadowing echogenic material is apparent within the dependent portion of the gallbladder lumen. N o gallbladder wall thickening or pericholecystic fluid. The common duct is 0.3 cm. The liver is unr emarkable without focal mass or intrahepatic biliary dilatation. Right pleural fluid is partially vi sualized. IMPRESSION: 1. Biliary sludge within the gallbladder is consistent with chronic gallbladder dyskinesis. No evid ence of acute biliary obstruction. 2. Right pleural fluid. POS: [facility]
[2018-04-03] MEDS: Famotidine 20 MG TAB PO SCH (20:35)
[2018-04-03] MEDS: Apixaban 5 MG TAB PO SCH (20:35)
[2018-04-03 23:09] LABS: Hemoglobin 10.5 g/dL (12.0-16.0); Platelet Count 270 thou/uL (130-400)
[2018-04-04 05:19] LABS: #Basophils 0.1 thou/uL (0.0-0.2); #Eosinphils 0.3 thou/uL (0.0-0.7); #Lymphocytes 1.1 thou/uL (1.20-3.40); #Monocytes 0.8 thou/uL (0.11-0.59); #Neutrophils 4.8 thou/uL (1.40-6.50); %Basophils 0.9 % (0.0-1.0); %Eosinophils 4.3 % (0.0-10.0); %Lymphocytes 15.4 % (21.0-51.0); %Neutrophils 68.3 % (42.0-75.0); Hemoglobin 9.6 g/dL (12.0-16.0); Mean Corpuscular HGB CONC 31.9 g/dL (32.0-36.0); Mean Corpuscular Hemoglobin 29.9 pg (27.0-31.0); Mean Corpuscular Volume 93.7 fL (78.0-98.0); Mean Platelet Volume 7.3 fL (7.4-10.4); Platelet Count 241 thou/uL (130-400); RBC Distribution Width 15.4 % (11.5-14.5); Red Blood Cell (RBC) Count 3.22 mill/uL (4.20-5.40)
[2018-04-04] MEDS: Furosemide 40 MG/4 ML VIAL SLOW IVP SCH ×2 (05:35→14:46)
[2018-04-04] MEDS: Acetaminophen 325 MG TAB PO PRN (05:37)
[2018-04-04] MEDS: Ondansetron PF 4 MG/2 ML Vial IVP PRN (05:37)
[2018-04-04 05:42] LABS: Anion Gap 11 mmol/L (10-20); BUN (Urea Nitrogen) 19 mg/dL (9.8-20.1); Calc. Creatinine Clearance 40 mL/min (70-130); Calcium 8.9 mg/dL (7.8-10.44); Carbon Dioxide 30 mmol/L (23-31); Chloride 102 mmol/L (98-107); Estimated GFR-MDRD 40; Glucose 92 mg/dL (83-110); Potassium 3.3 mmol/L (3.5-5.1); Sodium 140 mmol/L (136-145)
--- NOTE | 2018-04-04 08:33 | CON ---
DATE OF CONSULTATION: 04/03/2018 ROOM NUMBER: [id number] PRIMARY CARE PHYSICIAN: Agustina Gamboa M.D. PRIMARY MOISTURE CONDITIONER OPERATOR: Carlos Woods M.D. PRIMARY PBX REPAIRER: Saleem Kasper M.D. REFERRING PHYSICIAN: Savannah Flores M.D. REASON FOR CARDIOLOGY CONSULTATION: Congestive heart failure. HISTORY OF PRESENT ILLNESS: Mrs. Barney is a very pleasant, nice lady, 72-year-old female with a significant history of atrial fibrillation and atrial flutter with status post ablation x2, t he last one in 11/2017, pacemaker placement secondary to sick sinus syndrome, hypertension, and chron ic systolic congestive heart failure and history of left atrial appendage thrombosis with Eliquis 5 m g twice a day. After patient's last admission that was 02/2018, patient underwent dual pacemaker tor cement. Since patient was discharged on 03/09, the patient started having worsening shortness of alek ath with abdomen bloating. She had been in the emergency department for 3 times since 03/09 to this time for complaint of shortness of breath. She was instructed to take the laxative for possible cons tipation which did not improve her symptoms and she was also instructed to take a Lasix 40 mg twice a day p.o., she tried for the last 3 days; however, the patient's symptoms did not improve. After the patient notified Dr. Woods's office and Dr. Kasper's office, the patient was instructed to present to emergency department for further evaluation and treatment. Since the patient was given the Lasix IV, patient's shortness of breath and abdominal bloating have been improved. However, her shortness of breath gets worse with talking or mild movement and she requires 3 L nasal cannula. At home, she has watched her fluid and salt intake very carefully, also her blood pressure has been in 120s to 130 s on the systolic side with heart rate around 60-70s. She has not seen the blood pressure show irreg ular or error which would indicate atrial fibrillation or atrial flutter. She used to walk 1-2 miles a day prior to pacemaker placement. Since then, when she walked to the bathroom, she has worsening of shortness of breath. The patient's echocardiogram was done on 03/03/2018 which shows EF of 35%-40 % with a small pericardial effusion. Prior to the patient's echocardiogram, EF was 50%-55% in 8. She had been on Eliquis 5 mg twice a day for history of left atrial appendage thrombus and she pl ans to undergo Watchman device placement by Dr. Liu in [place] in the near future. The patient's last echocardiogram was done in 03/03 which shows EF of 35%-40%, mildly dilated left at rium, mildly increased left ventricular size, mild aortic regurgitation, mild mitral regurgitation an d mild tricuspid regurgitation and a small circumferential pericardial effusion. Chest thoracic CTA on 03/30 shows cardiomegaly with vascular congestion, small to moderate bilateral pleural effusion an d a small pericardial effusion. No evidence of pulmonary embolism. PAST MEDICAL HISTORY: According to the patient's past medical record shows, the patient has had card iac catheterization; however, we cannot find the patient's record of the current cardiac catheterizat ion at this moment. Chronic systolic congestive heart failure, EF of 35%-40% in 02/2018, dual pacema ker placement on 03/03/2018 secondary to sick sinus syndrome, history of atrial flutter and atrial fi brillation with status post ablation x2, last one was in 11/2017, left atrial appendage thrombosis wi th Eliquis 5 mg twice a day. Hypertension, hyperlipidemia, arthritis, history of irritable bowel syn drome, which is well managed and controlled in the last 5 years. Restless leg syndrome, degenerative joint disease and the patient has a history of rheumatic fever at the age of 1-2 years. PAST SURGICAL HISTORY: Cardiac ablation x2, thus latest one in 11/2017, dual pacemaker placement in 02/2018. FAMILY HISTORY: The patient's mother and father due to lung cancer secondary to the heavy s moker. The patient's brother due to the myocardial infarction. Complication of his congest hector heart failure and lung cancer and he also was a severe heavy smoker. The patient's grandmother i n the maternal side has a history of diabetes. SOCIAL HISTORY: She is a . She is living with her son's family. The patient denied any histor y of tobacco, EtOH or illicit drug abuse. Prior to the pacemaker placement in 02/2018, she used to w [facility] 1-2 miles a day without any cardiac complaints. She drank a half cup of coffee every morning. U sually, she watched her salt intake and she drinks 3-5 glasses of fluid a day. ALLERGIES: She is allergic to MORPHINE. MEDICATIONS: She takes simvastatin 20 mg once a day, Mirapex 0.5 mg twice a day, metoprolol succinat e 50 mg twice a day, Eliquis 5 mg twice a day, amiodarone 200 mg once a day. REVIEW OF SYSTEMS: A 12-point review of systems was negative, unless otherwise mentioned in the HPI. The patient denies any bloody stool or urine or severe bruises. PHYSICAL EXAMINATION: VITAL SIGNS: Blood pressure 153/73, temperature 98.1, pulse is 68, AV pacing, respiratory rate 19, O 2 sat 98% on 3 liters nasal cannula. GENERAL: The patient is alert, oriented x4. Not in acute distress. HEAD: Normocephalic, atraumatic. EYES: Extraocular muscle movement intact. ENT AND MOUTH: Nasal and oral mucosa is moist without lesion. NECK: Supple. Normal range of motion. No carotid bruits. Carotid pulse is present without bruit o r thrill. RESPIRATORY: Clear to auscultation bilaterally, but diminished at the bases. CARDIOVASCULAR: Regular rate and rhythm. Normal S1, S2, and there are no S3, S4. No significant mu rmur, hives, or thrill noted. There are 2+ pulses in bilateral lower extremities. No edema to the b ilateral lower extremities. ABDOMEN: Fluid to the abdomen, left lateral abdomen side. No mass or discomfort to the palpation. Hypoactive bowel sounds. SKIN: Warm and dry. No rash, bruise noted. PSYCHIATRIC: The patient alert, oriented x4, nonfocal. LABORATORY DATA: WBC 7.6, hemoglobin 11.3, hematocrit 35.4, platelets 274. Sodium of 139, potassium of 4.0, BUN 23, creatinine 1.44, AST 28, ALT 20. CK-MB 2.3. Troponins negative x3. BNP is 93.7. ASSESSMENT AND PLAN: 1. Acute on chronic systolic heart failure, although an echocardiogram on the 03/03/2018 shows eject ion fraction of 35%-40%. The patient's dual pacemaker AV pacing 100% that caused the ejection fraction decreased. The patient has another echocardiogram ordered and the results are pending at th is moment. If the patient's ejection fraction is decreased at this time, we would suggest pacemaker upgrade to the biventricular pacemaker. The patient is stable with the Lasix 40 mg IV twice a day an d the patient is going to have a BNP check tomorrow morning and also we would like to resume the carri ent's beta elia when the patient continues to be stable. LILO inhibitor or ARB is on hold at this moment due to the acute kidney insufficiency. 2. History of atrial fibrillation and atrial flutter with status post ablation. The patient is on a miodarone 200 mg once a day, Eliquis 5 mg twice a day. We would like to continue to monitor on the t elemetry. 3. Pacemaker placement secondary to sick sinus syndrome. Telemetry records showing the patient is 1 00% AV pacing at this moment. Possible patient needs upgrade to biventricular pacemaker if the patie nt's ejection fraction suddenly gets lower. 4. History of left atrial appendage thrombosis. The patient on Eliquis 5 mg twice a day. We would like to continue. 5. Hypertension. The patient's blood pressure is elevated at this time; however, is only one time a nd the patient's usually blood pressure at home with 120 to 130. We would like to defer the medicati on management to the Dr. Woods from tomorrow morning. 6. Hyperlipidemia. She is on simvastatin home 20 mg. We would like to defer to Dr. Woods. Thank you very much for allowing the Cardiology service to participate in care of this patient. We w ill follow along the patient's care team and we will make recommendations as appropriate. From adri garcia, Dr. Woods will follow this patient.
--- NOTE | 2018-04-04 08:35 | ADD-CON ---
DATE OF CONSULTATION: 04/03/2018 ADDENDUM Please refer the notes already dictated by my nurse practitioner, Lilliam López. We have seen the carri ent together and we have discussed with this patient and she will dictate the majority of this dictat ion. INDICATION FOR CONSULTATION: A 72-year-old female with CHF exacerbation, appears to be more systolic than diastolic. She has had a recent pacemaker insertion since that time. She did well for about a week and then noticed that she had increasing shortness of breath, dyspnea on exertion, lower extrem ity edema extending to the abdominal area, and also had evidence of abdominal bloating and distention and does have abdominal wall edema. She did undergo an abdominal ultrasound today, which showed tejas dence of some right pleural fluid, but no significant ascites was noted. She did have some biliary s ludge within the gallbladder with chronic gallbladder dyskinesis, but no evidence of any other signif icant abnormalities were noted. It does not appear to be ascites. She may have decreased motility a ssociated with worsening of congestive heart failure. It appears that since her pacemaker was insert ed that her symptoms have worsened and she may have had decreased left ventricular systolic function. She appears to be completely 100% pacing at this time and she may need to undergo an upgrade to a b iventricular device. We will ask for an echocardiogram tomorrow and if ejection fraction has deterio rated further, then she will need to undergo upgrade to a biventricular device. In the meantime, we will continue her diuretics and see if we can diurese her with the fluid off. We will continue her o ther medications. She is apparently in congestive heart failure and we will continue her medications . PHYSICAL EXAMINATION: GENERAL: Reveals an elderly female who is in no acute distress, but does appear to be somewhat uncom fortable. VITAL SIGNS: Blood pressure is 153/73. She is afebrile. Heart rate is 16. She has 100% pacing. R espiratory rate is about 20, O2 saturations are 98%. HEENT: Unremarkable. CHEST: Has bibasilar crackles. CARDIOVASCULAR: Regular rhythm. I did not hear any significant murmurs. ABDOMEN: Some mild distention, but positive bowel sounds are present. She has abdominal wall edema noted. EXTREMITIES: Lower extremities also have mild edema. Pedal pulses are present. She has a well-heal ed surgical incision or is still healing underneath the left infraclavicular area for her pacemaker i nsertion. NEUROLOGIC: She appears to be intact. SKIN: Warm and dry. LABORATORY DATA: Hemoglobin of 11.3, WBC of 7.6, platelet count 274,000. Her creatinine is 1.44 wit h a BUN of 23. Sodium is 139, potassium is 4. Her creatinine level has increased from 1.1 in tricia to 1.4 now, compatible with most likely decreased cardiac output and worsening of renal function. IMPRESSION: Congestive heart failure exacerbation, most likely associated with decrease in left vent ricular systolic function with ejection fraction deteriorating after pacemaker insertion. Ejection f raction as noted by the notes from the nurse practitioner had showed the ejection fraction has decrea sed, and we will repeat the echocardiogram tomorrow. Most likely the patient will need to be re-eval uated by Electrophysiology and then may need to undergo an upgrade to a biventricular pacemaker. She also has had a history of atrial fibrillation ablation in the past. At this time, she appears to be in sinus rhythm. At least she appears to be A paced and V paced. We will interrogate the pacemaker to see whether or not she has had any evidence of further atrial fibrillation. Further care of the patient will be dictated by Dr. Woods when he visits with the patient tomorrow.
[2018-04-04] MEDS: Apixaban 5 MG TAB PO SCH (08:46)
[2018-04-04] MEDS: Amiodarone 200 MG TAB PO SCH (08:46)
[2018-04-04] MEDS: Famotidine 20 MG TAB PO SCH (08:46)
--- NOTE | 2018-04-04 09:47 | CON ---
DATE OF CONSULTATION: 04/04/2018 The following encompassed 70 minutes time, of that time, greater than 50% was spent with the patient and/or on the patient's unit in the hospital. REASON FOR CONSULTATION: Pleural effusions. CONSULTING PHYSICIAN: Dr. Flores from the [facility]. HISTORY OF PRESENT ILLNESS: Ms. Barney is a 72-year-old female who was [facility]. She has developed bilateral pleural effusions and abdominal ascites. Symptoms started after pacemaker was placed in late February. She has tried oral diuretics at home without improvement. She is short of breath with exertion. She feels some fullness in her abdominal area. She has had a decline in her ejection fraction from 50-55% last November to 35-40% at her last checked in February. An echocardiogram from today is pending. She has also been on blood thinners with Eliqu is for treatment of a thrombus in the left atrial appendage. Dr. Martino saw her last night and we are pending an evaluation by Dr. Kasper later today. She had a CT done on 03/30/2018 which showed bilateral small effusions as well as small pericardial e ffusion, no evidence of pulmonary embolism. She had a chest x-ray done which showed an effusion, lef t greater than right. Abdominal ultrasound showed some right pleural fluid and some biliary sludge. I do not think they completely evaluated the whole abdomen with that ultrasound. PAST MEDICAL HISTORY: 1. Chronic systolic heart failure. 2. Sick sinus syndrome. 3. Left atrial appendage thrombus. 4. Hypertension. 5. Hyperlipidemia. 6. Arthritis. 7. Irritable bowel syndrome. 8. Restless leg syndrome. 9. Rheumatic fever. PAST SURGICAL HISTORY: 1. Cardiac ablation. 2. Dual-chamber pacemaker placement. FAMILY MEDICAL HISTORY: Remarkable for lung cancer, coronary artery disease. SOCIAL HISTORY: The patient drinks no alcohol, does not smoke. ALLERGIES: MORPHINE. MEDICATIONS PRIOR TO ADMISSION: Simvastatin, Mirapex, metoprolol, Eliquis and amiodarone. REVIEW OF SYSTEMS: Remarkable for the shortness of breath, abdominal swelling, otherwise 12 point re view of systems negative. PHYSICAL EXAMINATION: VITAL SIGNS: Temperature 97.7, pulse 72, respirations 17, O2 sat 96% on 3 liters, blood pressure 150 /58. HEENT: Unremarkable. NECK: Without adenopathy, JVD, or bruits. LUNGS: She has slight diminished breath sounds in the base with crackles throughout both lung puckett . CARDIAC: S1, S2 regular. Pacemaker palpable in the left upper quadrant of the chest. ABDOMEN: Soft, nontender. EXTREMITIES: No clubbing, cyanosis, or edema. LABORATORY DATA: Sodium 140, potassium 3.3, chloride 102, CO2 30, BUN 19, creatinine 1.3, glucose 92 . BNP 106. White blood cell count 7.0, hemoglobin 9.6, hematocrit 30.2, platelet count 241. I reviewed the chest x-ray and CT of the chest. ASSESSMENT: 1. Bilateral pleural effusions, likely secondary to congestive heart failure. 2. Ascites. RECOMMENDATIONS: 1. I would recommend continuing with the diuresis as you are doing and revaluate with a follow up est x-ray tomorrow. 2. Await echocardiogram. 3. Await input of EP Service. 4. Ordinarily thoracentesis would not be indicated in the scenario of congestive heart failure with small effusions like this.
[2018-04-04] MEDS ORDERED: Pramipexole Di-HCl 0.25 MG TAB PO SCH (13:15)
--- NOTE | 2018-04-04 14:21 | PDOC.PN ---
- Subjective Encounter Start Date: 04/04/18 Encounter Start Time: 14:19 Subjective: feels a little better but easily SOB w exertion -: care discussed w Son at bedside. - Objective Resuscitation Status: Resuscitation Status FULL:Full Resuscitation MAR Reviewed: Yes Vital Signs & Weight: Vital Signs (12 hours) Temp Pulse Pulse Pulse Resp BP BP 04/04/18 11:39 64 71 115/57 L 124/59 L 04/04/18 11:20 97.5 F L 60 19 04/04/18 08:00 97.7 F 72 17 04/04/18 04:00 97.6 F 61 16 BP Pulse Ox Pulse Ox Pulse Ox 04/04/18 11:39 98 97 04/04/18 11:20 99/52 L 100 04/04/18 08:00 122/58 L 96 04/04/18 04:00 116/55 L 98 Weight Weight 137 lb I&O: 04/03/18 04/04/18 04/05/18 06:59 06:59 06:59 Intake Total 360 Output Total 1750 Balance -1390 Result Diagrams: 04/04/18 04:47 04/04/18 04:47 Additional Labs: Laboratory Tests 02/18/17 02/18/17 02/18/17 12:42 12:42 16:10 Hgb Creatinine Troponin I Less than 0.010 0.011 B-Natriuretic Peptide [facility] 3rd Generation 0.9300 02/19/17 02/19/17 03/11/18 00:51 06:46 23:06 Hgb Creatinine 1.12 H Troponin I Less than 0.010 Less than 0.010 B-Natriuretic Peptide [facility] 3rd Generation 03/30/18 04/03/18 04/03/18 16:33 11:12 11:12 Hgb 11.3 L Creatinine 1.33 H Troponin I B-Natriuretic Peptide 93.7 TSH 3rd Generation 04/03/18 04/03/18 04/03/18 11:12 12:37 14:15 Hgb Creatinine 1.44 H Troponin I Less than 0.010 Less than 0.010 B-Natriuretic Peptide [facility] 3rd Generation 04/03/18 04/03/18 04/03/18 17:55 22:37 22:37 Hgb 10.5 L Creatinine 1.35 H Troponin I Less than 0.010 B-Natriuretic Peptide [facility] 3rd Generation 04/04/18 04/04/18 04/04/18 04:47 04:47 04:47 Hgb 9.6 L Creatinine 1.31 H Troponin I B-Natriuretic Peptide 106.7 H TSH 3rd Generation Radiology Reviewed by me: Yes (ECHO-EF 55%.Mod to large Pericard effusion) Phys Exam - Physical Examination Constitutional: NAD easily winded w conversation HEENT: PERRLA, moist MMs, sclera anicteric, oral pharynx no lesions Neck: no nodes, no JVD, supple, full ROM Respiratory: no wheezing, no rales, no rhonchi, clear to auscultation bilateral Cardiovascular: RRR, no significant murmur, no rub Gastrointestinal: soft, non-tender, no distention, positive bowel sounds Musculoskeletal: pulses present, edema present (mild) Neurological: non-focal, normal sensation, moves all 4 limbs Psychiatric: normal affect, A&O x 3 Dx/Plan (1) Acute respiratory failure with hypoxia Code(s): J96.01 - ACUTE RESPIRATORY FAILURE WITH HYPOXIA Status: Acute (2) Acute on chronic diastolic CHF (congestive heart failure) Code(s): I50.33 - ACUTE ON CHRONIC DIASTOLIC (CONGESTIVE) HEART FAILURE Status : Acute Comment: NYHA stage 3 (3) Pericardial effusion Code(s): I31.3 - PERICARDIAL EFFUSION (NONINFLAMMATORY) Status: Acute Comment: worsened when compared to prior ECHO. (4) LEONARD (acute kidney injury) Code(s): N17.9 - ACUTE KIDNEY FAILURE, UNSPECIFIED Status: Acute (5) RLS (restless legs syndrome) Status: Acute Comment: Continue home meds. (6) Thrombus of left atrial appendage Code(s): I51.3 - INTRACARDIAC THROMBOSIS, NOT ELSEWHERE CLASSIFIED Status: Chronic Comment: On Eliquis with plans for MAIRA mesh/watchman (7) Sick sinus syndrome Code(s): I49.5 - SICK SINUS SYNDROME Status: Acute Comment: S/P PPM placement. Site looks good. (8) Atrial fibrillation, persistent Code(s): I48.1 - PERSISTENT ATRIAL FIBRILLATION Status: Chronic Comment: On Eliquis and amiodarone. - Plan plan discussed w/ family, PT/OT, respiratory therapy, incentive spirometry, out of bed/ambulate, DVT proph w/SCDs Cont diuresis. EF better in ECHO now butw worse percd effusion. -: Plans for PPM wire revision.Dr Kasper to see.Monae on hold for Sx -: Appreciate PCCM input.No surgical Intervention for Pl effusion.cont lasix -: NSR.cont amiodarone -: OT.PT.supportive care.restart home meds.am labs * . Review of Systems - Review of Systems Constitutional: weakness, malaise. negative: fever, chills, sweats, other ENT: negative: Ear Pain, Ear Discharge, Nose Pain, Nose Discharge, Nose Congestion, Mouth Pain, Mouth Swelling, Throat Pain, Throat Swelling, Other Respiratory: SOB with Excertion. negative: Cough, Dry, Shortness of Breath, Hemoptysis, Pleuritic Pain, Sputum, Wheezing Cardiovascular: paroxysmal nocturnal dyspnea, edema. negative: chest pain, palpitations, orthopnea, light headedness, other Gastrointestinal: negative: Nausea, Vomiting, Abdominal Pain, Diarrhea, Constipation, Melena, Hematochezia, Other Genitourinary: negative: Dysuria, Frequency, Incontinence, Hematuria, Retention , Other Musculoskeletal: negative: Neck Pain, Shoulder Pain, Arm Pain, Back Pain, Hand Pain, Leg Pain, Foot Pain, Other Neurological: negative: Weakness, Numbness, Incoordination, Change in Speech, Confusion, Seizures, Other - Medications/Allergies Allergies/Adverse Reactions: Allergies Allergy/AdvReac Type Severity Reaction Status Date / Time morphine Allergy Severe VOMITING Verified 04/03/18 16:35 Medications: Current Medications Acetaminophen (Tylenol) 650 mg PO Q4H PRN PRN Reason: Headache/Fever/Mild Pain (1-3) Last Admin: 04/04/18 05:37 Dose: 650 mg Amiodarone HCl (Cordarone) 200 mg PO DAILY [facility] Last Admin: 04/04/18 08:46 Dose: 200 mg Apixaban (Eliquis) 5 mg PO BID [facility] Last Admin: 04/04/18 08:46 Dose: Not Given Benzonatate (Tessalon) 100 mg PO Q6H PRN PRN Reason: Cough Bisacodyl (Dulcolax) 10 mg PO DAILYPRN PRN PRN Reason: Constipation Bisacodyl (Dulcolax) 10 mg HI DAILYPRN PRN PRN Reason: Constipation Calcium Carbonate (Tums) 1,000 mg PO Q4H PRN PRN Reason: Heartburn or Indigestion Clonidine (Catapres) 0.1 mg PO Q4H PRN PRN Reason: SBP > 160____ Famotidine (Pepcid) 20 mg PO 0900 DB Furosemide (Lasix) 40 mg SLOW IVP 0600,1400 DB Last Admin: 04/04/18 05:35 Dose: 40 mg Guaifenesin (Robitussin Sf) 200 mg PO Q4H PRN PRN Reason: Cough Hydralazine HCl (Apresoline) 10 mg SLOW IVP Q4H PRN PRN Reason: SBP > 180 and HR < 70 Nitroglycerin (Nitrostat) 0.4 mg SL Q5MIN PRN PRN Reason: Chest Pain Ondansetron HCl (Zofran) 4 mg IVP Q6H PRN PRN Reason: Nausea/Vomiting Last Admin: 04/04/18 05:37 Dose: 4 mg Pramipexole Dihydrochloride (Mirapex) 0.5 mg PO BID DB Senna/Docusate Sodium (Senokot S) 2 tab PO BID PRN PRN Reason: Constipation Sodium Chloride (Flush - Normal Saline) 10 ml IVF Q12HR DB Sodium Chloride (Flush - Normal Saline) 10 ml IVF PRN PRN PRN Reason: Saline Flush
[2018-04-04] MEDS: Pramipexole Di-HCl 0.25 MG TAB PO SCH (20:44)
--- NOTE | 2018-04-04 23:09 | CON ---
DATE OF CONSULTATION: 04/04/2018 HISTORY OF PRESENT ILLNESS: Ms. Barney is a 72-year-old woman who has been admitted with exacerbati on of congestive heart failure. She has recently had a pacemaker placed. She has had multiple ablat ions for atrial fibrillation. She has been treated with Eliquis for atrial fibrillation and left atr ial appendage thrombus. She presented yesterday with exacerbation of her shortness of breath. She h as had an echocardiogram, which shows a circumferential pericardial effusion, which has led Dr. Kasper to consult us for pericardial window in hopes that draining her pericardial fluid will help with her congestive failure symptoms. PAST MEDICAL HISTORY: 1. Congestive heart failure -- ejection fraction on recent echo was 50%. 2. History of sick sinus syndrome, status post pacemaker placement. 3. History of atrial fibrillation/flutter with multiple ablations. 4. History of left atrial appendage thrombus on Eliquis anticoagulation -- this was held today. 5. History of irritable bowel. 6. Restless legs syndrome. 7. Aortic insufficiency. 8. Mitral regurgitation. 9. Degenerative joint disease. 10. Hypertension. PAST SURGICAL HISTORY: 1. Cardiac catheterization. 2. Atrial fibrillation ablation. 3. Pacemaker placement. SOCIAL HISTORY: She does not use alcohol or tobacco. She lives with her son. ALLERGIES: MORPHINE. HOME MEDICATIONS: Noted. PHYSICAL EXAMINATION: GENERAL: This is an elderly woman who is currently resting comfortably in bed. VITAL SIGNS: Her pacemaker is currently being interrogated. LUNGS: She has bilateral lower lung field rhonchi. Lower lung field breath sounds are diminished. HEART: Rhythm is regular with diminished heart tones. ABDOMEN: Soft. EXTREMITIES: There is bilateral lower extremity edema and anasarca. LABORATORY DATA: Most recent hemoglobin is 9.6, platelet count is 241,000. Creatinine is 1.3 with a potassium of 3.3. ASSESSMENT AND PLAN: This is a very pleasant 72-year-old lady with severe congestive heart failure, recent pacemaker placement. She is being medically treated. She has a pericardial effusion, which i s felt to be contributing to her congestive failure symptomatology. I have been asked to perform per icardial window. This has been discussed with the patient and her son and they are agreeable to proc eed tomorrow.
--- NOTE | 2018-04-04 23:41 | CON ---
DATE OF CONSULTATION: 04/04/2018 DATE OF ADMISSION: 04/03/2018 ELECTROPHYSIOLOGY CONSULTATION REFERRING PHYSICIAN: Misty Martino MD REASON FOR CONSULTATION: Systolic heart failure, dual chamber pacemaker, and atrial fibrillation. HISTORY OF PRESENT ILLNESS: Ms. Barney is a pleasant 72-year-old woman well known to our practice f or history of atrial arrhythmias, sick sinus syndrome, left atrial appendage thrombus, dual chamber p acemaker implantation. She has had a somewhat extensive cardiac history of late. She has recently been struggling with shortness of breath and some congestive heart failure symptoms prompting her to present to the emergency room for further evaluation on the . An echocardiogram has been performed since that time, which reveals an ejection fraction of 50%-55%. This has improve d since her prior echo on 03/03/2018, where her ejection fraction was 35%-40%. She was admitted for further monitoring, evaluation, and diuresing. Her shortness of breath has somewhat improved with La six administration, although she does continue to struggle with this. She denies any heart racing, p alpitations, chest pain or pressure, syncope, near syncope, stroke, or stroke-like symptoms. Her aroldo rtness of breath has been a persistent symptom of her for the past month, prompting her to go to the emergency room multiple times. It is known to us that she has had a [id number] pericardial ef fusion dated back as early as September of this year. They have been stable by exam, although echocardio gram during this hospitalization shows a progression in the size of the pericardial effusion, but the re is so far no evidence of tamponade. She is maintained on amiodarone for arrhythmia suppression es pecially with her recent redo ablation for her atrial arrhythmias. She is on Eliquis for stroke prop hylaxis. She has had a left atrial appendage ablated in the past and during her last hospitalization was found to have a left atrial appendage thrombus by RYANN. She is scheduled to have left atrial jenise endage closure with a Watchman in the near future in [place] with Dr. Liu. REVIEW OF SYSTEMS: Positive for shortness of breath, dyspnea on exertion, fatigue, abdominal bloatin g, some constipation, swelling of the extremities, and fluid on her abdomen. Negative for heart raci ng, palpitations, chest pain or pressure, syncope, near syncope, stroke, or stroke-like symptoms. PAST MEDICAL HISTORY: 1. Paroxysmal atrial fibrillation, status post PVI on 01/20/2017 with early recurrence of atypical f lutter, prompting ER visit in February 2017 and redo ablation on 12/01/2017, which also included iso lation of the left atrial appendage with early recurrence requiring amiodarone for suppression. 2. Medtronic LINQ implantable loop recorder placed 12/01/2017, which has since then explanted in 2017. 3. Eliquis for anticoagulation for elevated CHADS-VASc score of 3 and also life-long anticoagulation required with her left atrial appendage isolation. 4. Preserved or normal ejection fraction at 50%-55%, though recently reduced at 35%-40% on 8. 5. Coronary artery disease. Risk factors include hypertension and hyperlipidemia. 6. Sick sinus syndrome with pauses up to 9 seconds that were captured on LINQ loop recorder promptin g dual chamber pacemaker implantation on 03/03/2018. 7. Left atrial appendage thrombus diagnosed by RYANN on 03/06/2018, currently on oral anticoagulation. 8. Irritable bowel syndrome. 9. Restless leg syndrome. 10. Aortic insufficiency. 11. Degenerative joint disease. 12. Hypertension. ALLERGIES: Include MORPHINE. SOCIAL HISTORY: Resides with her son and family. Negative for alcohol, drug, or tobacco use. FAMILY HISTORY: Negative for sudden cardiac or early onset coronary artery disease. HOME MEDICATIONS: Simvastatin 20 mg p.o. at bedtime, Eliquis 5 mg p.o. b.i.d., Mirapex 0.5 mg b.i.d. , metoprolol succinate 25 mg daily, mg q.12 hours, amiodarone 200 mg daily, and Lasix as needed for shortness of breath 20 mg. OBJECTIVE: VITAL SIGNS: Recent vital signs include 97.5 degrees Fahrenheit, pulse 65, blood pressure 119/57, re spirations 16, oxygen 97% on room air. GENERAL: Ms. Barney is alert and oriented. She is well groomed and well nourished. Her speech is clear. Affect is appropriate. HEENT: Normocephalic, atraumatic. Her sclerae are anicteric. Her oral mucosa is moist and pink. S he has adequate dentition. NECK: Supple without jugular venous distention. Her thyroid is nonpalpable. CARDIOVASCULAR: Heart rate is regularly regular. PMI is nondisplaced. EXTREMITIES: Warm and dry to touch without clubbing or cyanosis. Positive for 1+ bilateral lower ex tremity edema. PULMONARY: Respirations are even and unlabored bilaterally with some fine bibasilar crackles heard o n auscultation. GASTROINTESTINAL: Soft, nontender, obese without palpable masses. Hepatojugular reflux is negative. NEUROLOGIC: Cranial nerves II-XII is grossly intact and nonfocal. DATABASE: Laboratory: Potassium 3.3, BUN is 19, creatinine 1.31. ALT and AST are within normal aparicio its. Serial troponins were negative. BNP is 106.7. Lipase is 53. Hematology: Hemoglobin 9.6, hem atocrit 30.2, platelet count is 241, WBC is 7. Telemetry and EKG were personally reviewed and reflect sequential AV pacing and normal sinus rhythm. No atrial fibrillation or atrial flutter episodes detected. Echocardiogram on 04/04/2018: EF 50%-5 5%, mild left atrial dilation, mildly enlarged right atrium, severe mitral regurgitation. Chest x-ra y on 04/03/2018: Cardiomegaly, moderate edema and layering effusions, no pneumothorax. IMPRESSION: 1. Chronic systolic and congestive heart failure with mild fluid overload requiring diuresing with p reviously an ejection fraction at 35%-40% in February of this year, now recovered to 50%-55% by echo cardiogram in this hospitalization. 2. Persistent atrial arrhythmias with 2 prior ablations, now requiring amiodarone for arrhythmia sup pression, currently in sinus rhythm. 3. Sick sinus syndrome, status post dual chamber pacemaker implantation with high-grade RV pacing in the past. 4. Left atrial appendage isolation with documented thrombus by RYANN in 02/2018, currently on anticoag ulation. 5. CHADS-VASc score of 3 based on female gender, advancing age, and hypertension. Currently on Eliq uis for stroke prophylaxis, to be continued lifelong unless left atrial appendage closure was perform ed, which is scheduled next month. 6. Moderate pericardial effusion seen on echocardiogram and known since September of this year, but now progressive. [id number]-qa-evmua circumferential pericardial effusion. Currently, no evidence of tamp onade, though very possible given the presentation. 7. Severe mitral regurgitation by echocardiogram this hospitalization. RECOMMENDATIONS: 1. Continue her diuresing for congestive heart failure and fluid management. 2. Continue amiodarone and Eliquis. She is currently maintaining sinus rhythm and amiodarone is low dose and effective at suppressing her atrial fibrillation. Oral anticoagulation will need to be con tinued with her left atrial appendage closure and thrombus that is present in her left atrial appenda ge. 3. Cardiovascular Surgery consult for her advancing pericardial effusion for consideration of perica rdial window and drainage. 4. Interrogation of her dual chamber pacemaker. There was discussion previously with her substantia lly reduced ejection fraction and high-grade RV pacing that upgrade to biventricular pacemaker may be indicated. However, at this time, her ejection fraction has substantially improved by this echocard iogram and she does not have any clinical indication for upgrade to ESTIMATOR LUMBER pacing at this time. I have personally spoken to both Dr. Martino and Dr. Cervantes regarding the care of this patient and plan m oving forward. We will continue to follow. Thank you for allowing us to participate in the care of this patient.
[2018-04-05 05:19] LABS: #Eosinphils 0.3 thou/uL (0.0-0.7); #Lymphocytes 1.2 thou/uL (1.20-3.40); #Monocytes 0.8 thou/uL (0.11-0.59); %Basophils 0.5 % (0.0-1.0); %Eosinophils 4.4 % (0.0-10.0); %Lymphocytes 16.4 % (21.0-51.0); %Monocytes 10.4 % (0.0-10.0); %Neutrophils 68.3 % (42.0-75.0); Hemoglobin 9.8 g/dL (12.0-16.0); Mean Corpuscular HGB CONC 31.9 g/dL (32.0-36.0); Mean Corpuscular Hemoglobin 29.9 pg (27.0-31.0); Mean Corpuscular Volume 93.9 fL (78.0-98.0); Mean Platelet Volume 7.2 fL (7.4-10.4); Platelet Count 247 thou/uL (130-400); RBC Distribution Width 15.3 % (11.5-14.5); Red Blood Cell (RBC) Count 3.29 mill/uL (4.20-5.40); White Blood Cell (WBC) Count 7.2 thou/uL (4.8-10.8)
[2018-04-05] MEDS: Furosemide 40 MG/4 ML VIAL SLOW IVP SCH ×2 (05:28→14:58)
[2018-04-05 05:29] LABS: Anion Gap 10 mmol/L (10-20); BUN (Urea Nitrogen) 19 mg/dL (9.8-20.1); Calc. Creatinine Clearance 37 mL/min (70-130); Calcium 9.3 mg/dL (7.8-10.44); Carbon Dioxide 32 mmol/L (23-31); Chloride 100 mmol/L (98-107); Estimated GFR-MDRD 38; Glucose 93 mg/dL (83-110); Potassium 3.4 mmol/L (3.5-5.1); Sodium 139 mmol/L (136-145)
[2018-04-05] MEDS ORDERED: CEFAZOLIN/Water 2 GM/20 ML SYRINGE ONE (07:53)
[2018-04-05] MEDS ORDERED: Bupivacaine HCl 0.5%/Epinephrine 1:200,000/PF 30 ml Vial ONE (08:36)
--- NOTE | 2018-04-05 08:56 | RAD ---
CHEST ONE VIEW: History: 72-year-old female with history of respiratory insuffiency. Comparison: 04-03-18 FINDINGS: Monitor leads overlie the chest. Left ICD. Prominent cardiomegaly with bilateral vascular congestion and interstitial edema and pleural effusion, larger on the left side but showing slight improvement i n the amount of interstitial edema when compared to the 04-03-18 study. IMPRESSION: Slightly improving congestive heart failure, interstitial edema, and pleural effusions. Continued aroldo rt term follow up for complete clearing. POS: TPC
[2018-04-05] MEDS ORDERED: SUGAMMADEX SODIUM 200 MG/2 ML VIAL ONE (09:17)
[2018-04-05] MEDS ORDERED: Fentanyl 100 MCG/2 ML VIAL SLOW IVP PRN (09:40)
[2018-04-05] MEDS ORDERED: traMADol HCl 50 MG TAB PO PRN ×2 (09:40→14:24)
[2018-04-05] MEDS ORDERED: Ondansetron HCl/PF 4 MG/2 ML Vial IVP PRN (09:41)
[2018-04-05] MEDS ORDERED: Promethazine HCl 25 MG/ML VIAL IM PRN (09:41)
[2018-04-05] MEDS ORDERED: Promethazine HCl 25 MG/ML VIAL SLOW IVP PRN (09:41)
[2018-04-05] MEDS ORDERED: HYDROmorphone 2 MG/ML VIAL SLOW IVP PRN (09:41)
[2018-04-05] MEDS ORDERED: Fentanyl 100 MCG/2 ML VIAL ONE (09:42)
[2018-04-05] MEDS ORDERED: CEFAZOLIN/Water 2 GM/20 ML SYRINGE SLOW IVP SCH (11:00)
--- NOTE | 2018-04-05 12:01 | PRG ---
DATE OF SERVICE: 04/05/2018 SUBJECTIVE: Ms. Barney is just back from the OR where she had a pericardial window performed. A 20 0 mL of pericardial fluid was evacuated. She is very sore at the current time. PHYSICAL EXAMINATION: VITAL SIGNS: Temperature 97.6, pulse 65, respirations 14, O2 sat 98%, blood pressure 136/63. HEENT: Unremarkable. NECK: No JVD. LUNGS: Clear. CARDIAC: S1 and S2 regular. ABDOMEN: Soft. EXTREMITIES: No edema. X-RAY FINDINGS: Her chest x-ray, pleural fluid looks better than yesterday. LABORATORY DATA: White blood cell count 7.2, hematocrit 30.9, platelet count 247. Sodium 139, potas sium 3.4, chloride 100, CO2 32, BUN 19, creatinine 1.4, glucose 93. ASSESSMENT: 1. Status post evacuation of a large pericardial effusion. 2. Bilateral pleural effusions, which are small. PLAN: We will see how she does, now that her pericardial fluid was evacuated. Hopefully, this will result in improvement of whatever pleural effusions remain.
[2018-04-05] MEDS: Pramipexole Di-HCl 0.25 MG TAB PO SCH ×3 (12:06→21:45)
[2018-04-05] MEDS: Famotidine 20 MG TAB PO SCH (12:06)
[2018-04-05] MEDS: Amiodarone 200 MG TAB PO SCH (12:06)
--- NOTE | 2018-04-05 13:04 | OP ---
DATE OF PROCEDURE: 04/05/2018 PREOPERATIVE DIAGNOSES: Pericardial effusion in a patient with congestive heart failure and severely depressed left ventricular ejection fraction. POSTOPERATIVE DIAGNOSES: Pericardial effusion in a patient with congestive heart failure and severel y depressed left ventricular ejection fraction. PROCEDURE: Pericardial window. SURGEON: Alon Cervantes M.D. ANESTHESIA: General endotracheal. ESTIMATED BLOOD LOSS: Minimal. DRAINS: A 19 Syriac Jose. FINDINGS: 200 mL of clear fluid. PROCEDURE IN DETAIL: After consent was obtained, the patient was brought to operating room and place d supine on the operating room table. Appropriate anesthetic monitor was placed and general endotrac heal anesthesia induced. The chest was prepped and draped in usual sterile fashion. Skin incision w as made over the xiphoid. Xiphoid was resected. The pericardium was exposed and sharply incised. O nce the pericardium was entered 200 mL total of clear fluid was evacuated. A 19-Syriac drain was tor alejandro into the pericardial well. A drain was brought to the skin and placed to bulb suction. Wounds w ere then closed in layers and Dermabond applied to the skin. The patient was awakened, extubated, an d transferred to the recovery room in stable condition. Needle, sponge, and instrument counts were a ll reported correct at the end of the procedure.
[2018-04-05] MEDS: Diabetic Tussin 200 MG/10 ML UDCUP PO PRN (13:32)
--- NOTE | 2018-04-05 13:49 | EKG ---
Test Reason : SOB Blood Pressure : / mmHG Vent. Rate : 147 BPM Atrial Rate : 075 BPM P-R Int : 000 ms QRS Dur : 042 ms QT Int : 200 ms P-R-T Axes : 104 236 267 degrees QTc Int : 313 ms Ventricular-paced rhythm Abnormal ECG Confirmed by JAGDISH COLLINS, YOLANDA ([id number]), proposal editor VELMA CONTRERAS ([id number]) on 04/05/2018 1:48:55 PM Referred By: Confirmed By:YOLANDA DUBON MD
[2018-04-05] MEDS ORDERED: Lidocaine 1% PF 5 ML VIAL ONE (14:26)
[2018-04-05] MEDS ORDERED: Ondansetron PF 4 MG/2 ML Vial ONE (14:26)
[2018-04-05] MEDS ORDERED: PROPOFOL 200 MG/20 ML VIAL ONE (14:26)
[2018-04-05] MEDS ORDERED: Glycopyrrolate 0.2 MG/ML 5 ML SYRINGE ONE (14:26)
[2018-04-05] MEDS: Fentanyl 100 MCG/2 ML VIAL SLOW IVP PRN ×2 (14:56→20:32)
[2018-04-05] MEDS: CEFAZOLIN 1 GM in Sodium Chloride 0.9% 100 ML IVPB SCH (16:13)
[2018-04-05] MEDS ORDERED: Potassium Chloride 20 MEQ TAB PO SCH (17:00)
--- NOTE | 2018-04-05 20:03 | PRG ---
DATE OF SERVICE: 04/05/2018 ELECTROPHYSIOLOGY FOLLOWUP NOTE SUBJECTIVE: Ms. Barney is after her pericardial window placement procedure. She had 200 mL of clear fluid evacuated and a 9 [address] drain is in place. Still she has significant discomfort in the area concerning pericardial discomfort. Vital signs remained stable afterwards. She has no PND, orthopnea , palpitations still at the base. OBJECTIVE DATA: VITAL SIGNS: Blood pressure is 105/53, heart rate 60, respiratory rate , temperature is 98.1 degrees Fahrenheit. GENERAL: Alert and oriented woman with moderate distress with the pericardial discomfort, chest tightness is noted. CHEST: Coarse, no crackles. CARDIOVASCULAR: Heart sounds are regular rate and rhythm. I do not hear murmur or gallop. ABDOMEN: Benign. Bowel sounds positive. Left precordial pacing site is well healed. EXTREMITIES: Lower extremities without edema, clubbing or cyanosis. LABORATORY DATA: White count 7.3, hemoglobin 9.8, platelet count is 247. Sodium 139, potassium 3.4, BUN is 19, creatinine is 1.38. IMAGING DATA: Chest x-ray from 04/05/2018 shows improving congestive heart failure signs and pleural effusions. Telemetry strips reveal atrial and ventricular paced rhythm. Interrogation of the pacemaker reveals low amplitude P waves and high grade AV block, otherwise adequately functioning dual chamber Medtronic pacemaker. Lead impedance is normal at 589 and 608 ohms. ASSESSMENT AND PLAN: Ms. Barney is a pleasant 72-year-old woman with prior history of atrial arrhythmias, prior left atrial ablation procedure in September with recurrence requiring eventually amiodarone for suppression. Currently, maintaining sinus rhythm, though hence pausing she had a pacemaker placed last month. She had worsening of her pericardial effusion which was eventually dictated today by Dr. Cervantes. At this point, an effusion seems to be serous not likely related to pacemaker placement or even the ablation that far back. Possible chronic pericarditis process may be in place. PLAN: My plan would be at this point: 1. Continue supportive measures, resume. 2. Consider colchicine versus nonsteroidals if significant pericarditis is suspected still. 3. Continue amiodarone short term and a redo pulmonary venous isolation as planned in April. 4. Plan for appendage closure in the future. 5. Resume Eliquis tomorrow if agreed by Dr. Cervantes. [facility] FACILITYAspen
--- NOTE | 2018-04-05 22:18 | PDOC.PN ---
- Subjective Encounter Start Date: 04/05/18 Encounter Start Time: 10:00 Patient seen and examined for SOB. s/p Pericardial window. No new complaints. No overnight events - Objective Resuscitation Status: Resuscitation Status FULL:Full Resuscitation MAR Reviewed: Yes Vital Signs & Weight: Vital Signs (12 hours) Temp Pulse Resp BP Pulse Ox 04/05/18 15:50 98.1 F 60 12 105/53 L 98 04/05/18 12:00 97.4 F L 60 12 103/51 L 100 Weight Weight 133 lb 3.2 oz I&O: 04/04/18 04/05/18 04/06/18 06:59 06:59 06:59 Intake Total 360 560 Output Total 1750 800 375 Balance -3460 -240 -906 Result Diagrams: 04/05/18 22:17 04/05/18 22:17 EKG Reviewed by me: Yes (Tele paced) Phys Exam - Physical Examination Constitutional: NAD Respiratory: no wheezing, no rhonchi Cardiovascular: RRR, no rub Gastrointestinal: soft, non-tender, positive bowel sounds Neurological: moves all 4 limbs Dx/Plan - Plan DVT proph w/SCDs IMPRESSION: 1. Acute on chronic systolic CHF exacerbation/ Pericardial effusion s/p Pericardial window 2. Afib with LA thrombus on anticaog 3. HTN 4. SSS s/p PM 5. Hypokalemia/ CKD 3/ Other issues per previous notes PLAN: Eliquis on hold Cont Amidoarone Cont diuresis - Change Lasix to daily Pain control Replace Potassium No on ACEI/ARB due to CKD Not on BB due to low BP Laboratory Tests 04/05/18 04:48 Magnesium 2.1 Review of Systems - Review of Systems Constitutional: negative: fever, chills, sweats, weakness, malaise, other Gastrointestinal: negative: Nausea, Vomiting, Abdominal Pain, Diarrhea, Constipation, Melena, Hematochezia, Other - Medications/Allergies Allergies/Adverse Reactions: Allergies Allergy/AdvReac Type Severity Reaction Status Date / Time morphine Allergy Severe VOMITING Verified 04/03/18 16:35 Medications: Current Medications Acetaminophen (Tylenol) 650 mg PO Q4H PRN PRN Reason: Headache/Fever/Mild Pain (1-3) Last Admin: 04/04/18 05:37 Dose: 650 mg Amiodarone HCl (Cordarone) 200 mg PO DAILY DB Last Admin: 04/05/18 12:06 Dose: 200 mg Apixaban (Eliquis) 5 mg PO BID [facility] Last Admin: 04/04/18 08:46 Dose: Not Given Benzonatate (Tessalon) 100 mg PO Q6H PRN PRN Reason: Cough Bisacodyl (Dulcolax) 10 mg PO DAILYPRN PRN PRN Reason: Constipation Bisacodyl (Dulcolax) 10 mg OR DAILYPRN PRN PRN Reason: Constipation Calcium Carbonate (Tums) 1,000 mg PO Q4H PRN PRN Reason: Heartburn or Indigestion Clonidine (Catapres) 0.1 mg PO Q4H PRN PRN Reason: SBP > 160____ Famotidine (Pepcid) 20 mg PO 0900 [facility] Last Admin: 04/05/18 12:06 Dose: 20 mg Fentanyl (Sublimaze) 12.5 mcg SLOW IVP Q4H PRN PRN Reason: Severe Pain (7-10) Last Admin: 04/05/18 20:32 Dose: 12.5 mcg Furosemide (Lasix) 40 mg SLOW IVP 0600,1400 [facility] Last Admin: 04/05/18 14:58 Dose: Not Given Guaifenesin (Robitussin Sf) 200 mg PO Q4H PRN PRN Reason: Cough Last Admin: 04/05/18 13:32 Dose: 200 mg Hydralazine HCl (Apresoline) 10 mg SLOW IVP Q4H PRN PRN Reason: SBP > 180 and HR < 70 Cefazolin Sodium 1 gm/ Sodium (Chloride) 100 mls @ 200 mls/hr IVPB Q8H [facility] Stop: 04/06/18 08:29 Last Admin: 04/05/18 16:13 Dose: 100 mls Nitroglycerin (Nitrostat) 0.4 mg SL Q5MIN PRN PRN Reason: Chest Pain Ondansetron HCl (Zofran) 4 mg IVP Q6H PRN PRN Reason: Nausea/Vomiting Last Admin: 04/04/18 05:37 Dose: 4 mg Pramipexole Dihydrochloride (Mirapex) 0.5 mg PO BID [facility] Last Admin: 04/05/18 20:34 Dose: 0.25 mg Senna/Docusate Sodium (Senokot S) 2 tab PO BID PRN PRN Reason: Constipation Sodium Chloride (Flush - Normal Saline) 10 ml IVF Q12HR DB Last Admin: 04/05/18 20:34 Dose: 10 ml Sodium Chloride (Flush - Normal Saline) 10 ml IVF PRN PRN PRN Reason: Saline Flush Tramadol HCl (Ultram) 50 mg PO Q4H PRN PRN Reason: Moderate Pain (4-6) Tramadol HCl (Ultram) 100 mg PO Q6H PRN PRN Reason: Pain Last Admin: 04/05/18 18:38 Dose: 100 mg
[2018-04-05 22:22] LABS: Hemoglobin 10.9 g/dL (12.0-16.0); Platelet Count 237 thou/uL (130-400)
[2018-04-06] MEDS: CEFAZOLIN 1 GM in Sodium Chloride 0.9% 100 ML IVPB SCH ×2 (00:36→08:38)
[2018-04-06] MEDS: Fentanyl 100 MCG/2 ML VIAL SLOW IVP PRN (01:12)
[2018-04-06 05:21] LABS: Hemoglobin 10.4 g/dL (12.0-16.0); Platelet Count 249 thou/uL (130-400)
[2018-04-06 05:32] LABS: Anion Gap 18 mmol/L (10-20); BUN (Urea Nitrogen) 26 mg/dL (9.8-20.1); Calc. Creatinine Clearance 34 mL/min (70-130); Carbon Dioxide 24 mmol/L (23-31); Chloride 102 mmol/L (98-107); Estimated GFR-MDRD 36; Glucose 128 mg/dL (83-110); Potassium 3.9 mmol/L (3.5-5.1); Sodium 140 mmol/L (136-145)
[2018-04-06] MEDS: Pramipexole Di-HCl 0.25 MG TAB PO SCH ×2 (08:37→21:10)
[2018-04-06] MEDS: Amiodarone 200 MG TAB PO SCH (08:37)
[2018-04-06] MEDS: Famotidine 20 MG TAB PO SCH (08:37)
--- NOTE | 2018-04-06 08:45 | PRG ---
DATE OF SERVICE: 04/06/2018 SUBJECTIVE: She feels better today compared to yesterday. PHYSICAL EXAMINATION: VITAL SIGNS: Temperature is 97.8, pulse 60, respirations 14, O2 sat 93% on 2 liters, blood pressure 112/55. A 24-hour intake approximately 120, output 660 including 310 from the pericardial tube. HEENT: Unremarkable. NECK: No JVD. CHEST: She has some bruising over the upper sternum. Breath sounds are slightly diminished at both bases. CARDIAC: S1 and S2 regular. ABDOMEN: Soft. EXTREMITIES: No edema. LABORATORY DATA: Sodium 140, potassium 3.9, BUN 26, creatinine 1.5, glucose 128. Hemoglobin 10.4, h ematocrit 33.3, platelet count 249. ASSESSMENT: 1. Pericardial and pleural effusions. 2. Status post evacuation of large pericardial effusion. PLAN: 1. I will recheck an x-ray tomorrow and see how her pleural effusions are doing since the pericardia l effusion has now been relieved. 2. Following with you.
[2018-04-06] MEDS ORDERED: Furosemide 40 MG/4 ML VIAL SLOW IVP SCH (09:00)
[2018-04-06] MEDS: Apixaban 5 MG TAB PO SCH ×2 (09:20→21:10)
--- NOTE | 2018-04-06 09:33 | PRG ---
DATE OF SERVICE: 04/06/2018 SUBJECTIVE: Ms. Barney seems to be doing better today. Chest pain discomforts are improving. OBJECTIVE: VITAL SIGNS: Blood pressure is 112/55, heart rate 60, respirations 14, temperature 97.8 degrees Fahr enheit. GENERAL: She is alert and oriented woman in no apparent distress. NECK: Supple. Jugular veins minimally distended only, improved from yesterday. CHEST: Chest with basal crackles. CARDIOVASCULAR: Heart sounds are regular to rate and rhythm. No murmur or gallop. Pacemaker site i s well healed. ABDOMEN: Benign. Bowel sounds positive. EXTREMITIES: Lower extremity without edema, clubbing or cyanosis. LABORATORY DATA: The hemoglobin is 10.4 today. Electrolytes with BUN 26, creatinine 1.45. Electrol ytes are normal. BNP is 106 on 04/04/2018, 93 on 04/03/2018. ASSESSMENT AND PLAN: 1. Ms. Barney is a pleasant 72-year-old woman with history of atrial arrhythmias, prior ablation wi th recurrence, eventually requiring amiodarone for suppression. She had pauses even before initiatin g amiodarone and a dual chamber pacemaker was implanted last month. She has chronic pericardial effu violette which appeared to be more prominent on this admission, thought to contribute to the admitting di agnosis of diastolic heart failure. She underwent a pericardial window placement with drain still in place from yesterday. She seems to be doing better today. She continues a negative fluid balance. Renal function shows some prerenal state, monitor this. Slight improved renal function, though toda y. I would anticipating removal of the chest tube today as per Dr. Cervantes: 2. History of atrial fibrillation with left appendage isolation as well as left atrial appendage tamar t on prior RYANN last month. The patient will need to go back on anticoagulation long-term, Watchman p rocedure or possibly reablation is planned. 3. Chronic amiodarone use. Monitor her pulmonary function. At this point the only medication to ef fectively suppress her atrial arrhythmias. 4. Pacemaker with adequate function. Recheck this admission.
--- NOTE | 2018-04-06 15:54 | PDOC.PN ---
- Subjective Encounter Start Date: 04/06/18 Encounter Start Time: 08:30 Patient seen and examined for CHF. Pain controlled. No new complaints. No overnight events - Objective Resuscitation Status: Resuscitation Status FULL:Full Resuscitation MAR Reviewed: Yes Vital Signs & Weight: Vital Signs (12 hours) Temp Pulse Pulse Pulse Resp BP BP 04/06/18 15:35 97.7 F 60 13 04/06/18 12:00 97.7 F 60 15 04/06/18 11:31 62 60 124/58 L 114/57 L 04/06/18 08:00 04/06/18 07:29 97.8 F 60 14 04/06/18 04:00 98.7 F 60 16 BP Pulse Ox Pulse Ox Pulse Ox 04/06/18 15:35 104/52 L 94 L 04/06/18 12:00 108/57 L 94 L 04/06/18 11:31 95 96 04/06/18 08:00 93 L 04/06/18 07:29 112/55 L 93 L 04/06/18 04:00 111/55 L 94 L Weight Weight 134 lb 12.8 oz I&O: 04/05/18 04/06/18 04/07/18 06:59 06:59 06:59 Intake Total 560 120 Output Total 800 660 Balance -240 -540 Result Diagrams: 04/06/18 04:54 04/06/18 04:54 EKG Reviewed by me: Yes (Tele paced) Phys Exam - Physical Examination Constitutional: NAD Respiratory: no wheezing, no rhonchi Cardiovascular: RRR, no rub Gastrointestinal: soft, positive bowel sounds Musculoskeletal: no edema Neurological: moves all 4 limbs Dx/Plan - Plan DVT proph w/SCDs IMPRESSION: 1. Acute on chronic systolic CHF exacerbation/ Pericardial effusion s/p Pericardial window 2. Afib with LA thrombus on anticoag 3. HTN 4. SSS s/p PM 5. Hypokalemia/ CKD 3/ Other issues per previous notes PLAN: Eliquis restarted Wean O2 Hold diuretics Cont Amidoarone No on ACEI/ARB due to CKD Not on BB due to low BP AM labs Review of Systems - Review of Systems Respiratory: negative: Cough, Dry, Shortness of Breath, Hemoptysis, SOB with Excertion, Pleuritic Pain, Sputum, Wheezing Cardiovascular: negative: chest pain, palpitations, orthopnea, paroxysmal nocturnal dyspnea, edema, light headedness, other - Medications/Allergies Allergies/Adverse Reactions: Allergies Allergy/AdvReac Type Severity Reaction Status Date / Time morphine Allergy Severe VOMITING Verified 04/03/18 16:35 Medications: Current Medications Acetaminophen (Tylenol) 650 mg PO Q4H PRN PRN Reason: Headache/Fever/Mild Pain (1-3) Last Admin: 04/04/18 05:37 Dose: 650 mg Amiodarone HCl (Cordarone) 200 mg PO DAILY [facility] Last Admin: 04/06/18 08:37 Dose: 200 mg Apixaban (Eliquis) 5 mg PO BID [facility] Last Admin: 04/06/18 09:20 Dose: 5 mg Benzonatate (Tessalon) 100 mg PO Q6H PRN PRN Reason: Cough Bisacodyl (Dulcolax) 10 mg PO DAILYPRN PRN PRN Reason: Constipation Bisacodyl (Dulcolax) 10 mg [place] DAILYPRN PRN PRN Reason: Constipation Calcium Carbonate (Tums) 1,000 mg PO Q4H PRN PRN Reason: Heartburn or Indigestion Clonidine (Catapres) 0.1 mg PO Q4H PRN PRN Reason: SBP > 160____ Famotidine (Pepcid) 20 mg PO 0900 [facility] Last Admin: 04/06/18 08:37 Dose: 20 mg Fentanyl (Sublimaze) 12.5 mcg SLOW IVP Q4H PRN PRN Reason: Severe Pain (7-10) Last Admin: 04/06/18 01:12 Dose: 12.5 mcg Guaifenesin (Robitussin Sf) 200 mg PO Q4H PRN PRN Reason: Cough Last Admin: 04/05/18 13:32 Dose: 200 mg Hydralazine HCl (Apresoline) 10 mg SLOW IVP Q4H PRN PRN Reason: SBP > 180 and HR < 70 Nitroglycerin (Nitrostat) 0.4 mg SL Q5MIN PRN PRN Reason: Chest Pain Ondansetron HCl (Zofran) 4 mg IVP Q6H PRN PRN Reason: Nausea/Vomiting Last Admin: 04/04/18 05:37 Dose: 4 mg Pramipexole Dihydrochloride (Mirapex) 0.5 mg PO BID [facility] Last Admin: 04/06/18 08:37 Dose: 0.5 mg Senna/Docusate Sodium (Senokot S) 2 tab PO BID PRN PRN Reason: Constipation Sodium Chloride (Flush - Normal Saline) 10 ml IVF Q12HR [facility] Last Admin: 04/06/18 08:39 Dose: 10 ml Sodium Chloride (Flush - Normal Saline) 10 ml IVF PRN PRN PRN Reason: Saline Flush Tramadol HCl (Ultram) 50 mg PO Q4H PRN PRN Reason: Moderate Pain (4-6) Tramadol HCl (Ultram) 100 mg PO Q6H PRN PRN Reason: Pain Last Admin: 04/05/18 18:38 Dose: 100 mg
[2018-04-07 05:09] LABS: Hemoglobin 10.2 g/dL (12.0-16.0); Platelet Count 232 thou/uL (130-400)
[2018-04-07 05:23] LABS: Anion Gap 10 mmol/L (10-20); BUN (Urea Nitrogen) 25 mg/dL (9.8-20.1); Calc. Creatinine Clearance 40 mL/min (70-130); Calcium 8.8 mg/dL (7.8-10.44); Carbon Dioxide 29 mmol/L (23-31); Chloride 99 mmol/L (98-107); Estimated GFR-MDRD 43; Glucose 101 mg/dL (83-110); Potassium 3.7 mmol/L (3.5-5.1); Sodium 134 mmol/L (136-145)
--- NOTE | 2018-04-07 08:51 | PRG ---
DATE OF SERVICE: 04/07/2018 SUBJECTIVE: The patient is doing reasonably well. She still has a pericardial drain in place. She says she is short of breath with severe exertion. PHYSICAL EXAMINATION: VITAL SIGNS: Temperature is 97.6, pulse 60, respiration 20, O2 sat 93%, blood pressure 120/58. HEENT: Unremarkable. NECK: No JVD. LUNGS: Fairly clear bilaterally. CARDIAC: S1 and S2 regular. She has some serosanguineous fluid coming out of her pericardial drain. ABDOMEN: Soft. EXTREMITIES: No edema. Her chest x-ray shows improvement in the bilateral pleural effusions compared to before. LABORATORY DATA: Hematocrit 32.5, platelet count 232. Sodium 134, potassium 3.7, chloride 99, CO2 2 9, BUN 25, creatinine 1.2, glucose 101. ASSESSMENT: 1. Congestive heart failure. 2. Pericardial effusion. 3. Chronically anticoagulated. 4. Pleural effusions. PLAN: If okay with Cardiology I would suggest continuing to diurese the patient. I think she is sti ll somewhat wet. Pulmonary will continue to follow.
--- NOTE | 2018-04-07 09:14 | RAD ---
PORTABLE AP CHEST XRAY: DATE: 04/07/2018. HISTORY: Shortness of breath. COMPARISON: 04/05/2018. FINDINGS: Dual-lead left subclavian cardiac pacemaking device remains in place. Cardiac silhouette is enlarged . Pleural and parenchymal changes are again seen at the left lung base likely related to left pleura l effusion and atelectasis. There has been interval development of patchy parenchymal opacity in the right lung bas as well as interstitial and parenchymal opacity in the left mid lung zone. These fin dings may be related to either asymmetric pulmonary edema or developing infectious process. Vascular calcifications are seen in the thoracic aorta. No other interval change. IMPRESSION: Persistent pleural and parenchymal changes of the left lung base which may be related to left pleural effusion and atelectasis. However, there has been interval development of increased interstitial an d patchy opacities at the right lung base and in the perihilar regions bilaterally, which may be rela dea to infectious process or asymmetric pulmonary edema. POS: ALBERT
[2018-04-07] MEDS: Apixaban 5 MG TAB PO SCH ×2 (09:20→21:23)
[2018-04-07] MEDS: Acetaminophen 325 MG TAB PO PRN (09:20)
[2018-04-07] MEDS: Pramipexole Di-HCl 0.25 MG TAB PO SCH ×2 (09:21→21:23)
[2018-04-07] MEDS: Bisacodyl 10 MG SUPP PR PRN (09:21)
[2018-04-07] MEDS: Famotidine 20 MG TAB PO SCH (09:21)
[2018-04-07] MEDS: Amiodarone 200 MG TAB PO SCH (09:21)
[2018-04-07] MEDS: Bisacodyl 5 MG TAB PO PRN (09:22)
[2018-04-07] MEDS ORDERED: Furosemide 40 MG/4 ML VIAL SLOW IVP SCH ×2 (11:00)
[2018-04-07] MEDS: Diabetic Tussin 200 MG/10 ML UDCUP PO PRN (14:32)
[2018-04-07] MEDS ORDERED: Clopidogrel Bisulfate 75 MG TAB ONE (21:14)
[2018-04-07] MEDS: Rosuvastatin 5 MG TAB PO SCH (21:23)
--- NOTE | 2018-04-07 22:38 | PDOC.PN ---
- Subjective Encounter Start Date: 04/07/18 Encounter Start Time: 12:00 Patient seen and examined for CHF. Feels better. Pain better. No new complaints. No overnight events - Objective Resuscitation Status: Resuscitation Status FULL:Full Resuscitation MAR Reviewed: Yes Vital Signs & Weight: Vital Signs (12 hours) Temp Pulse Pulse Pulse Resp BP BP 04/07/18 19:30 98.1 F 60 16 04/07/18 18:19 22 H 04/07/18 14:36 96.9 F L 60 18 04/07/18 12:15 71 61 141/63 H 110/53 L 04/07/18 12:12 98.0 F 61 16 BP Pulse Ox Pulse Ox Pulse Ox 04/07/18 19:30 108/57 L 98 04/07/18 18:19 87 L 04/07/18 14:36 121/59 L 97 04/07/18 12:15 94 L 98 04/07/18 12:12 118/58 L 97 Weight Weight 132 lb 14.4 oz I&O: 04/06/18 04/07/18 04/08/18 06:59 06:59 06:59 Intake Total 120 270 988 Output Total 215 483 9029 Balance -540 -355 -342 Result Diagrams: 04/07/18 04:53 04/07/18 04:53 EKG Reviewed by me: Yes (Tele paced) Phys Exam - Physical Examination Constitutional: NAD Respiratory: no wheezing, no rhonchi Cardiovascular: RRR, no rub Gastrointestinal: soft, non-tender, positive bowel sounds Musculoskeletal: no edema Neurological: moves all 4 limbs Dx/Plan - Plan DVT proph w/SCDs IMPRESSION: 1. Acute on chronic systolic CHF exacerbation/ Pericardial effusion s/p Pericardial window 2. Afib with LA thrombus on anticoag 3. HTN 4. SSS s/p PM 5. Hypokalemia/LEONARD on CKD 3 - improving/ Other issues per previous notes PLAN: Wean O2 Cont diuretics Cont Amidoarone and other meds as below No on ACEI/ARB due to CKD Not on BB due to low BP Ambulate Review of Systems - Review of Systems Respiratory: negative: Cough, Dry, Shortness of Breath, Hemoptysis, SOB with Excertion, Pleuritic Pain, Sputum, Wheezing Cardiovascular: negative: chest pain, palpitations, orthopnea, paroxysmal nocturnal dyspnea, edema, light headedness, other - Medications/Allergies Allergies/Adverse Reactions: Allergies Allergy/AdvReac Type Severity Reaction Status Date / Time morphine Allergy Severe VOMITING Verified 04/03/18 16:35 Medications: Current Medications Acetaminophen (Tylenol) 650 mg PO Q4H PRN PRN Reason: Headache/Fever/Mild Pain (1-3) Last Admin: 04/07/18 09:20 Dose: 650 mg Amiodarone HCl (Cordarone) 200 mg PO DAILY [facility] Last Admin: 04/07/18 09:21 Dose: 200 mg Apixaban (Eliquis) 5 mg PO BID [facility] Last Admin: 04/07/18 21:23 Dose: 5 mg Benzonatate (Tessalon) 100 mg PO Q6H PRN PRN Reason: Cough Bisacodyl (Dulcolax) 10 mg PO DAILYPRN PRN PRN Reason: Constipation Last Admin: 04/07/18 09:22 Dose: 10 mg Bisacodyl (Dulcolax) 10 mg [place] DAILYPRN PRN PRN Reason: Constipation Last Admin: 04/07/18 09:21 Dose: 10 mg Calcium Carbonate (Tums) 1,000 mg PO Q4H PRN PRN Reason: Heartburn or Indigestion Clonidine (Catapres) 0.1 mg PO Q4H PRN PRN Reason: SBP > 160____ Famotidine (Pepcid) 20 mg PO 0900 [facility] Last Admin: 04/07/18 09:21 Dose: 20 mg Fentanyl (Sublimaze) 12.5 mcg SLOW IVP Q4H PRN PRN Reason: Severe Pain (7-10) Last Admin: 04/06/18 01:12 Dose: 12.5 mcg Furosemide (Lasix) 40 mg SLOW IVP DAILY [facility] Guaifenesin (Robitussin Sf) 200 mg PO Q4H PRN PRN Reason: Cough Last Admin: 04/07/18 14:32 Dose: 200 mg Hydralazine HCl (Apresoline) 10 mg SLOW IVP Q4H PRN PRN Reason: SBP > 180 and HR < 70 Nitroglycerin (Nitrostat) 0.4 mg SL Q5MIN PRN PRN Reason: Chest Pain Ondansetron HCl (Zofran) 4 mg IVP Q6H PRN PRN Reason: Nausea/Vomiting Last Admin: 04/04/18 05:37 Dose: 4 mg Pramipexole Dihydrochloride (Mirapex) 0.5 mg PO BID [facility] Last Admin: 04/07/18 21:23 Dose: 0.5 mg Rosuvastatin Calcium (Crestor) 5 mg PO HS [facility] Last Admin: 04/07/18 21:23 Dose: 5 mg Senna/Docusate Sodium (Senokot S) 2 tab PO BID PRN PRN Reason: Constipation Last Admin: 04/07/18 14:36 Dose: 2 tab Sodium Chloride (Flush - Normal Saline) 10 ml IVF Q12HR [facility] Last Admin: 04/07/18 21:23 Dose: 10 ml Sodium Chloride (Flush - Normal Saline) 10 ml IVF PRN PRN PRN Reason: Saline Flush Tramadol HCl (Ultram) 50 mg PO Q4H PRN PRN Reason: Moderate Pain (4-6) Tramadol HCl (Ultram) 100 mg PO Q6H PRN PRN Reason: Pain Last Admin: 04/05/18 18:38 Dose: 100 mg
[2018-04-08] MEDS: Apixaban 5 MG TAB PO SCH ×2 (08:49→21:08)
[2018-04-08] MEDS: Amiodarone 200 MG TAB PO SCH (08:49)
[2018-04-08] MEDS: Famotidine 20 MG TAB PO SCH (08:49)
[2018-04-08] MEDS: Pramipexole Di-HCl 0.25 MG TAB PO SCH ×2 (08:49→21:08)
[2018-04-08] MEDS: Bisacodyl 5 MG TAB PO PRN (08:50)
[2018-04-08] MEDS: Bisacodyl 10 MG SUPP PR PRN (08:50)
[2018-04-08] MEDS ORDERED: Furosemide 40 MG/4 ML VIAL SLOW IVP SCH (09:00)
[2018-04-08] MEDS ORDERED: Senokot S 8.6-50 MG TAB PO SCH (09:00)
[2018-04-08] MEDS: Polyethylene Glycol 3350 17 GM Packet PO SCH (09:34)
[2018-04-08] MEDS ORDERED: Fleet Enema 133 ML BOT PR SCH (13:15)
--- NOTE | 2018-04-08 13:21 | PRG ---
DATE OF SERVICE: 04/08/2018 SUBJECTIVE: She is doing well this morning. No cough, no shortness of breath. OBJECTIVE: VITAL SIGNS: Sats are 98% on 1 liter, respiration 16, temperature 97, blood pressure 128/60. CHEST: No wheezing, crackles. CARDIAC: Normal S1, S2. No gallops. ABDOMEN: Soft, no masses. LABORATORY DATA: Creatinine 1.24. X-RAY FINDINGS: Her last chest x-ray shows still bilateral pleural effusion. IMPRESSION: Congestive heart failure, pericardial effusion, bilateral pleural effusion. PLAN: Continue diuretics. Supportive care.
--- NOTE | 2018-04-08 14:19 | PDOC.CTH ---
<Lilliam López - Last Filed: 04/08/18 16:47> Cardiology Progress Note - Subjective The pt seen and examined. No overnight events. No cardiac complaints. She has not had good BM since this admission. - Objective Vital Signs Temp Pulse Pulse Pulse Resp BP BP 04/08/18 11:35 60 18 04/08/18 11:04 60 60 129/58 L 117/58 L 04/08/18 08:41 97.9 F 65 16 04/08/18 08:30 04/08/18 03:36 98 F 65 18 BP Pulse Ox Pulse Ox 04/08/18 11:35 129/58 L 96 04/08/18 11:04 95 04/08/18 08:41 128/60 98 04/08/18 08:30 98 04/08/18 03:36 113/59 L 97 Weight 131 lb 14.4 oz 04/07/18 04/08/18 04/09/18 06:59 06:59 06:59 Intake Total 270 1228 Output Total 625 1680 Balance -355 -452 - Physical Examination General/Neuro: alert & oriented x3 Neck: no JVD present Lungs: other: (diminished at bases) Heart: RRR Abdomen: soft Extremities: other: (1+ pitting BLE edema) - Labs Result Diagrams: 04/07/18 04:53 04/07/18 04:53 Troponin/CKMB CK-MB (CK-2) 2.3 ng/mL (0-6.6) 04/03/18 11:12 Troponin I Less than 0.010 ng/mL (< 0.028) 04/03/18 17:55 - Assessment/Plan 1. Pericardial effusion with s/p Pericardial window - stable; [id number] IV was changed to PO. 2. Acute on chronic systolic HF exacerbation - stable; Not on LILO/ARB due to LEONARD on CKD stage 3; resume Metoprolol xl 25mg qd from tomorrow 3. Afib with LA thrombus - on Amiodarone 200mg qd and Eliquis 5mg BID. 4. HTN - stable 5. SSS s/p PM - stable 6. LEONARD on CKD 3 - improving. 7. Constipation Review of Systems - Review of Systems Constitutional: reports: no symptoms reported EENTM: reports: no symptoms reported Respiratory: reports: no symptoms reported Cardiac (ROS): reports: no symptoms reported ABD/GI: reports: no symptoms reported : reports: no symptoms reported Musculoskeletal: reports: no symptoms reported Skin: reports: no symptoms reported <Nadir Martino - Last Filed: 04/08/18 23:47> Cardiology Progress Note - Objective Vital Signs Temp Pulse Resp BP Pulse Ox 04/08/18 19:50 97.7 F 60 18 119/59 L 94 L 04/08/18 16:11 97.7 F 60 18 125/58 L 95 Weight 131 lb 14.4 oz 04/07/18 04/08/18 04/09/18 06:59 06:59 06:59 Intake Total 270 1228 480 Output Total 625 1680 600 Balance -355 -537 -120 - Labs Result Diagrams: 04/07/18 04:53 04/07/18 04:53 Troponin/CKMB CK-MB (CK-2) 2.3 ng/mL (0-6.6) 04/03/18 11:12 Troponin I Less than 0.010 ng/mL (< 0.028) 04/03/18 17:55 - Assessment/Plan Pt. seen and evaluated by me. I agree with the A/P by the CARPENTER'S ASSISTANT. We have discussed the pt. and the plan.Chest clear RRR. A-V pacing.She is feeling better. She walked some today.
--- NOTE | 2018-04-08 19:50 | PDOC.PN ---
- Subjective Encounter Start Date: 04/08/18 Encounter Start Time: 14:00 Patient seen and examined for CHF/Pericardial effusion. Feels gen weak. No new complaints. No overnight events - Objective Resuscitation Status: Resuscitation Status FULL:Full Resuscitation MAR Reviewed: Yes Vital Signs & Weight: Vital Signs (12 hours) Temp Pulse Pulse Pulse Resp BP BP 04/08/18 16:11 97.7 F 60 18 04/08/18 11:35 60 18 04/08/18 11:04 60 60 129/58 L 117/58 L 04/08/18 08:41 97.9 F 65 16 04/08/18 08:30 BP Pulse Ox Pulse Ox 04/08/18 16:11 125/58 L 95 04/08/18 11:35 129/58 L 96 04/08/18 11:04 95 04/08/18 08:41 128/60 98 04/08/18 08:30 98 Weight Weight 131 lb 14.4 oz I&O: 04/07/18 04/08/18 04/09/18 06:59 06:59 06:59 Intake Total 270 1228 480 Output Total 625 1680 600 Balance -355 -452 -120 Result Diagrams: 04/07/18 04:53 04/07/18 04:53 EKG Reviewed by me: Yes (Tele paced) Phys Exam - Physical Examination Constitutional: NAD Respiratory: no wheezing, no rhonchi Cardiovascular: RRR, no rub Gastrointestinal: soft, non-tender, positive bowel sounds Musculoskeletal: no edema Dx/Plan - Plan IMPRESSION: 1. Acute on chronic systolic CHF exacerbation - improving 2. Pericardial effusion s/p Pericardial window 3. Afib with LA thrombus on anticoag 4. HTN 5. SSS s/p PM 6. Hypokalemia/LEONARD on CKD 3 - improving/ Other issues per previous notes PLAN: Wean O2 Cont diuretics - change to PO Metoprolol restarted at low dose Cont Amidoarone and other meds as below No on ACEI/ARB due to CKD Cont Cardiac Rehab AM labs Review of Systems - Review of Systems Respiratory: negative: Cough, Dry, Shortness of Breath, Hemoptysis, SOB with Excertion, Pleuritic Pain, Sputum, Wheezing Cardiovascular: negative: chest pain, palpitations, orthopnea, paroxysmal nocturnal dyspnea, edema, light headedness, other - Medications/Allergies Allergies/Adverse Reactions: Allergies Allergy/AdvReac Type Severity Reaction Status Date / Time morphine Allergy Severe VOMITING Verified 04/03/18 16:35 Medications: Current Medications Acetaminophen (Tylenol) 650 mg PO Q4H PRN PRN Reason: Headache/Fever/Mild Pain (1-3) Last Admin: 04/07/18 09:20 Dose: 650 mg Amiodarone HCl (Cordarone) [address] [facility] Last Admin: 04/08/18 08:49 Dose: 200 mg Apixaban (Eliquis) [address] [facility] Last Admin: 04/08/18 08:49 Dose: 5 mg Benzonatate (Tessalon) 100 mg PO Q6H PRN PRN Reason: Cough Bisacodyl (Dulcolax) 10 mg PO DAILYPRN PRN PRN Reason: Constipation Last Admin: 04/08/18 08:50 Dose: 10 mg Bisacodyl (Dulcolax) 10 mg [place] DAILYPRN PRN PRN Reason: Constipation Last Admin: 04/08/18 08:50 Dose: 10 mg Calcium Carbonate (Tums) 1,000 mg PO Q4H PRN PRN Reason: Heartburn or Indigestion Clonidine (Catapres) 0.1 mg PO Q4H PRN PRN Reason: SBP > 160____ Famotidine (Pepcid) [address] [facility] Last Admin: 04/08/18 08:49 Dose: 20 mg Fentanyl (Sublimaze) 12.5 mcg SLOW IVP Q4H PRN PRN Reason: Severe Pain (7-10) Last Admin: 04/06/18 01:12 Dose: 12.5 mcg Furosemide (Lasix) 40 mg PO DAILY-[facility] Guaifenesin (Robitussin Sf) 200 mg PO Q4H PRN PRN Reason: Cough Last Admin: 04/07/18 14:32 Dose: 200 mg Hydralazine HCl (Apresoline) 10 mg SLOW IVP Q4H PRN PRN Reason: SBP > 180 and HR < 70 Metoprolol Succinate (Toprol Xl) [address] [facility] Nitroglycerin (Nitrostat) 0.4 mg SL Q5MIN PRN PRN Reason: Chest Pain Ondansetron HCl (Zofran) 4 mg IVP Q6H PRN PRN Reason: Nausea/Vomiting Last Admin: 04/04/18 05:37 Dose: 4 mg Polyethylene Glycol (Miralax) [address] [facility] Last Admin: 04/08/18 09:34 Dose: 17 gm Pramipexole Dihydrochloride (Mirapex) 0.[address] [facility] Last Admin: 04/08/18 08:49 Dose: 0.5 mg Rosuvastatin Calcium (Crestor) [address] [facility] Last Admin: 04/07/18 21:23 Dose: 5 mg Senna/Docusate Sodium (Senokot S) 2 tab PO BID PRN PRN Reason: Constipation Last Admin: 04/07/18 14:36 Dose: 2 tab Senna/Docusate Sodium (Senokot S) [address] [facility] Last Admin: 04/08/18 08:49 Dose: 2 tab Sodium Chloride (Flush - Normal Saline) [address] [facility] Last Admin: 04/08/18 08:51 Dose: 10 ml Sodium Chloride (Flush - Normal Saline) 10 ml IVF PRN PRN PRN Reason: Saline Flush Tramadol HCl (Ultram) 50 mg PO Q4H PRN PRN Reason: Moderate Pain (4-6) Tramadol HCl (Ultram) 100 mg PO Q6H PRN PRN Reason: Pain Last Admin: 04/05/18 18:38 Dose: 100 mg
[2018-04-08] MEDS: Rosuvastatin 5 MG TAB PO SCH (21:21)
[2018-04-08] MEDS: Acetaminophen 325 MG TAB PO PRN (22:17)
[2018-04-09] MEDS: Ondansetron PF 4 MG/2 ML Vial IVP PRN (02:42)
[2018-04-09 06:24] LABS: Hemoglobin 9.8 g/dL (12.0-16.0); Platelet Count 255 thou/uL (130-400)
[2018-04-09 06:36] LABS: Anion Gap 10 mmol/L (10-20); BUN (Urea Nitrogen) 19 mg/dL (9.8-20.1); Calc. Creatinine Clearance 48 mL/min (70-130); Calcium 8.8 mg/dL (7.8-10.44); Carbon Dioxide 32 mmol/L (23-31); Chloride 98 mmol/L (98-107); Estimated GFR-MDRD 54; Glucose 103 mg/dL (83-110); Magnesium 1.9 mg/dL (1.6-2.6); Sodium 137 mmol/L (136-145)
[2018-04-09 06:41] LABS: Potassium 2.7 mmol/L (3.5-5.1)
[2018-04-09] MEDS: Potassium Chloride 20 MEQ in Premix Bag 1 BAG IVPB SCH ×3 (07:55→12:39)
[2018-04-09] MEDS: Famotidine 20 MG TAB PO SCH (09:26)
[2018-04-09] MEDS: Apixaban 5 MG TAB PO SCH ×2 (09:26→21:03)
[2018-04-09] MEDS: Amiodarone 200 MG TAB PO SCH (09:26)
[2018-04-09] MEDS: Pramipexole Di-HCl 0.25 MG TAB PO SCH ×2 (09:27→21:03)
[2018-04-09] MEDS: Furosemide 40 MG TAB PO SCH (09:27)
[2018-04-09] MEDS: Polyethylene Glycol 3350 17 GM Packet PO SCH (09:28)
--- NOTE | 2018-04-09 12:32 | PRG ---
DATE OF SERVICE: 04/09/2018 SUBJECTIVE: Courtney Barney is an 72-year-old female, who is feeling better, less weak, less short of breath. OBJECTIVE: VITAL SIGNS: Sats are 93 on room air, respirations 16, temperature 98.7, blood pressure 135/65. CHEST: No crackles. CARDIAC: Normal S1, S2. No gallops. ABDOMEN: Soft. No masses. IMPRESSION: Respiratory failure, congestive heart failure, pericardial effusion status post window, pleural effusion. PLAN: Continue PT and supportive care, eventually home.
--- NOTE | 2018-04-09 14:16 | PDOC.CTH ---
<Lilliam López - Last Filed: 04/09/18 14:17> Cardiology Progress Note - Subjective The pt seen and examined. No overnight events. No cardiac complaints. - Objective Vital Signs Temp Pulse Resp BP BP Pulse Ox 04/09/18 11:41 65 16 135/65 95 04/09/18 07:48 96.7 F L 60 16 135/63 97 04/09/18 07:02 94 L 04/09/18 05:29 93 L 04/09/18 03:33 98.0 F 61 14 114/56 L 93 L Weight 126 lb 3.2 oz 04/08/18 04/09/18 04/10/18 06:59 06:59 06:59 Intake Total 1228 580 Output Total 1680 600 Balance -452 -20 - Physical Examination General/Neuro: alert & oriented x3 Neck: no JVD present Lungs: other: (diminished at bases) Heart: RRR Abdomen: soft Extremities: other: - Telemetry Telemetry Rhythm: AV paced - Labs Result Diagrams: 04/09/18 05:52 04/09/18 05:52 Troponin/CKMB CK-MB (CK-2) 2.3 ng/mL (0-6.6) 04/03/18 11:12 Troponin I Less than 0.010 ng/mL (< 0.028) 04/03/18 17:55 - Assessment/Plan 1. Pericardial effusion with s/p Pericardial window - stable; [id number] IV was changed to PO. 2. Acute on chronic systolic HF exacerbation - stable; Not on LILO/ARB due to LEONARD on CKD stage 3; resume Metoprolol xl 25mg qd from tomorrow 3. Afib with LA thrombus - on Amiodarone 200mg qd and Eliquis 5mg BID. 4. HTN - stable 5. SSS s/p PM - stable 6. LEONARD on CKD 3 - improving. 7. Hypokalemia - Replacement 8. Constipation - resolved MAR reviewed Review of Systems - Review of Systems Constitutional: reports: no symptoms reported EENTM: reports: no symptoms reported Respiratory: reports: no symptoms reported Cardiac (ROS): reports: no symptoms reported ABD/GI: reports: no symptoms reported : reports: no symptoms reported Musculoskeletal: reports: no symptoms reported Skin: reports: no symptoms reported <Martino,G Jamari - Last Filed: 04/09/18 22:19> Cardiology Progress Note - Objective Vital Signs Temp Pulse Pulse Pulse Resp BP BP 04/09/18 16:42 97.7 F 63 16 04/09/18 11:41 65 16 04/09/18 11:21 61 64 135/65 144/65 H BP Pulse Ox Pulse Ox Pulse Ox 04/09/18 16:42 119/59 L 97 04/09/18 11:41 135/65 95 04/09/18 11:21 90 L 98 Weight 126 lb 3.2 oz 04/08/18 04/09/18 04/10/18 06:59 06:59 06:59 Intake Total 0864 638 7181 Output Total 1680 600 Balance -452 -20 1280 - Labs Result Diagrams: 04/09/18 05:52 04/09/18 19:56 Troponin/CKMB CK-MB (CK-2) 2.3 ng/mL (0-6.6) 04/03/18 11:12 Troponin I Less than 0.010 ng/mL (< 0.028) 04/03/18 17:55 - Assessment/Plan Pt. seen and evaluated by me. I agree with the A/P by the DYNAMICS AX TECHNICAL ARCHITECT. We have discussed the pt. and the plan.Chest clear RRR. She is feeling better each day.
--- NOTE | 2018-04-09 19:39 | PDOC.PN ---
- Subjective Encounter Start Date: 04/09/18 Encounter Start Time: 12:00 Patient seen and examined for CHF. No new complaints. No overnight events - Objective Resuscitation Status: Resuscitation Status FULL:Full Resuscitation MAR Reviewed: Yes Vital Signs & Weight: Vital Signs (12 hours) Temp Pulse Pulse Pulse Resp BP BP 04/09/18 16:42 97.7 F 63 16 04/09/18 11:41 65 16 04/09/18 11:21 61 64 135/65 144/65 H 04/09/18 07:48 96.7 F L 60 16 BP Pulse Ox Pulse Ox Pulse Ox 04/09/18 16:42 119/59 L 97 04/09/18 11:41 135/65 95 04/09/18 11:21 90 L 98 04/09/18 07:48 135/63 97 Weight Weight 126 lb 3.2 oz I&O: 04/08/18 04/09/18 04/10/18 06:59 06:59 06:59 Intake Total 1952 458 1418 Output Total 1680 600 Balance -452 -20 1280 Result Diagrams: 04/09/18 05:52 04/09/18 05:52 EKG Reviewed by me: Yes (Tele paced) Phys Exam - Physical Examination Constitutional: NAD Respiratory: no wheezing, no rhonchi few bibasilar rales Cardiovascular: RRR, no rub Gastrointestinal: soft, non-tender, positive bowel sounds Musculoskeletal: edema present (improving) Neurological: moves all 4 limbs Dx/Plan - Plan IMPRESSION: 1. Acute on chronic systolic CHF exacerbation - improving - 15 lbs weight loss 2. Pericardial effusion s/p Pericardial window 3. Afib with LA thrombus on anticoag 4. HTN 5. SSS s/p PM 6. Hypokalemia/LEONARD on CKD 3 - improving/ Other issues per previous notes PLAN: Cont PO Lasix with Amiodarone/Metoprolol Cont other meds as below No on ACEI/ARB due to CKD Cont Cardiac Rehab Replace Potassium - Unable to tolerate IV KCL - Will change to PO Repeat Potassium later today AM labs Review of Systems - Review of Systems Cardiovascular: negative: chest pain, palpitations, orthopnea, paroxysmal nocturnal dyspnea, edema, light headedness, other Gastrointestinal: negative: Nausea, Vomiting, Abdominal Pain, Diarrhea, Constipation, Melena, Hematochezia, Other - Medications/Allergies Allergies/Adverse Reactions: Allergies Allergy/AdvReac Type Severity Reaction Status Date / Time morphine Allergy Severe VOMITING Verified 04/03/18 16:35 Medications: Current Medications Acetaminophen (Tylenol) 650 mg PO Q4H PRN PRN Reason: Headache/Fever/Mild Pain (1-3) Last Admin: 04/08/18 22:17 Dose: 650 mg Amiodarone HCl (Cordarone) 200 mg PO DAILY [facility] Last Admin: 04/09/18 09:26 Dose: 200 mg Apixaban (Eliquis) 5 mg PO BID [facility] Last Admin: 04/09/18 09:26 Dose: 5 mg Benzonatate (Tessalon) 100 mg PO Q6H PRN PRN Reason: Cough Bisacodyl (Dulcolax) 10 mg PO DAILYPRN PRN PRN Reason: Constipation Last Admin: 04/08/18 08:50 Dose: 10 mg Bisacodyl (Dulcolax) 10 mg [place] DAILYPRN PRN PRN Reason: Constipation Last Admin: 04/08/18 08:50 Dose: 10 mg Calcium Carbonate (Tums) 1,000 mg PO Q4H PRN PRN Reason: Heartburn or Indigestion Clonidine (Catapres) 0.1 mg PO Q4H PRN PRN Reason: SBP > 160____ Famotidine (Pepcid) 20 mg PO 0900 [facility] Last Admin: 04/09/18 09:26 Dose: 20 mg Fentanyl (Sublimaze) 12.5 mcg SLOW IVP Q4H PRN PRN Reason: Severe Pain (7-10) Last Admin: 04/06/18 01:12 Dose: 12.5 mcg Furosemide (Lasix) 40 mg PO DAILY[facility] Last Admin: 04/09/18 09:27 Dose: 40 mg Guaifenesin (Robitussin Sf) 200 mg PO Q4H PRN PRN Reason: Cough Last Admin: 04/07/18 14:32 Dose: 200 mg Hydralazine HCl (Apresoline) 10 mg SLOW IVP Q4H PRN PRN Reason: SBP > 180 and HR < 70 Metoprolol Succinate (Toprol Xl) 25 mg PO DAILY [facility] Last Admin: 04/09/18 09:27 Dose: 25 mg Nitroglycerin (Nitrostat) 0.4 mg SL Q5MIN PRN PRN Reason: Chest Pain Ondansetron HCl (Zofran) 4 mg IVP Q6H PRN PRN Reason: Nausea/Vomiting Last Admin: 04/09/18 02:42 Dose: 4 mg Polyethylene Glycol (Miralax) 17 gm PO DAILY [facility] Last Admin: 04/09/18 09:28 Dose: Not Given Potassium Chloride (Klor-Con) 20 meq PO 2100 PRN PRN Reason: Potassium <3.5 Pramipexole Dihydrochloride (Mirapex) 0.5 mg PO BID [facility] Last Admin: 04/09/18 09:27 Dose: 0.5 mg Rosuvastatin Calcium (Crestor) 5 mg PO HS [facility] Last Admin: 04/08/18 21:21 Dose: 5 mg Senna/Docusate Sodium (Senokot S) 2 tab PO BID PRN PRN Reason: Constipation Last Admin: 04/07/18 14:36 Dose: 2 tab Sodium Chloride (Flush - Normal Saline) 10 ml IVF Q12HR [facility] Last Admin: 04/09/18 09:27 Dose: 10 ml Sodium Chloride (Flush - Normal Saline) 10 ml IVF PRN PRN PRN Reason: Saline Flush Tramadol HCl (Ultram) 50 mg PO Q4H PRN PRN Reason: Moderate Pain (4-6) Tramadol HCl (Ultram) 100 mg PO Q6H PRN PRN Reason: Pain Last Admin: 04/05/18 18:38 Dose: 100 mg
[2018-04-09 20:31] LABS: Potassium 4.5 mmol/L (3.5-5.1)
[2018-04-09] MEDS: Rosuvastatin 5 MG TAB PO SCH (21:02)
[2018-04-09] MEDS: traMADol HCl 50 MG TAB PO PRN (21:03)
[2018-04-10] MEDS: traMADol HCl 50 MG TAB PO PRN (01:09)
[2018-04-10 05:16] LABS: Anion Gap 13 mmol/L (10-20); BUN (Urea Nitrogen) 16 mg/dL (9.8-20.1); Calc. Creatinine Clearance 44 mL/min (70-130); Calcium 8.8 mg/dL (7.8-10.44); Carbon Dioxide 27 mmol/L (23-31); Chloride 100 mmol/L (98-107); Estimated GFR-MDRD 52; Glucose 94 mg/dL (83-110); Phosphorus 2.1 mg/dL (2.3-4.7); Potassium 3.8 mmol/L (3.5-5.1); Sodium 136 mmol/L (136-145)
[2018-04-10] MEDS: Amiodarone 200 MG TAB PO SCH (08:34)
[2018-04-10] MEDS: Apixaban 5 MG TAB PO SCH (08:34)
[2018-04-10] MEDS: Famotidine 20 MG TAB PO SCH (08:34)
[2018-04-10] MEDS: Furosemide 40 MG TAB PO SCH (08:34)
[2018-04-10] MEDS: Pramipexole Di-HCl 0.25 MG TAB PO SCH (08:35)
--- NOTE | 2018-04-10 09:10 | PDOC.PN ---
- Subjective Encounter Start Date: 04/10/18 Encounter Start Time: 09:09 Subjective: feels well. mild MALONE but no CP/palpitations - Objective Resuscitation Status: Resuscitation Status FULL:Full Resuscitation MAR Reviewed: Yes Vital Signs & Weight: Vital Signs (12 hours) Temp Pulse Resp BP Pulse Ox 04/10/18 08:32 97.8 F 64 15 113/56 L 97 04/10/18 05:21 93 L 04/10/18 03:40 97.5 F L 64 18 105/54 L 93 L Weight Weight 127 lb 4.8 oz I&O: 04/09/18 04/10/18 04/11/18 06:59 06:59 06:59 Intake Total 580 1330 Output Total 600 Balance -20 1330 Result Diagrams: 04/09/18 05:52 04/10/18 04:27 Additional Labs: Laboratory Tests 04/03/18 04/03/18 04/05/18 12:37 22:37 04:48 Creatinine 1.44 H 1.35 H 1.38 H Phosphorus 04/07/18 04/09/18 04/10/18 04:53 05:52 04:27 Creatinine 1.24 H 1.01 1.05 Phosphorus 2.1 L Phys Exam - Physical Examination Constitutional: NAD HEENT: PERRLA, moist MMs, sclera anicteric, oral pharynx no lesions Neck: no nodes, no JVD, supple, full ROM Respiratory: no wheezing, no rales, no rhonchi, clear to auscultation bilateral Cardiovascular: RRR, no significant murmur, no rub Gastrointestinal: soft, non-tender, no distention, positive bowel sounds Musculoskeletal: no edema, pulses present Neurological: non-focal, normal sensation, moves all 4 limbs Psychiatric: normal affect, A&O x 3 Skin: no rash Dx/Plan (1) Acute respiratory failure with hypoxia Code(s): J96.01 - ACUTE RESPIRATORY FAILURE WITH HYPOXIA Status: Resolved (2) Acute on chronic diastolic CHF (congestive heart failure) Code(s): I50.33 - ACUTE ON CHRONIC DIASTOLIC (CONGESTIVE) HEART FAILURE Status : Resolved Comment: NYHA stage 3 (3) Pericardial effusion Code(s): I31.3 - PERICARDIAL EFFUSION (NONINFLAMMATORY) Status: Acute Comment: worsened when compared to prior ECHO.s/p pericardial window and subsequent removal of pericardial drain (4) LEONARD (acute kidney injury) Code(s): N17.9 - ACUTE KIDNEY FAILURE, UNSPECIFIED Status: Resolved (5) RLS (restless legs syndrome) Status: Suspected Comment: Continue home meds. (6) Thrombus of left atrial appendage Code(s): I51.3 - INTRACARDIAC THROMBOSIS, NOT ELSEWHERE CLASSIFIED Status: Chronic Comment: On Eliquis with plans for MAIRA mesh/watchman (7) Sick sinus syndrome Code(s): I49.5 - SICK SINUS SYNDROME Status: Chronic Comment: S/P PPM placement. Site looks good. (8) Atrial fibrillation, persistent Code(s): I48.1 - PERSISTENT ATRIAL FIBRILLATION Status: Chronic Comment: On Eliquis and amiodarone. - Plan DVT proph w/SCDs Ok to DC -: discussed w EP and CTS. -: meds reconciled. -: OP f/u w CR. -: HD stable * .1. Acute on chronic systolic CHF exacerbation - improving - 15 lbs weight loss 2. Pericardial effusion s/p Pericardial window 3. Afib with LA thrombus on anticoag 4. HTN 5. SSS s/p PM 6. Hypokalemia/LEONARD on CKD 3 - improving/ Other issues per previous notes PLAN: Cont PO Lasix with Amiodarone.Metoprolol stopped by cardiology. Cont other meds as below No on ACEI/ARB due to CKD.? Add as LEONARD resolved now. Cont Eliquis. Increased to 5 BID by cardiology. Cont Cardiac Rehab AM labs Review of Systems - Review of Systems Constitutional: negative: fever, chills, sweats, weakness, malaise, other ENT: negative: Ear Pain, Ear Discharge, Nose Pain, Nose Discharge, Nose Congestion, Mouth Pain, Mouth Swelling, Throat Pain, Throat Swelling, Other Respiratory: SOB with Excertion. negative: Cough, Dry, Shortness of Breath, Hemoptysis, Pleuritic Pain, Sputum, Wheezing Gastrointestinal: negative: Nausea, Vomiting, Abdominal Pain, Diarrhea, Constipation, Melena, Hematochezia, Other Genitourinary: negative: Dysuria, Frequency, Incontinence, Hematuria, Retention , Other Musculoskeletal: negative: Neck Pain, Shoulder Pain, Arm Pain, Back Pain, Hand Pain, Leg Pain, Foot Pain, Other Skin: negative: Rash, Lesions, Pieter, Bruising, Other Neurological: negative: Weakness, Numbness, Incoordination, Change in Speech, Confusion, Seizures, Other - Medications/Allergies Allergies/Adverse Reactions: Allergies Allergy/AdvReac Type Severity Reaction Status Date / Time morphine Allergy Severe VOMITING Verified 04/03/18 16:35 Medications: Current Medications Acetaminophen (Tylenol) 650 mg PO Q4H PRN PRN Reason: Headache/Fever/Mild Pain (1-3) Last Admin: 04/08/18 22:17 Dose: 650 mg Amiodarone HCl (Cordarone) 200 mg PO DAILY [facility] Last Admin: 04/10/18 08:34 Dose: 200 mg Apixaban (Eliquis) 5 mg PO BID [facility] Last Admin: 04/10/18 08:34 Dose: 5 mg Benzonatate (Tessalon) 100 mg PO Q6H PRN PRN Reason: Cough Bisacodyl (Dulcolax) 10 mg PO DAILYPRN PRN PRN Reason: Constipation Last Admin: 04/08/18 08:50 Dose: 10 mg Bisacodyl (Dulcolax) 10 mg [place] DAILYPRN PRN PRN Reason: Constipation Last Admin: 04/08/18 08:50 Dose: 10 mg Calcium Carbonate (Tums) 1,000 mg PO Q4H PRN PRN Reason: Heartburn or Indigestion Clonidine (Catapres) 0.1 mg PO Q4H PRN PRN Reason: SBP > 160____ Famotidine (Pepcid) 20 mg PO 0900 [facility] Last Admin: 04/10/18 08:34 Dose: 20 mg Fentanyl (Sublimaze) 12.5 mcg SLOW IVP Q4H PRN PRN Reason: Severe Pain (7-10) Last Admin: 04/06/18 01:12 Dose: 12.5 mcg Furosemide (Lasix) 40 mg PO DAILY-[facility] Last Admin: 04/10/18 08:34 Dose: 40 mg Guaifenesin (Robitussin Sf) 200 mg PO Q4H PRN PRN Reason: Cough Last Admin: 04/07/18 14:32 Dose: 200 mg Hydralazine HCl (Apresoline) 10 mg SLOW IVP Q4H PRN PRN Reason: SBP > 180 and HR < 70 Nitroglycerin (Nitrostat) 0.4 mg SL Q5MIN PRN PRN Reason: Chest Pain Ondansetron HCl (Zofran) 4 mg IVP Q6H PRN PRN Reason: Nausea/Vomiting Last Admin: 04/09/18 02:42 Dose: 4 mg Potassium Chloride (Klor-Con) 20 meq PO 2100 PRN PRN Reason: Potassium <3.5 Pramipexole Dihydrochloride (Mirapex) 0.5 mg PO BID [facility] Last Admin: 04/10/18 08:35 Dose: 0.5 mg Rosuvastatin Calcium (Crestor) 5 mg PO HS [facility] Last Admin: 04/09/18 21:02 Dose: 5 mg Senna/Docusate Sodium (Senokot S) 2 tab PO BID PRN PRN Reason: Constipation Last Admin: 04/07/18 14:36 Dose: 2 tab Sodium Chloride (Flush - Normal Saline) 10 ml IVF Q12HR [facility] Last Admin: 04/10/18 08:35 Dose: 10 ml Sodium Chloride (Flush - Normal Saline) 10 ml IVF PRN PRN PRN Reason: Saline Flush Tramadol HCl (Ultram) 50 mg PO Q4H PRN PRN Reason: Moderate Pain (4-6) Last Admin: 04/10/18 01:09 Dose: 50 mg Tramadol HCl (Ultram) 100 mg PO Q6H PRN PRN Reason: Pain Last Admin: 04/05/18 18:38 Dose: 100 mg
--- NOTE | 2018-04-10 11:00 | PRG ---
DATE OF SERVICE: 04/10/2018 SUBJECTIVE: The patient says her breathing is significantly improved and she wants to go home. PHYSICAL EXAMINATION: VITAL SIGNS: On exam, temperature is 97.8, pulse 64, respirations 15, O2 97% on room air, blood pres sure 113/56. HEENT: Unremarkable. NECK: No JVD. CHEST: Clear, without wheezing or rhonchi. CARDIAC: S1 and S2, regular. ABDOMEN: Soft. EXTREMITIES: No edema. ASSESSMENT: 1. Status post evacuation of pericardial effusion. 2. Pleural effusion, which have improved. PLAN: From my standpoint, she is stable for discharge. There is no further pulmonary recommendation s and we will sign off.
[2018-04-10 12:52] VITALS: TEMP 97.6
[2018-04-10 15:20] VITALS: BP 134/63
--- NOTE | 2018-04-11 01:01 | DIS ---
DATE OF ADMISSION: 04/03/2018 DATE OF DISCHARGE: 04/10/2018 DISCHARGE DISPOSITION: Home with home health. PRIMARY CARE PHYSICIAN AND COLOR SPECIALIST: Dr. Carlos Woods. DISCHARGE DIAGNOSES: 1. Pericardial effusion, status post pericardial window with drain removal prior to discharge. 2. Acute on chronic systolic congestive heart failure, improving. 3. Acute hypoxic respiratory failure on presentation, improved. 4. Chronic atrial fibrillation with left atrial thrombus, on chronic anticoagulation with Eliquis. 5. Hypertension. 6. History of sick sinus syndrome, status post pacemaker placement. 7. Acute on chronic kidney disease 3, improved. 8. Hyperkalemia, resolved. INHOUSE CONSULTATION. 1. Cardiology, Dr. Woods and [place]. 2. Electrophysiology, Dr. Kasper. 3. Pulmonary Medicine, Dr. Long. DISCHARGE MEDICATIONS: Amiodarone 200 mg daily, pramipexole 0.5 mg p.o. b.i.d., Eliquis 5 mg p.o. b. i.d., Crestor 5 mg daily, potassium chloride 20 mEq a day, Lasix 40 mg daily. Please note that the p sharmaine has been taken off of her metoprolol by Cardiology. PROCEDURES DONE IN HOSPITAL: 1. Abdominal ultrasound upon presentation on 04/03/2018 which shows biliary sludge within the gallbl adder consistent with chronic gallbladder dyskinesis without any acute obstruction. 2. Transthoracic echocardiogram, which shows EF of 50% to 55%, severe mitral regurgitation, mild to moderate tricuspid and aortic regurgitation and moderate to large circumferential pericardial effusio n. 3. Pericardial window on 04/05/[address] Alon Cervantes. 4. Removal of the pericardial drain. HISTORY OF PRESENT ILLNESS: Ms. Barney is a pleasant 72-year-old female with known history of chron ic systolic congestive heart failure and recent pacemaker insertion due to sick sinus syndrome, prese nted to the emergency room with worsening shortness of breath. She also complained of abdominal bloa ting, distention and abdominal wall edema. She has echo done in the last month during last hospitali zation which showed EF of 35% to 40% with small pericardial effusion and an echo done prior to that i n 11/2017 showing EF of 50% to 55%. She is also on Eliquis for left atrial appendage thrombus and wa s scheduled to undergo a left atrial appendage ligation as an outpatient. Upon presentation, she was somewhat hypoxic requiring oxygen by nasal cannula and was admitted with a presumptive diagnosis of acute congestive heart failure exacerbation and was started on diuresis. C ardiology was consulted as well as Pulmonary Medicine as she was known to have bilateral pleural effu violette on a CT scan done few days prior to admission as an outpatient. Please see admission history an d physical for further detail. The patient was diuresed and echocardiogram was reordered. It showed improvement in the ejection fra ction, but worsening of the pericardial effusion. Pacemaker was interrogated and was found to be wor mari well. Initially, Dr. Martino saw the patient and then Dr. Woods followed the patient along. Dr Lashaun Kasper from Electrophysiology was consulted regarding her history of paroxysmal atrial fibrillation a nd left atrial thrombus with an upcoming appointment for Watchman device. She was continued on her a miodarone and Eliquis while in the hospital. Dr. Kasper recommended continuing outpatient followup onc e her acute CHF episode is over. He is considering upgrade to biventricular pacemaker as an outpatie nt. Dr. Alon Cervantes from Cardiothoracic Surgery was consulted with regards to moderate to severe perica rdial effusion and the patient's presentation with worsening shortness of breath. He looked at the e cho and recommended a pericardial window. This was done successfully with improvement in the symptom s and eventually the drain was discontinued. Pulmonary Medicine was also consulted with regards to bilateral pleural effusion and Dr. Long saw the patient. The pleural effusions were found to be secondary to acute congestive heart failure and repeat chest x-rays were followed by Dr. Long showing improvement in the pleural effusions. As of this morning, the patient is back to her baseline and is on ambient air without any respiratory distress. Discharge plan was discussed with the patient and her son present at the bedside as well as multiple specialists involved. The patient was given options for rehabilitation, but at this time they declined. They will follow up with outpatient cardiac rehabilitation which she has appointment to on 04/20/2018 at 9:00 a.m. She was seen and examined prior to discharge. Please see hospitalist progress note from today's date for further detail including [id number] interaction. All questions were answered. Medication pre scriptions were provided. Her metoprolol has been stopped by Dr. Woods. Her simvastatin has been changed to Crestor. She will follow up with primary care physician, Cardiology and Electrophysiology in the outpatient se tting. TOTAL TIME SPENT IN THE DISCHARGE: 32 minutes.
== END 2018-04-10 14:58 | disposition home or self-care (01) | DRG 270 ==
LOC: ERS 10:52 → 2NO 14:50
PROVIDERS: ADMIT Internal Medicine; ATTEND Internal Medicine
PROC: 0W9D00Z Drainage of Pericardial Cavity with Drainage Device, Open Approach (ICD-10-PCS; principal; 2018-04-05)
DX: I13.0 Hypertensive heart and chronic kidney disease with heart failure and stage 1 through stage 4 chronic kidney disease, or unspecified chronic kidney disease (principal); I50.23 Acute on chronic systolic (congestive) heart failure; J96.01 Acute respiratory failure with hypoxia; I31.3 Pericardial effusion (noninflammatory); N17.9 Acute kidney failure, unspecified; N18.3 Chronic kidney disease, stage 3 (moderate); I51.3 Intracardiac thrombosis, not elsewhere classified; I49.5 Sick sinus syndrome; Z95.0 Presence of cardiac pacemaker; E87.5 Hyperkalemia; K59.00 Constipation, unspecified
CPT/HCPCS: 36415; 71045; 76705; 80048; 80053; 82553; 82565; 83690; 83735; 83880; 84100; 84484; 85014; 85018; 85025; 85049; 90471; 90662; 93005; 93306; 93798; 94760; 96374; G0008; J0670; J0690; J1642; J1940; J2001; J2405; J2704; J3010; J3480; J7050

== ENCOUNTER 2018-05-18 08:59 | Outpatient (CLI) | payer MEDICARE, OTHER ==
--- NOTE | 2018-05-18 09:32 | RAD ---
2 VIEWS CHEST: Date: 05/18/18 COMPARISON: 04/24/18. HISTORY: Dyspnea. FINDINGS: Two views of the chest show an enlarged but stable cardiomediastinal silhouette. The pacemaker has be en exchanged with leads in the right atrium, right ventricle, and coronary sinus. There is a small le ft pleural effusion. No pneumothorax is seen. A calcified granuloma projects over the right upper lob e. IMPRESSION: 1. Small left pleural effusion. 2. Status post pacemaker exchange without evidence of complication. POS: CATHYH
== END 2018-05-18 09:00 | disposition home or self-care (01) ==
LOC: RAD 08:59
PROVIDERS: ATTEND Internal Medicine
DX: R06.00 Dyspnea, unspecified (principal); J90 Pleural effusion, not elsewhere classified; Z95.0 Presence of cardiac pacemaker
CPT/HCPCS: 71046

== ENCOUNTER 2018-06-28 05:53 | Day surgery (SDC) | payer MEDICARE, OTHER ==
[2018-06-27 15:38] VITALS: BMI 25.0
[2018-06-28 06:53] LABS: #Monocytes 0.6 thou/uL (0.11-0.59); %Basophils 0.1 % (0.0-1.0); %Eosinophils 0.5 % (0.0-10.0); %Lymphocytes 10.5 % (21.0-51.0); %Monocytes 5.9 % (0.0-10.0); %Neutrophils 83.1 % (42.0-75.0); Hemoglobin 10.1 g/dL (12.0-16.0); Mean Corpuscular HGB CONC 32.6 g/dL (32.0-36.0); Mean Corpuscular Hemoglobin 29.5 pg (27.0-31.0); Mean Corpuscular Volume 90.6 fL (78.0-98.0); Mean Platelet Volume 7.5 fL (7.4-10.4); Platelet Count 243 thou/uL (130-400); RBC Distribution Width 15.3 % (11.5-14.5); Red Blood Cell (RBC) Count 3.43 mill/uL (4.20-5.40); White Blood Cell (WBC) Count 9.7 thou/uL (4.8-10.8)
[2018-06-28 06:59] LABS: INR-International Normal Ratio 2.4; PTT 47.5 SEC (22.9-36.1)
[2018-06-28 07:04] LABS: Anion Gap 13 mmol/L (10-20); BUN (Urea Nitrogen) 19 mg/dL (9.8-20.1); Calc. Creatinine Clearance 34 mL/min (70-130); Calcium 9.5 mg/dL (7.8-10.44); Carbon Dioxide 25 mmol/L (23-31); Chloride 101 mmol/L (98-107); Estimated GFR-MDRD 38; Glucose 100 mg/dL (83-110); Potassium 3.3 mmol/L (3.5-5.1); Sodium 136 mmol/L (136-145)
[2018-06-28] MEDS ORDERED: PROPOFOL 20 ML ONE (08:00)
[2018-06-28] MEDS ORDERED: Fentanyl 100 MCG/2 ML VIAL ONE (08:42)
--- NOTE | 2018-06-28 08:47 | RAD ---
LEFT WRIST 3 VIEWS: Date: 06/28/18 HISTORY: 72-year-old female with history of injury from a fall. FINDINGS: Severe intercarpal arthrosis changes are noted with considerable deformity of the lunate, capitate, h amate, scaphoid, trapezium, and trapezoid bones, with severe longstanding arthrosis. Abnormal widenin g of the scapholunate space, evidence for scapholunate ligament injury. No evidence for acute fractur e or dislocation. IMPRESSION: Severe deformity of the carpal bones with irregular appearing deformed carpal bones with findings of severe longstanding arthrosis. Abnormal widening of the scapholunate space, evidence for scapholunate ligament injury. No evidence for an overt acute fracture. If the patient has persistent or worsening unexplained pain referable to the wrist which does not res olve, consideration for follow-up nonemergent MRI study might be of benefit. POS: OFF
--- NOTE | 2018-06-28 08:52 | RAD ---
LEFT HAND THREE VIEWS: History: 72-year-old female with history of left hand injury following a fall. FINDINGS: There is arthrosis and degenerative changes of the left hand and very severe arthrosis with resultant deformity of the carpal bones and wrist with abnormal widening of the scapholunate space and partial collapse of numerous carpal bones. This appearance is most consistent with severe long standing arth rosis. No evidence for acute fracture or dislocation. IMPRESSION: Bone demineralization with very severe arthrosis and degenerative changes and considerable resultant deformity of the carpal bones of the wrist as well as some less marked degenerative changes of the andujar nd. No evidence for acute fracture or dislocation. Abnormal widening the scapholunate space. POS: OFF
--- NOTE | 2018-06-28 13:02 | EKG ---
Test Reason : PREOP Blood Pressure : / mmHG Vent. Rate : 070 BPM Atrial Rate : 070 BPM P-R Int : 222 ms QRS Dur : 152 ms QT Int : 504 ms P-R-T Axes : 060 031 073 degrees QTc Int : 544 ms AV sequential or dual chamber electronic pacemaker When compared with ECG of 03-APR-2018 10:59, Vent. rate has decreased BY [address] Lenin DEGROOT ([id number]) on 06/28/2018 1:01:57 PM Referred By: ANNIE Confirmed By:DR. Lenin DEGROOT
[2018-06-28] MEDS ORDERED: PROPOFOL 200 MG/20 ML VIAL ONE (14:49)
--- NOTE | 2018-06-28 23:13 | ECHO ---
This is a 72-year-old woman with paroxysmal atrial fibrillation. DESCRIPTION OF PROCEDURE: The patient was taken to the PACU. The patient was sedated by anesthesiology. A transesophageal pro be was placed into the distal esophagus and stomach. Echocardiographic images were obtained. The tr ansesophageal probe was removed. FINDINGS: 1. Normal left ventricular systolic function. 2. Left atrial enlargement. 3. Moderate to severe mitral regurgitation. 4. Mild tricuspid regurgitation. 5. Watchman device was well positioned in the left atrial appendage. 6. A small leak was noted around the periphery of the device. 7. Pacemaker wire is noted in the right ventricle. 8. Atherosclerotic debris in the descending aorta. IMPRESSION: Watchman device is well positioned with a small leak noted around the device.
== END 2018-06-28 10:15 | disposition home or self-care (01) ==
LOC: CCL 05:53
PROVIDERS: ATTEND Internal Medicine Cardiovascular Disease
PROC: B24BZZ4 Ultrasonography of Heart with Aorta, Transesophageal (ICD-10-PCS; principal; 2018-06-28)
DX: I48.0 Paroxysmal atrial fibrillation (principal); I70.0 Atherosclerosis of aorta; I08.1 Rheumatic disorders of both mitral and tricuspid valves; I10 Essential (primary) hypertension; E78.5 Hyperlipidemia, unspecified; I31.3 Pericardial effusion (noninflammatory); M19.042 Primary osteoarthritis, left hand; Z95.818 Presence of other cardiac implants and grafts; Z79.01 Long term (current) use of anticoagulants; Z79.899 Other long term (current) drug therapy; Z88.5 Allergy status to narcotic agent; Z95.0 Presence of cardiac pacemaker
CPT/HCPCS: 80048; 85025; 85610; 85730; 92960; 93005; 93010; 93312; 96374; J2704; J3010

== ENCOUNTER 2018-07-04 13:52 | Outpatient (CLI) | payer MEDICARE, OTHER ==
--- NOTE | 2018-07-04 15:36 | CT ---
CT OF THE LEFT WRIST WITHOUT IV CONTRAST: 07/04/18 INDICATION: History of left wrist injury. COMPARISON: Left wrist radiograph 06/28/18. FINDINGS: No acute fracture is evident. There is advanced osteoarthrosis involving the mid carpal joint, STT kimi int and first CMC joint. There are numerous subchondral cyst-like abnormalities present involving the carpal bones. There is chondrocalcinosis seen involving the hyaline cartilage. Distal radius and uln a appear within normal limits. There is diffuse osteopenia. Small ossific density is seen just dorsal to the capitellum which is suspicious for small intra-articular body or small carpal boss seen. This does not have the appearance of a fracture. IMPRESSION: 1. No definite acute fracture demonstrated. Advanced osteoarthrosis of the carpal bones. 2. 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 POS: ANITA
== END 2018-07-04 13:53 | disposition home or self-care (01) ==
LOC: SCSCT 13:52
PROVIDERS: ATTEND Orthopaedic Surgery Hand Surgery
DX: S52.502A Unspecified fracture of the lower end of left radius, initial encounter for closed fracture (principal); M19.032 Primary osteoarthritis, left wrist

== ENCOUNTER → 2018-10-18 | Day surgery (SDC) | payer MEDICARE, OTHER ==
[2018-10-17 11:36] VITALS: BMI 25.0
[~2018-10-18] MED LIST: Lidocaine 1% PF 5 ML VIAL ONE; PROPOFOL 200 MG/20 ML VIAL ONE
[2018-10-18 13:02] LABS: #Eosinphils 0.1 thou/uL (0.0-0.7); #Lymphocytes 1.3 thou/uL (1.20-3.40); #Monocytes 0.4 thou/uL (0.11-0.59); #Neutrophils 3.9 thou/uL (1.40-6.50); %Basophils 0.3 % (0.0-1.0); %Eosinophils 1.5 % (0.0-10.0); %Lymphocytes 22.9 % (21.0-51.0); %Monocytes 7.3 % (0.0-10.0); Hemoglobin 9.9 g/dL (12.0-16.0); Mean Corpuscular HGB CONC 32.1 g/dL (32.0-36.0); Mean Corpuscular Hemoglobin 28.5 pg (27.0-31.0); Mean Corpuscular Volume 88.6 fL (78.0-98.0); Mean Platelet Volume 7.2 fL (7.4-10.4); Platelet Count 265 thou/uL (130-400); Red Blood Cell (RBC) Count 3.47 mill/uL (4.20-5.40); White Blood Cell (WBC) Count 5.8 thou/uL (4.8-10.8)
[2018-10-18 13:10] LABS: INR-International Normal Ratio 1.7; PTT 36.6 SEC (22.9-36.1); Prothrombin Time 19.9 SEC (12.0-14.7)
[2018-10-18 13:40] LABS: Anion Gap 12 mmol/L (10-20); BUN (Urea Nitrogen) 20 mg/dL (9.8-20.1); Calc. Creatinine Clearance 41 mL/min (70-130); Calcium 9.3 mg/dL (7.8-10.44); Carbon Dioxide 22 mmol/L (23-31); Chloride 109 mmol/L (98-107); Estimated GFR-MDRD 48; Glucose 75 mg/dL (83-110); Potassium 3.9 mmol/L (3.5-5.1); Sodium 139 mmol/L (136-145)
--- NOTE | 2018-10-18 17:37 | ECHO ---
REFERRING PHYSICIAN: Dr. Woods; Dr. Liu REASON FOR PROCEDURE: The patient is a pleasant 72-year-old female with prior history of persistent atrial arrhymia, prior left atrial ablation in the past including left atrial appendage isolation, history of left atrial appendage clots in the past as well who underwent a Watchman procedure placement in April 2018. Had some residual leak on post implant RYANN adjacent to the device and now she is undergoing repeat RYANN three months after the initial check to evaluate current status. PROCEDURE: The patient received Propofol by Anesthesia specialist. The standard transesophageal echocardiogram probe was passed into the esophagus without difficulty. Patient tolerated the procedure well, no complications noted. RESULTS: Left atrium is well visualized and an adequately seated Watchman device is in position. Posterior to the Watchman device, significant amount of clot burden is noted. There is no significant flow identified adjacent to the Watchman device. The mitral valve has moderate regurgitation. The left atrial size is enlarged to a moderate degree of 4.3 cm in a horizontal diameter. The intra- atrial and interventricular septum is free of defects. Aortic valve has three leaflets. No stenosis, mild concentric regurgitation jet is noted. Tricuspid valve appears to be normal. Mild regurgitation. There is multiple wires in appropriate position in the right side of the heart. A CS wire noted. The pericardial space without significant effusion. The visualized portion of ascending and descending aorta without aneurysm, dissection or significant atheroma. CONCLUSION: 1. The left atrial appendage Watchman occluder device is in appropriate position and there is no significant leak documented adjacent to it. Clot burden is significant posterior to the Watchman device. 2. Normal left ventricular systolic function. LVEF about 55-60% noted. 3. Moderate mitral regurgitation. 4. Moderate left atrial enlargement. 5. Mild aortic and tricuspid regurgitation. 6. Appropriate positioned right sided pacemaker wires and CS pacemaker wire is noted. 7. No significant pericardial effusion. PLAN: At this point we will transition patient to aspirin, Plavix, from apixaban and would like to stop Plavix and just keep on aspirin after six months. MTDD
== END ==
LOC: CCL 11:35
PROVIDERS: ATTEND Internal Medicine Cardiovascular Disease
PROC: B24BZZ4 Ultrasonography of Heart with Aorta, Transesophageal (ICD-10-PCS; principal; 2018-10-18)
DX: I48.1 Persistent atrial fibrillation (principal); I08.3 Combined rheumatic disorders of mitral, aortic and tricuspid valves; Z79.01 Long term (current) use of anticoagulants; Z79.899 Other long term (current) drug therapy; Z88.5 Allergy status to narcotic agent; Z95.0 Presence of cardiac pacemaker; Z95.818 Presence of other cardiac implants and grafts; Z98.890 Other specified postprocedural states
CPT/HCPCS: 36415; 80048; 85025; 85610; 85730; 93005; 93010; 93312

== ENCOUNTER 2018-12-22 18:06 | Emergency (ER) | payer MEDICARE, OTHER ==
[2018-12-22 19:02] LABS: #Eosinphils 0.4 thou/uL (0.0-0.7); #Lymphocytes 1.6 thou/uL (1.20-3.40); #Monocytes 0.9 thou/uL (0.11-0.59); #Neutrophils 5.1 thou/uL (1.40-6.50); %Basophils 0.6 % (0.0-1.0); %Eosinophils 4.5 % (0.0-10.0); %Lymphocytes 19.5 % (21.0-51.0); %Monocytes 11.7 % (0.0-10.0); %Neutrophils 63.8 % (42.0-75.0); Hemoglobin 9.2 g/dL (12.0-16.0); Mean Corpuscular HGB CONC 32.1 g/dL (32.0-36.0); Mean Corpuscular Hemoglobin 27.7 pg (27.0-31.0); Mean Corpuscular Volume 86.5 fL (78.0-98.0); Mean Platelet Volume 6.3 fL (7.4-10.4); Platelet Count 208 thou/uL (130-400); Red Blood Cell (RBC) Count 3.33 mill/uL (4.20-5.40)
== END 2018-12-22 19:34 | disposition home or self-care (01) ==
LOC: SCSER 18:06
DX: I97.621 Postprocedural hematoma of a circulatory system organ or structure following other procedure (principal); I97.620 Postprocedural hemorrhage of a circulatory system organ or structure following other procedure; I49.9 Cardiac arrhythmia, unspecified; I48.91 Unspecified atrial fibrillation; I10 Essential (primary) hypertension; Z79.01 Long term (current) use of anticoagulants
CPT/HCPCS: 36415; 85025; 99283

== ENCOUNTER 2018-12-23 12:29 | Emergency (ER) | payer MEDICARE, OTHER ==
[2018-12-23] MEDS ORDERED: Fentanyl 100 MCG/2 ML VIAL ONE (13:02)
[2018-12-23 13:27] LABS: #Eosinphils 0.3 thou/uL (0.0-0.7); #Lymphocytes 1.2 thou/uL (1.20-3.40); #Monocytes 0.8 thou/uL (0.11-0.59); #Neutrophils 5.5 thou/uL (1.40-6.50); %Basophils 0.4 % (0.0-1.0); %Lymphocytes 15.2 % (21.0-51.0); %Monocytes 9.6 % (0.0-10.0); %Neutrophils 70.8 % (42.0-75.0); Hemoglobin 10.3 g/dL (12.0-16.0); Mean Corpuscular Hemoglobin 28.1 pg (27.0-31.0); Mean Corpuscular Volume 87.7 fL (78.0-98.0); Mean Platelet Volume 7.4 fL (7.4-10.4); Platelet Count 238 thou/uL (130-400); RBC Distribution Width 15.3 % (11.5-14.5); Red Blood Cell (RBC) Count 3.65 mill/uL (4.20-5.40); White Blood Cell (WBC) Count 7.8 thou/uL (4.8-10.8)
[2018-12-23 13:44] LABS: Anion Gap 15 mmol/L (10-20); BUN (Urea Nitrogen) 20 mg/dL (9.8-20.1); Calc. Creatinine Clearance 0 mL/min (70-130); Calcium 9.2 mg/dL (7.8-10.44); Carbon Dioxide 25 mmol/L (23-31); Chloride 103 mmol/L (98-107); Estimated GFR-MDRD 44; Glucose 92 mg/dL (83-110); Potassium 4.5 mmol/L (3.5-5.1); Sodium 138 mmol/L (136-145)
--- NOTE | 2018-12-23 14:15 | ULT ---
ULTRASOUND DOPPLER DUPLEX VENOUS RIGHT UPPER EXTREMITY: DATE: 12/23/2018 HISTORY: 73-year-old female with right upper extremity edema, erythema, and pain. TECHNIQUE: Grayscale, color-flow, and spectral analysis, of the right internal jugular, subclavian, axillary, br achial, basilic, cephalic, radial, and ulnar, veins. Compression and release applied to all veins except the subclavian vein. FINDINGS: There is demonstration of blood flow in all interrogated veins. There is normal compressibility of al l veins accessible by compression. IMPRESSION: Negative. No deep venous thrombosis of right upper extremity.
[2018-12-23 14:49] LABS: Bilirubin Negative (Negative); Blood, Urine Negative (Negative); Clarity Clear (Clear); Glucose, Urine (Dipstick) Normal (Negative); Leukocyte Negative Leu/uL (Negative); Nitrite Negative (Negative); Protein, Urine (Dipstick) Negative (Neg-Trace); Urobilinogen Normal mg/dL (Less than 2)
--- NOTE | 2018-12-23 16:09 | ULT ---
Ultrasound Doppler duplex arterial right upper extremity limited: DATE: 12/23/2018 HISTORY: 73-year-old female with right arm edema, erythema, and pain after catheter angiogram via brachial art anton. Rule out pseudoaneurysm. TECHNIQUE: Grayscale, color-flow, and spectral analysis, of right brachial artery. FINDINGS: The brachial artery is normal in caliber and has normal pulsatile flow. Very close to the brachial ar sami, medial to it, there is a 3.5 x 0.9 x1 cm well-circumscribed mass with mixed hypoechoic, and intermediate echogenicity internal contents. It is noncompressible and has no internal blood flow ins erted by Doppler. Its edge is approximately 0.1 to 0.2 cm from the adjacent brachial artery. IMPRESSION: 1. Mass in the right arm adjacent to the brachial artery is a hematoma. It could be a thrombosed pseu doaneurysm. 2. Currently there is no patent pseudoaneurysm.
== END 2018-12-23 17:55 | disposition home or self-care (01) ==
LOC: ERS 12:29
DX: M79.89 Other specified soft tissue disorders (principal); I48.91 Unspecified atrial fibrillation; I10 Essential (primary) hypertension
CPT/HCPCS: 80048; 81003; 85025; 93923; 96374; J3010

== ENCOUNTER 2019-01-01 09:58 | Outpatient (CLI) | payer MEDICARE, OTHER ==
[2019-01-01] MEDS ORDERED: Lidocaine 2% PF 100 mg/5 ml Syringe ONE (15:00)
[2019-01-01] MEDS ORDERED: Sodium Chloride 0.9% 15 ML NEB ONE (15:00)
--- NOTE | 2019-01-01 16:23 | HP ---
HISTORY OF PRESENT ILLNESS: Ms. Courtney Barney is a very pleasant 73-year- old accompanied by her lalytnui-[id number]-tpn, who presents to [facility] for evaluation of a wound over the dorsum of her left hand. The patient states that on 2018, she was seen in the emergency department. She states that when her IV secured with Tegaderm was discontinued, she suffered a skin tear. She states that her wound was dressed with gauze followed by Coban. The patient began performing dressing changes of Bactroban followed by Telfa and Coban for the wound over the dorsum of her left hand. She states that later she began using Neosporin in lieu of Bactroban. The patient was seen by her primary care physician 3 days ago, and at this time, referred to the Wound Center for further evaluation and treatment. Also with this time, the patient was placed on a course of Keflex. The patient reports increasing erythema of the skin surrounding her wound. She also reports pain over the dorsum of her left hand with dorsiflexion. PAST MEDICAL HISTORY: 1. History of recurrent paroxysmal atrial fibrillation/flutter, status post multiple ablations. 2. History of irritable bowel syndrome. 3. Hypertension. 4. Aortic valve insufficiency. 5. DJD. 6. History of recurrent syncope. 7. Congestive heart failure. 8. Left atrial appendage thrombus. 9. History of rheumatic fever. PAST SURGICAL HISTORY: 1. Right foot surgery. 2. Pacemaker placement x2. 3. Pericardial window. MEDICATIONS: 1. Cephalexin. 2. Multaq. 3. Eliquis. 4. Mirapex. 5. Crestor. 6. Tramadol. 7. Lasix. 8. Potassium. 9. Iron. 10. Multivitamin. ALLERGIES: MORPHINE. SOCIAL HISTORY: Negative for tobacco or EtOH use since the age of 17. FAMILY HISTORY: Family history is negative for diabetes mellitus or coronary artery disease. PHYSICAL EXAMINATION: VITAL SIGNS: Temperature 97.6, pulse 112, respirations 20, blood pressure 145/ 79. GENERAL: A 73-year-old female sitting on chair in examination room, in no acute distress. HEENT: Normocephalic and atraumatic. NECK: No nuchal rigidity. CHEST: Clear to auscultation. CV: Regular rate and rhythm. ABDOMEN: Soft. EXTREMITIES: A full-thickness ulceration over the dorsum of the left hand is present, which measures approximately 1.5 x 2.8 x 0.1 cm. Granulation tissue is present within the wound margins. Moderate serous drainage is associated with the wound. Erythema of the skin surrounding the wound is present. No maceration of the skin of the periwound is noted. NEUROLOGIC: Grossly nonfocal. ASSESSMENT AND PLAN: 1. Ulceration over dorsum of left hand as described above. Dressing changes of Oscar, followed by Cristhian will be initiated today. These dressing changes are to be performed 3 times per week after cleansing and irrigation. The patient's aabbkeec-jd-sun states she will assist Ms. Barney with her dressing changes. Arrangements will be made for the home delivery of dressing supplies. The patient has been reminded to continue Keflex as previously prescribed. I will see Ms. Barney again in 1 week. The patient and her daughter in-law understands and are in agreement with the preceding treatment plan. 2. History of recurrent paroxysmal atrial fibrillation/flutter, status post multiple ablations. 3. History of irritable bowel syndrome. 4. Hypertension. 5. Aortic valve insufficiency. 6. Degenerative joint disease. 7. History of recurrent syncope. 8. Congestive heart failure. 9. Left atrial appendage thrombus. 10. History of rheumatic fever. Job ID: [id number] [facility]
== END 2019-01-01 09:59 | disposition home or self-care (01) ==
LOC: WCC 09:58
PROVIDERS: ATTEND Family Medicine
DX: L98.499 Non-pressure chronic ulcer of skin of other sites with unspecified severity (principal); I11.0 Hypertensive heart disease with heart failure; I50.9 Heart failure, unspecified; I35.1 Nonrheumatic aortic (valve) insufficiency; M19.90 Unspecified osteoarthritis, unspecified site; I51.3 Intracardiac thrombosis, not elsewhere classified; Z86.19 Personal history of other infectious and parasitic diseases; Z86.79 Personal history of other diseases of the circulatory system
CPT/HCPCS: A4218; J2001

== ENCOUNTER 2019-01-08 10:03 | Outpatient (CLI) | payer MEDICARE, OTHER ==
[2019-01-08] MEDS ORDERED: Sodium Chloride 0.9% 15 ML NEB ONE (11:11)
[2019-01-08] MEDS ORDERED: Lidocaine 2% PF 100 mg/5 ml Syringe ONE (11:11)
--- NOTE | 2019-01-08 11:51 | PRG ---
DATE OF SERVICE: HISTORY: Ms. Courtney Barney is a very pleasant 73-year-old accompanied by her uxkczfhy-im-bre, who presents to the [facility]ound Center for evaluation of a wound over the dorsum of her left hand. The patient previously stated that on 12/23/2018, she was seen in the emergency department. She stated that when her IV secured with Tegaderm was discontinued, she suffered a skin tear. She stated that her wound was dressed with gauze followed by Coban. The patient began performing dressing changes of Bactroban followed by Telfa and Coban for the wound over the dorsum of her left hand. She stated that she later began using Neosporin in lieu of Bactroban. The patient was seen by her primary care physician 3 days prior to her initial visit to the Wound Center, and at this time the patient was referred to the Wound Center for further evaluation and treatment. Also at this time, the patient was placed on a course of Keflex. When the patient presented to the Wound Center, she reported increasing erythema of the skin surrounding her wound. She also reported pain over the dorsum of her left hand with dorsiflexion. PHYSICAL EXAMINATION: VITAL SIGNS: Temperature 97.6, pulse 103, respirations 16, blood pressure 139/67. EXTREMITIES: An ulceration over the dorsum of the left hand is present which measures approximately 1.0 x 0.7 cm. The dimensions of the wound at the time of the patient's last visit were approximately 1.5 x 2.8 cm. Granulation tissue is present within the wound margins. No purulent drainage is associated with the wound. No erythema of the skin surrounding the wound is present. No maceration of the skin of the periwound is noted. ASSESSMENT AND PLAN: 1. Ulceration over dorsum of left hand as described above. Dressing changes of Medihoney followed by Cristhian will be continued 3 times per week after cleansing and irrigation. The patient's daughter states that she will continue to assist Ms. Barney with her dressing changes. Arrangements were previously made for the home delivery of dressing supplies. The wound has markedly improved in its appearance since the patient's last visit. I will see Ms. Barney again in 1 week if her wound is still present at this time. 2. History of recurrent paroxysmal atrial fibrillation/flutter, status post multiple ablations. 3. History of irritable bowel syndrome. 4. Hypertension. 5. Aortic valve insufficiency. 6. Degenerative joint disease. 7. History of recurrent syncope. 8. Congestive heart failure. 9. Left atrial appendage thrombus. 10. History of rheumatic fever. Job ID: [id number]
== END 2019-01-08 10:04 | disposition home or self-care (01) ==
LOC: WCC 10:03
PROVIDERS: ATTEND Family Medicine
DX: L98.499 Non-pressure chronic ulcer of skin of other sites with unspecified severity (principal); I35.1 Nonrheumatic aortic (valve) insufficiency; M19.90 Unspecified osteoarthritis, unspecified site; I11.0 Hypertensive heart disease with heart failure; I23.6 Thrombosis of atrium, auricular appendage, and ventricle as current complications following acute myocardial infarction; Z86.19 Personal history of other infectious and parasitic diseases; Z86.79 Personal history of other diseases of the circulatory system; Z87.19 Personal history of other diseases of the digestive system
CPT/HCPCS: A4218; J2001

== ENCOUNTER 2019-01-15 10:33 | Outpatient (CLI) | payer MEDICARE, OTHER ==
--- NOTE | 2019-01-15 11:35 | PRG ---
DATE OF SERVICE: 01/15/2019 HISTORY: Ms. Courtney Barney is a very pleasant 73-year-old, who presents to the wound center for evaluation of a wound over the dorsum of her left hand. The patient previously stated that on 12/23/2018, she was seen in the emergency department. She stated that when her IV secured with Tegaderm was discontinued, she suffered a skin tear. She stated that her wound was dressed with gauze followed by Coban. The patient began performing dressing changes of Bactroban followed by Telfa and Coban for the wound over the dorsum of her left hand. She stated that she later began using Neosporin in lieu of Bactroban. The patient was seen by her primary care physician 3 days prior to her initial visit to the wound center, and at this time, the patient was referred to the wound center for further evaluation and treatment. Also, at this time, the patient was placed on a course of Keflex. When the patient presented to the wound center, she reported increasing erythema of the skin surrounding her wound. She also reported pain over the dorsum of her left hand with dorsiflexion. PHYSICAL EXAMINATION: VITAL SIGNS: Pulse 94, respirations 19, and blood pressure 140/66. EXTREMITIES: The ulceration over the dorsum of the left hand has healed completely. ASSESSMENT AND PLAN: 1. Ulceration over dorsum of left hand. As stated above, the ulceration has completely healed. Ms. Barney will be discharged from clinic today with followup on a p.r.n. basis. 2. History of recurrent paroxysmal atrial fibrillation/flutter, status post multiple ablations. 3. History of irritable bowel syndrome. 4. Hypertension. 5. Aortic valve insufficiency. 6. Degenerative joint disease. 7. History of recurrent syncope. 8. Congestive heart failure. 9. Left atrial appendage thrombus. 10. History of rheumatic fever. Job ID: [id number]
== END 2019-01-15 10:34 | disposition home or self-care (01) ==
LOC: WCC 10:33
PROVIDERS: ATTEND Family Medicine
DX: L98.499 Non-pressure chronic ulcer of skin of other sites with unspecified severity (principal); I11.0 Hypertensive heart disease with heart failure; M19.90 Unspecified osteoarthritis, unspecified site; I50.9 Heart failure, unspecified; I23.6 Thrombosis of atrium, auricular appendage, and ventricle as current complications following acute myocardial infarction
CPT/HCPCS: 97602

== ENCOUNTER 2019-02-21 05:52 | Day surgery (SDC) | payer MEDICARE, OTHER ==
[2019-02-20 09:54] VITALS: BMI 24.6
[2019-02-21 06:57] LABS: #Eosinphils 0.2 thou/uL (0.0-0.7); #Lymphocytes 1.4 thou/uL (1.20-3.40); #Monocytes 0.6 thou/uL (0.11-0.59); #Neutrophils 3.6 thou/uL (1.40-6.50); %Basophils 0.7 % (0.0-1.0); %Eosinophils 2.7 % (0.0-10.0); %Lymphocytes 24.2 % (21.0-51.0); %Monocytes 9.9 % (0.0-10.0); %Neutrophils 62.6 % (42.0-75.0); Hemoglobin 10.2 g/dL (12.0-16.0); Mean Corpuscular HGB CONC 33.2 g/dL (32.0-36.0); Mean Corpuscular Hemoglobin 29.2 pg (27.0-31.0); Mean Platelet Volume 7.2 fL (7.4-10.4); Platelet Count 206 thou/uL (130-400); RBC Distribution Width 15.5 % (11.5-14.5); Red Blood Cell (RBC) Count 3.49 mill/uL (4.20-5.40); White Blood Cell (WBC) Count 5.8 thou/uL (4.8-10.8)
[2019-02-21 07:00] LABS: INR-International Normal Ratio 1.8
[2019-02-21 07:11] LABS: Anion Gap 10 mmol/L (10-20); BUN (Urea Nitrogen) 19 mg/dL (9.8-20.1); Calc. Creatinine Clearance 44 mL/min (70-130); Carbon Dioxide 25 mmol/L (23-31); Chloride 109 mmol/L (98-107); Estimated GFR-MDRD 53; Potassium 3.8 mmol/L (3.5-5.1); Sodium 140 mmol/L (136-145)
[2019-02-21 07:12] LABS: Calcium 9.1 mg/dL (7.8-10.44); Glucose 89 mg/dL (83-110)
[2019-02-21] MEDS ORDERED: Pramipexole Di-HCl 0.25 MG TAB PO SCH (09:00)
--- NOTE | 2019-02-21 21:15 | ECHO ---
REFERRING PHYSICIAN: Dr. Griffin Liu and Dr. Carlos Woods REASON FOR PROCEDURE: The patient is a 73-year-old female with prior history of atrial fibrillation. She underwent a ------ - procedure ------- with Multaq. She had severe bruising and underwent Watchman device closure back i n 04/2018 and a coil closure in 12/19/18. Here for follow-up RYANN. PROCEDURE: The patient received Propofol by Anesthesia specialist. After adequate level of sedation achieved, a standard transesophageal echocardiogram probe was passed into the esophagus without diff iculty. Patient tolerated the procedure well, no complications noted. RESULTS: Left atrium is mildly enlarged. The left atrial appendage well visualized and an appropriately posit ioned Watchman device is in place. The posterior arterial device, there is significant amount of clot burden seen with small echo lucency only. Color flow interrogation does reveal a 0.2 cm diameter chayito k noted behind the device adjacent to the left superior pulmonary vein. Four out of four pulmonary veins were well visualized. The mitral valve has mild regurgitation. The aortic valve has three leaflets with mild regurgitation. Mild tricuspid regurgitation also noted. Th e pulmonary valve is not well visualized but appears to be normal. Pacemaker wires in the right sided chambers in appropriate positions. Left ventricular systolic function is preserved. No pericardial e ffusion noted. I did not visualize the residual flow at the transseptal puncture. The visualized port ion of ascending and descending aorta without aneurysm, dissection or significant atheroma. CONCLUSION: 1. Adequately positioned Watchman device with tiny 0.2 cm residual flow as detailed above. 2. Normal left ventricular systolic function. 3. Mild MR, TR and AI. 4. Mild left atrial enlargement. 5. Pacemaker wires in the right sided chambers. PLAN: Likely transition to aspirin and Plavix. We will send reports to Dr. Liu the attending physician f or final review.
--- NOTE | 2019-02-22 17:06 | EKG ---
Test Reason : PREOP Blood Pressure : / mmHG Vent. Rate : 072 BPM Atrial Rate : 072 BPM P-R Int : 152 ms QRS Dur : 130 ms QT Int : 472 ms P-R-T Axes : 087 076 057 degrees QTc Int : 516 ms AV sequential or dual chamber electronic pacemaker When compared with ECG of 18-OCT-2018 12:13, (Unconfirmed) No significant change was found Confirmed by AMELIA VALENCIA ([id number]) on 02/22/2019 5:06:38 PM Referred By: ALINE Confirmed By:AMELIA VALENCIA
== END 2019-02-21 09:53 | disposition home or self-care (01) ==
LOC: CCL 05:52
PROVIDERS: ATTEND Internal Medicine Cardiovascular Disease
PROC: B24BZZ4 Ultrasonography of Heart with Aorta, Transesophageal (ICD-10-PCS; principal; 2019-02-21)
DX: I48.1 Persistent atrial fibrillation (principal); I08.3 Combined rheumatic disorders of mitral, aortic and tricuspid valves; I10 Essential (primary) hypertension; Z79.01 Long term (current) use of anticoagulants; Z79.899 Other long term (current) drug therapy; Z88.5 Allergy status to narcotic agent; Z95.0 Presence of cardiac pacemaker; Z95.818 Presence of other cardiac implants and grafts
CPT/HCPCS: 36415; 80048; 85025; 85610; 85730; 93005; 93010; 93312

== ENCOUNTER 2019-07-17 05:59 | Observation (INO) | payer MEDICARE, OTHER ==
[2019-07-17] MEDS ORDERED: Fentanyl 100 MCG/2 ML VIAL ONE (06:26)
[2019-07-17] MEDS ORDERED: Heparin (Artline) 1,500 ML ONE (06:30)
[2019-07-17] MEDS ORDERED: Heparin 10,000 UNITS/1 ML VIAL ONE ×2 (06:30→09:03)
[2019-07-17 07:05] LABS: #Eosinphils 0.2 thou/uL (0.0-0.7); #Lymphocytes 1.9 thou/uL (1.20-3.40); #Monocytes 0.7 thou/uL (0.11-0.59); #Neutrophils 5.5 thou/uL (1.40-6.50); %Basophils 0.5 % (0.0-1.0); %Eosinophils 2.4 % (0.0-10.0); %Lymphocytes 22.5 % (21.0-51.0); %Monocytes 7.9 % (0.0-10.0); %Neutrophils 66.8 % (42.0-75.0); Hemoglobin 11.6 g/dL (12.0-16.0); Mean Corpuscular Hemoglobin 31.2 pg (27.0-31.0); Mean Corpuscular Volume 94.6 fL (78.0-98.0); Mean Platelet Volume 8.1 fL (7.4-10.4); Platelet Count 201 thou/uL (130-400); RBC Distribution Width 13.8 % (11.5-14.5); White Blood Cell (WBC) Count 8.2 thou/uL (4.8-10.8)
[2019-07-17 07:10] LABS: INR-International Normal Ratio 1.6; PTT 34.6 SEC (22.9-36.1); Prothrombin Time 19.2 SEC (12.0-14.7)
[2019-07-17 07:24] LABS: Anion Gap 12 mmol/L (10-20); BUN (Urea Nitrogen) 24 mg/dL (9.8-20.1); Calc. Creatinine Clearance 0 mL/min (70-130); Calcium 9.1 mg/dL (7.8-10.44); Carbon Dioxide 24 mmol/L (23-31); Chloride 107 mmol/L (98-107); Estimated GFR-MDRD 38; Glucose 100 mg/dL (83-110); Potassium 3.7 mmol/L (3.5-5.1); Sodium 139 mmol/L (136-145)
[2019-07-17] MEDS ORDERED: Isoproterenol 0.2 MG/1 ML AMP ONE (09:04)
[2019-07-17] MEDS ORDERED: Phenylephrine HCL 10 MG/ML VIAL ONE (10:21)
[2019-07-17] MEDS ORDERED: Lidocaine 1% PF 5 ML VIAL ONE (10:31)
[2019-07-17] MEDS ORDERED: PHENYLEPHRINE-NS 100 MCG/ML 10 ML SYRINGE ONE (10:31)
[2019-07-17] MEDS ORDERED: PROPOFOL 200 MG/20 ML VIAL ONE (10:31)
[2019-07-17] MEDS ORDERED: Ondansetron PF 4 MG/2 ML Vial ONE (10:31)
[2019-07-17] MEDS ORDERED: Rocuronium Bromide 10 MG/ML (10ML VIAL) ONE (10:31)
[2019-07-17] MEDS ORDERED: Dexamethasone 20 MG/5 ML VIAL ONE (10:31)
[2019-07-17] MEDS ORDERED: Succinylcholine Chloride 20 MG/ML 10 ml SYRINGE FS ONE (10:31)
[2019-07-17] MEDS ORDERED: SUGAMMADEX SODIUM 200 MG/2 ML VIAL ONE (11:06)
[2019-07-17] MEDS ORDERED: Protamine Sulfate 50 MG/5 ML VIAL ONE (11:43)
[2019-07-17] MEDS ORDERED: Acetaminophen 500 MG TAB PO PRN (12:17)
[2019-07-17] MEDS ORDERED: Furosemide 40 MG TAB PO PRN (12:21)
[2019-07-17] MEDS ORDERED: Potassium Chloride 20 MEQ TAB PO PRN (12:22)
[2019-07-17 16:11] VITALS: BMI 23.2
--- NOTE | 2019-07-17 17:16 | OP ---
DATE OF PROCEDURE: 07/17/2019 PROCEDURE PERFORMED: Comprehensive electrophysiology testing with 3D mapping and ablation of atrial fibrillation. CLINICAL INDICATION: AFib, previously ablated; status post Watchman in the past; status post pacemaker in the past. ASA CLASSIFICATION: 3. ANESTHESIA: General endotracheal anesthesia per Anesthesiology. ADDITIONAL CARDIAC MEDICATION: Isoproterenol 10 mcg/min infusion. TOTAL HEPARIN GIVEN: 12,000 units. TOTAL PROTAMINE GIVEN: 40 mg. ACUTE COMPLICATIONS: None apparent. METHODS: After informed consent was obtained, the patient was taken to the EP lab in a fasting state. Both groins were prepped and draped using ultrasound guidance. The right and left femoral veins were accessed and wires were inserted into the central venous system. The wires were used to place an 11- and 8-Eritrean sheath in the left groin, two 8-Eritrean sheaths in the right groin. All 8-Eritrean sheaths were then replaced by long sheaths for catheter stability. A circular and ablation catheter was placed in right groin and advanced up to the right atrium. A 3D map was obtained to the right atrium and coronary sinus. An echo probe was placed in the left groin, advanced up to the right atrium and the right ventricle for imaging. A 20-pole catheter was placed in left groin, advanced up to the coronary sinus and the right atrium. The patient was then fully anticoagulated. Transseptal catheterization was performed on 2 occasions using the 3D mapping guidance along with the intracardiac echo. Care was taken to observe the position of the right atrial lead prior to and during the right atrial mapping and transseptal catheterization. A temperature probe was placed in the esophagus. This was used to monitor temperatures on the posterior wall of left atrium. A 3D map was obtained in the left atrium and there were evidence of fractionated potentials on the septum of the left atrium. These were ablated. Catheters then were withdrawn to the right atrium and ablation was delivered isolating the right atrial appendage and the lateral florian area and the roof with care made to avoid delivering energy to close to the position of the distal electrodes on the right atrial lead. At the conclusion of the procedure, cardioversion was performed. No other arrhythmias were seen and catheters were withdrawn using ultrasound guidance. Sheath was then pulled. Hemostasis was achieved with suture and collagen closure. RESULTS: 1. Baseline intervals; HV interval 50 msec. The patient was in atrial fibrillation at the beginning of the procedure. 2. Atrial function. The patient was in coarse atrial fibrillation. Pulmonary veins and posterior wall of left atrium had already been isolated from the previous ablation. Extensive ablation was performed primarily in the right atrium and the interatrial septum to treat the patient's atrial fibrillation. IMPRESSION: 1. Successful pulmonary vein antral isolation with extensive right atrial lesions and left atrial septal lesions. 2. No evidence of significant dislodgement of the right atrial lead was seen during the procedure. RECOMMENDATION: 23-hour observation. Job ID: [id number]
[2019-07-17] MEDS: Apixaban 5 MG TAB PO SCH (20:58)
[2019-07-17] MEDS ORDERED: Pramipexole Di-HCl 0.25 MG TAB PO SCH (21:00)
[2019-07-17] MEDS ORDERED: Rosuvastatin 5 MG TAB PO SCH (21:00)
[2019-07-18] MEDS ORDERED: Pramipexole Di-HCl 0.25 MG TAB PO SCH (00:45)
[2019-07-18] MEDS: Apixaban 5 MG TAB PO SCH (10:21)
[2019-07-18 12:34] VITALS: BP 108/55; TEMP 97.9
--- NOTE | 2019-07-19 01:26 | DIS ---
DATE OF ADMISSION: 07/17/2019 DATE OF DISCHARGE: 07/18/2019 The patient was under 24-hour observation. PROCEDURES PERFORMED: Include comprehensive electrophysiology testing with 3D mapping and ablation of atrial fibrillation. Successful pulmonary vein antral isolation with extensive right atrial lesions and left atrial septal lesions. Pulmonary veins and posterior wall of the left atrium remained isolated from previous ablations. HISTORY OF PRESENT ILLNESS: Ms. Barney is a pleasant 73-year-old woman with a history of persistent atrial fibrillation with multiple prior ablations. Her most recent redo ablation for atrial fibrillation was in November of 2018. Despite this , she has required Multaq for suppression of atrial arrhythmias, which are refractory to her antiarrhythmic therapy now. She was symptomatic and was taken to the EP lab for a redo ablation. Her left atrium required minimal ablation along the left atrial septum. Most of the ablation was performed in the right atrium, and she was kept overnight for observation. She is feeling well this morning. She is not having any heart racing, palpitations, chest pain, pressure, syncope, near-syncope, stroke , or stroke-like symptoms. She does report some tenderness at her groin sites and some minimal oozing that has required sandbag overnight, mostly to her right access site. Left access site was closed with a V[place], but does appear to have some superficial skin oozing as well. SUBJECTIVE: review of systems is negative except that listed above in the HPI. OBJECTIVE: VITAL SIGNS: Temperature 97.9, pulse 94, blood pressure 105/55, and respirations 16. GENERAL: The patient is alert, oriented. Speech is clear. Affect is appropriate. NEUROLOGIC: Grossly intact. Gait is steady. Neuro exam is nonfocal. HEART: Rate is with a crisp S1 and S2. PMI is nondisplaced. LUNGS: Clear to auscultation bilaterally. Respirations are even and unlabored. ABDOMEN: Soft, nontender. Hepatojugular reflux is negative without palpable masses. EXTREMITIES: Warm and dry to touch, well perfused without clubbing, cyanosis, or edema. She has strong peripheral pulses. The right femoral vein access site does show some slight oozing despite recent bandage change. The groin site is soft. There is no evidence of hematoma formation or significant tenderness, bruising, or discoloration. This appears to be a superficial skin ooze. There is also a slight ooze on the left side. [employer] came up and put Dermabond over the oozing site, which has helped to stop the bleed. LABORATORY DATA: Telemetry shows sequential AV pacing and sinus rhythm with heart rates between 80 and 90 beats per minute. IMPRESSION: 1. Persistent atrial arrhythmias requiring multiple ablations, status post redo ablation, largely in the right atrium but also some along the left atrial septum , now in sinus rhythm without Multaq. 2. Left atrial appendage closure with Watchman, restarted on Eliquis for recent ablation. 3. Diastolic heart failure. 4. Tendency for hypotension. DISCHARGE MEDICATIONS: Resuming home medications of, 1. Crestor 5 mg q.a.m. 2. Mirapex 0.5 mg at bedtime. 3. Metoprolol succinate 25 mg p.o. b.i.d. 4. Eliquis 5 mg p.o. b.i.d. 5. Tylenol as needed. New prescriptions supplied for, 1. Protonix 40 mg daily x30 days. 2. Carafate 1 g q.i.d. x2 weeks. 3. Lasix 40 mg p.o. p.r.n. shortness of breath to be taken with 20 mEq of potassium. CONDITION AT DISCHARGE: Stable. FOLLOWUP AND DISCHARGE INSTRUCTIONS: No lifting more than 10 pounds. No soaking baths for one week. Follow up in six weeks or sooner if symptoms dictate. Contact [facility] with any postablation questions. The patient's superficial slight skin ooze from bilateral groin sites has stopped prior to discharge. There is no evidence of hematoma or RPB. I suspect that with resuming therapy with Eliquis that her superficial bleeding was just difficult to stop. The patient will contact our office with any concerns from her current bleeding issues. I will have her stop Multaq. She is maintaining sinus rhythm and is AV pacing with her [employer] COUNSEL[employer] device. If early recurrence is seen, we will instruct her to resume her Multaq. Job ID: [id number] [facility]
== END 2019-07-18 15:42 | disposition home or self-care (01) ==
LOC: CCL 05:59 → 2SW 14:28
PROVIDERS: ADMIT Internal Medicine Cardiovascular Disease; ATTEND Internal Medicine Cardiovascular Disease
PROC: 02583ZZ Destruction of Conduction Mechanism, Percutaneous Approach (ICD-10-PCS; principal; 2019-07-17)
PROC: 4A023FZ Measurement of Cardiac Rhythm, Percutaneous Approach (ICD-10-PCS; 2019-07-17)
PROC: 02K83ZZ Map Conduction Mechanism, Percutaneous Approach (ICD-10-PCS; 2019-07-17)
DX: I48.19 Other persistent atrial fibrillation (principal); I11.0 Hypertensive heart disease with heart failure; I50.30 Unspecified diastolic (congestive) heart failure; Z79.01 Long term (current) use of anticoagulants; Z79.82 Long term (current) use of aspirin; Z79.899 Other long term (current) drug therapy; Z88.5 Allergy status to narcotic agent; Z91.048 Other nonmedicinal substance allergy status; Z95.0 Presence of cardiac pacemaker; Z95.818 Presence of other cardiac implants and grafts; Z98.890 Other specified postprocedural states
CPT/HCPCS: 76942; 80048; 85025; 85347 ×2; 85610; 85730; 92960; 93005 ×2; 93613; 93623; 93656; 93662; C1731; C1732 ×2; C1759; C1760; C1769; G0378 ×2; 36415; 93010; J1100; J1644; J2001; J2370; J2405; J2704; J2720; J3010

== ENCOUNTER 2019-07-27 10:40 | Observation (INO) | payer MEDICARE, OTHER ==
[2019-07-27 11:18] LABS: #Basophils 0.1 thou/uL (0.0-0.2); #Eosinphils 0.2 thou/uL (0.0-0.7); #Lymphocytes 1.8 thou/uL (1.20-3.40); #Monocytes 0.7 thou/uL (0.11-0.59); #Neutrophils 5.8 thou/uL (1.40-6.50); %Eosinophils 2.4 % (0.0-10.0); %Lymphocytes 20.7 % (21.0-51.0); Mean Corpuscular HGB CONC 32.4 g/dL (32.0-36.0); Mean Corpuscular Hemoglobin 30.9 pg (27.0-31.0); Mean Corpuscular Volume 95.2 fL (78.0-98.0); Mean Platelet Volume 7.4 fL (7.4-10.4); Platelet Count 261 thou/uL (130-400); RBC Distribution Width 13.5 % (11.5-14.5); White Blood Cell (WBC) Count 8.6 thou/uL (4.8-10.8)
--- NOTE | 2019-07-27 11:26 | RAD ---
Exam: Chest one view HISTORY:Chest pain Comparison: 04/07/2018 FINDINGS: Cardiac silhouette:Artery megaly. Interval coiling of the left atrial appendage. Stable left-sided tr ansvenous defibrillator with lead positioned over the right atrium and right ventricle. Interval placement of a new lead that terminates in the coronary sinus. Aorta: Unremarkable Pulmonary vessels: Normal Costophrenic angles: Clear LUNGS: No masses or consolidation. Chronic lung parenchymal changes are noted. Pneumothorax: None Osseous abnormalities: None IMPRESSION: 1. Chronic lung parenchymal changes. No acute cardiopulmonary process.
[2019-07-27 12:02] LABS: AST (SGOT) 40 U/L (5-34); Bilirubin, Total 0.6 mg/dL (0.2-1.2); Calcium 9.3 mg/dL (7.8-10.44); Chloride 102 mmol/L (98-107); Potassium 3.9 mmol/L (3.5-5.1); Sodium 140 mmol/L (136-145)
--- NOTE | 2019-07-27 12:09 | ULT ---
US Venous Doppler Bilat HISTORY: Bilateral leg pain and swelling. Recent catheterization. COMPARISON: None. FINDINGS: Real-time color Doppler evaluation the right and left lower extremities were performed from groin to calf. This includes evaluation the common femoral superficial profundofemoral, saphenous, popliteal and posterior tibial veins. This shows normal compressibility and augmentation. There is no evidence of DVT. IMPRESSION: No evidence of DVT of either lower extremity
[2019-07-27 12:10] LABS: CKMB 0.5 ng/mL (0-6.6)
[2019-07-27 12:13] LABS: Albumin 4.3 g/dL (3.4-4.8)
--- NOTE | 2019-07-27 12:14 | ULT ---
US Gallbladder RUQ History: Right upper quadrant pain Comparison: Ultrasound 2018 Findings: Real-time grayscale and color evaluation right upper quadrant of the abdomen was performed. Visualized portion of the aorta, IVC, and pancreas are unremarkable. Normal hepatic echotexture. Chol elithiasis and gallbladder debris. No pericholecystic inflammation. Gallbladder wall thickness is normal. Portal vein measures up to 1.6 cm size. The common bile duct is normal. Right kidney measures 9.7 x 3.5 x 3.7 cm without mass, hydronephrosis, or abnormal calcifications. Impression: Cholelithiasis and gallbladder sludge within the gallbladder fundus without evidence of a cute cholecystitis. No evidence for acute biliary obstruction.
[2019-07-27 12:15] LABS: Globulin 3.4 g/dL (2.4-3.5); Glucose 96 mg/dL (83-110); Protein, Total 7.7 g/dL (6.0-8.3)
[2019-07-27 12:17] LABS: Carbon Dioxide 26 mmol/L (23-31)
[2019-07-27 12:18] LABS: Alkaline Phosphatase 135 U/L (40-110)
[2019-07-27 12:19] LABS: BUN (Urea Nitrogen) 20 mg/dL (9.8-20.1); Calc. Creatinine Clearance 0 mL/min (70-130); Estimated GFR-MDRD 38
[2019-07-27 12:21] LABS: ALT (SGPT) 38 U/L (8-55); CK (CPK) 52 U/L (29-168)
[2019-07-27 12:32] LABS: Anion Gap 16 mmol/L (10-20)
[2019-07-27 14:51] LABS: Troponin I 0.045 ng/mL (< 0.028)
[2019-07-27] MEDS ORDERED: Aspirin 325 MG TAB PO SCH (16:00)
[2019-07-27 16:01] VITALS: BMI 24.7
[2019-07-27 18:38] LABS: Troponin I 0.045 ng/mL (< 0.028)
[2019-07-27] MEDS ORDERED: Acetaminophen 325 MG TAB PO PRN (18:43)
[2019-07-27] MEDS ORDERED: Acetaminophen 500 MG TAB PO PRN (18:43)
[2019-07-27] MEDS ORDERED: Furosemide 40 MG TAB PO PRN (18:43)
[2019-07-27] MEDS: Dronedarone HCl 400 MG TAB PO SCH (19:53)
[2019-07-27] MEDS: Apixaban 5 MG TAB PO SCH (19:54)
[2019-07-27] MEDS ORDERED: Pramipexole Di-HCl 0.25 MG TAB PO SCH (21:00)
--- NOTE | 2019-07-27 22:11 | PDOC.HHP ---
Hospitalist HPI - History of Present Illness right back pain History of Present Illness: 73yo F w/ MHx of paroxysmal a.fib w/ RVR s/p multiple ablations, CHF, and left atrial appendage thrombus who presents with right back pain for the past day. Pain is located medial to the right shoulder, stabbing-like, comes and goes, about 3-4/10, and last for 2-3 minutes before it goes away. initially started while at rest, not associated with position, movement, or breathing. ED Course: In the ED, was found to have mildly elevated troponin, and considering her cardiac history, was admitted for further observation. Hospitalist ROS - Review of Systems Constitutional: denies: fever, chills, sweats, weakness, malaise, other Respiratory: denies: cough, dry, shortness of breath, hemoptysis, SOB with excertion, pleuritic pain, sputum, wheezing, other Cardiovascular: denies: chest pain, palpitations, orthopnea, paroxysmal noc. dyspnea, edema, light headedness, other Gastrointestinal: denies: nausea, vomiting, abdominal pain, diarrhea, constipation, melena, hematochezia, other Genitourinary: denies: dysuria, frequency, incontinence, hematuria, retention, other Musculoskeletal: reports: back pain (gener), other (diffuse joint pain, chronic) Skin: reports: bruising Neurological: denies: weakness, numbness, incoordination, change in speech, confusion, seizures, other - Medication Medications: Active Medications Generic Name Dose Route Start Last Admin Trade Name Freq PRN Reason Stop Dose Admin Apixaban 5 mg 07/27/19 21:00 07/27/19 19:54 Eliquis PO 5 mg BID DB Administration Dronedarone 400 mg 07/27/19 21:00 07/27/19 19:53 Multaq PO 400 mg BID DB Administration Metoprolol Succinate 25 mg 07/27/19 21:00 07/27/19 19:53 Toprol Xl PO 25 mg BID DB Administration Pramipexole Dihydrochloride 0.5 mg 07/27/19 21:00 07/27/19 19:54 Mirapex PO 0.5 mg HS DB Administration Hospitalist History - Past Medical History Source: patient (HISTORY OF PRESENT ILLNESS: Ms. Courtney Barney is a very pleasant 73-year-old, accompanied by her [id number]-ad-fft, who presents to the [facility] for evaluation of a wound over the dorsum of her left hand. The patient states that on 12/23/2018 she was seen in the Emergency Department. She states that when her IV secured with Tegaderm was discontinued, she suffered a skin tear. She states that her wound was dressed with gauze followed by Coban. The patient began performing dressing changes of Bactroban followed by Telfa and Coban for the wound over the dorsum of her left hand. She states that later she began using Neosporin in lieu of Bactroban. The patient was seen by her primary care physician 3 days ago and at this time referred to the Wound Center for further evaluation and treatment. Also at this time, the patient was placed on a course of Keflex. The patient reports increasing erythema of the skin surrounding her wound. She also reports pain over the dorsum of her left hand with dorsiflexion. PAST MEDICAL HISTORY: 1. History of recurrent paroxysmal atrial fibrillation/flutter, status post multiple ablations. 2. History of irritable bowel syndrome. 3. Hypertension. 4. Aortic valve insufficiency. 5. DJD. 6. History of recurrent syncope. 7. Congestive heart failure. 8. Left atrial appendage thrombus. 9. History of rheumatic fever. PAST SURGICAL HISTORY : 1. Right foot surgery. 2. Pacemaker placement x2. 3. Pericardial window. MEDICATIONS: 1. Cephalexin. 2. Multaq. 3. Eliquis. 4. Mirapex. 5. Crestor.6. Tramadol. 7. Lasix. 8. Potassium. 9. Iron. 10. Multivitamin. ALLERGIES: MORPHINE. SOCIAL HISTORY: Negative for tobacco or EtOH use since the age of 17. FAMILY HISTORY: Family history is negative for diabetes mellitus or coronary artery disease.) - Exam General Appearance: NAD, awake alert Eye: PERRL ENT: normocephalic atraumatic Neck: no JVD Heart: RRR, no murmur, no gallops, no rubs Respiratory: CTAB, no wheezes, no rales, no ronchi, normal chest expansion, no tachypnea Gastrointestinal: soft, non-tender, non-distended, normal bowel sounds Extremities: no edema Skin - other findings: multiple echymoses, including upper thorax (about 10cm) and post right knee Neurological: cranial nerve grossly intact Musculoskeletal: normal tone, normal strength, no muscle wasting Musculoskeletal - other findings: reproducible right upper back mild tenderness , no overlying skin lesions Psychiatric: normal affect, normal behavior, A&O x 3 Hospitalist Results - Labs Result Diagrams: 07/27/19 11:05 07/27/19 11:05 Lab results: WBC 8.6 thou/uL (4.8-10.8) 07/27/19 11:05 Hgb 12.0 g/dL (12.0-16.0) 07/27/19 11:05 Hct 37.1 % (36.0-47.0) 07/27/19 11:05 MCV 95.2 fL (78.0-98.0) 07/27/19 11:05 Plt Count 261 thou/uL (130-400) 07/27/19 11:05 Neutrophils % 68.0 % (42.0-75.0) 07/27/19 11:05 Sodium 140 mmol/L (136-145) 07/27/19 11:05 Potassium 3.9 mmol/L (3.5-5.1) 07/27/19 11:05 Chloride 102 mmol/L (98-107) 07/27/19 11:05 Carbon Dioxide 26 mmol/L (23-31) 07/27/19 11:05 BUN 20 mg/dL (9.8-20.1) 07/27/19 11:05 Creatinine 1.36 mg/dL (0.6-1.1) H 07/27/19 11:05 Glucose 96 mg/dL (83-110) 07/27/19 11:05 Calcium 9.3 mg/dL (7.8-10.44) 07/27/19 11:05 Total Bilirubin 0.6 mg/dL (0.2-1.2) 07/27/19 11:05 AST 40 U/L (5-34) H 07/27/19 11:05 ALT 38 U/L (8-55) 07/27/19 11:05 Alkaline Phosphatase 135 U/L (40-110) H 07/27/19 11:05 Creatine Kinase 52 U/L (29-168) 07/27/19 11:05 CK-MB (CK-2) 0.5 ng/mL (0-6.6) 07/27/19 11:05 Troponin I 0.045 ng/mL (< 0.028) H 07/27/19 17:42 B-Natriuretic Peptide 227.4 pg/mL (0-100) H 07/27/19 11:05 Serum Total Protein 7.7 g/dL (6.0-8.3) 07/27/19 11:05 Albumin 4.3 g/dL (3.4-4.8) 07/27/19 11:05 - EKG Interpretation EKG: bipacing with no concordance or signs of acute ischemia - Radiology Interpretation US - abdomen Status: image reviewed by ga Hospitalist H&P A/P - Problem (1) Musculoskeletal back pain Code(s): M54.9 - DORSALGIA, UNSPECIFIED Status: Acute (2) Cholelithiasis Code(s): K80.20 - CALCULUS OF GALLBLADDER W/O CHOLECYSTITIS W/O OBSTRUCTION Status: Acute (3) Atrial fibrillation, persistent Code(s): I48.1 - PERSISTENT ATRIAL FIBRILLATION * DO NOT USE * Status: Chronic - Plan Plan: -pain is noncardiac, likely musculoskeletal, and has resolved on presentation -troponinemia indeterminate x 3; likely in context of atrial fibrillation / recent ablation about a week ago -right shoulder pain can also be referred pain of biliary colic. though evidence of cholelithiasis, doesn't report other symptoms of colic so less likely -will monitor overnight -tylenol PRN pain -Patient and son educated regarding cardiac, atypical and noncardiac pain
--- NOTE | 2019-07-28 07:06 | CON ---
DATE OF CONSULTATION: 07/27/2019 I am seeing Mrs. Barney at our [facility] as an Electrophysiology sap solution manager consultant. Her problems are; 1. Recurrent atrial arrhythmias. a. Persistent atrial fibrillation, status post pulmonary venous isolation and posterior wall ablation, left atrial appendage isolation in the past and the most recent extensive ablation primarily in the right atrium and anterior septum was performed on 01/20/2017, redo ablation on 11/18/2018 and eventually on 07/17/[address] Liu,. b. Recurrent tachyarrhythmias prompted resuming Multaq last week. 2. Atypical pleuritic chest pains. 3. History of Watchman device placement with subsequent RYANN in 02/2019 with trivial flow only, patient off Eliquis, but no reason for recent ablation. 4. History of bradycardia and cardiomyopathy prompting a biventricular pacing implantation in 04/2018. 5. History of preserved LVEF on most recent RYANN on 02/22/2019. 6. History of hypertension and hypercholesteremia. ALLERGIES: MORPHINE. MEDICATIONS: At home included Crestor, Multaq 400 twice a day, metoprolol 25 mg twice a day, aspirin, Lasix, potassium, and Eliquis. SUBJECTIVE: Mrs. Barney was complaining of lower extremity discomfort with some shooting pains to the back of her right leg. Also, she had some atypical mostly pleuritic appearing chest discomforts as well. Eventually, she was told to come to the ER for an ultrasound evaluation of her veins, which was performed and was negative. Routine workup revealed abnormal cardiac enzymes at 0.04. She is admitted for further monitoring. At this point, she denies ongoing chest pain. No dyspnea. No fever, chills, or cough. No PND or orthopnea noted. She did have some fluid overload issues prompting Lasix after her ablation. Her groin swelling is minimal. Bruising at the right posterior aspect of the knee is seen. REVIEW OF SYSTEMS: Rest of 12-point system otherwise unremarkable. PAST MEDICAL HISTORY: As above. SOCIAL HISTORY: Patient denies smoking, EtOH or drug abuse. Her son is with her. FAMILY HISTORY: Not contributory. OBJECTIVE DATA: VITAL SIGNS: Blood pressure is 110/67, heart rate 93, and respirations 14. Patient is afebrile GENERAL: Alert and oriented woman, in no apparent distress. NECK: Supple. Jugular veins are not distended. CHEST: Coarse. No crackles. HEART: Sounds are regular to rate and rhythm without murmur, gallop, or rub. Left precordial pacemaker insertion site is well healed. ABDOMEN: Benign. Bowel sounds positive. EXTREMITIES: Lower extremities without edema, clubbing, or cyanosis. Pulses are adequate. NEUROLOGIC: Nonfocal. MUSCULOSKELETAL: Without joint swelling or deformity. SKIN: Without rash. DATABASE: EKG is reviewed with atrial ventricular paced rhythm. The narrow QRS is noted. LABORATORY DATA: Reviewed revealing sodium 140, potassium 2.9, BUN is 20, creatinine is 1.36, AST and ALT are 40 and 38. The troponin I 0.04. CK-MB 0.5 , in normal range. BNP is 227. The white cell count is 8.6, hemoglobin 12, and platelet count is 261. Chest x-ray shows chronic parenchymal changes. No acute process. Abdominal ultrasound revealed cholelithiasis of the gallbladder, sludge, without evidence of acute cholecystitis. Lower extremity venous Doppler ultrasound negative for DVT. ASSESSMENT AND PLAN: Mrs. Barney is a very pleasant 73-year-old woman with recurrent atrial arrhythmias, one event of recent pulmonary venous isolation procedure on the 17 of July. She had atypical atrial flutter recurrence, currently back on Multaq, but seems to be stable from the arrhythmia standpoint. Minor atypical chest pains could be seen with postablation resolving pericardial irritation. Also, mild troponin elevation could be also residual from the recent ablation. Her groin issue seems to be not related to an acute thrombosis and no severe hematoma found either. At this point, I think overall EP status is stable. She is going to be admitted for observation. I am expecting prompt discharge providing cardiac enzymes remain downtrending. Dr. Woods, her management trainee marketing may consider further evaluation if the cardiac enzymes are abnormal. Overall, no change from the EP standpoint is planned. Continue anticoagulation and Multaq. Routine pacemaker monitoring will be continued in the office. I will see her back as scheduled six weeks postablation. Thank you again for letting me participate in this patient's care. Job ID: [id number] [facility]
[2019-07-28 07:59] VITALS: BP 97/53; TEMP 97.7
[2019-07-28] MEDS ORDERED: Rosuvastatin 5 MG TAB PO SCH (09:00)
[2019-07-28] MEDS: Apixaban 5 MG TAB PO SCH (09:03)
[2019-07-28] MEDS: Dronedarone HCl 400 MG TAB PO SCH (09:04)
--- NOTE | 2019-07-28 16:15 | DIS ---
DATE OF ADMISSION: 07/27/2019 DATE OF DISCHARGE: 07/28/2019 REASON FOR HOSPITALIZATION: Palpitations. SIGNIFICANT FINDINGS: The patient found to have no significant acute findings and was recommended safe for discharge by router setter aluminum polisher, Dr. Kasper. PROCEDURES PERFORMED AND TREATMENTS RENDERED: Ms. Barney is a very pleasant 73-year-old female with past medical history of atrial fibrillation who recently underwent ablation on 06/23/[address] Kasper - please see full operative report for details. The patient did have transient episode of palpitations and she was concerned and came to the hospital for further evaluation. The patient was seen and evaluated by Dr. Kasper on 07/27/2019, who recommended the patient was in stable condition and that mildly elevated cardiac enzymes could be seen after ablation and may be even secondary to temporary episodes of tachycardia. The patient was monitored on continuous telemetry and there were no significant abnormalities. The patient had very minor early elevated troponins, which were trended throughout her hospitalization and stayed at the level of 0.045, this in the setting of renal impaired clearance with a creatinine of 1.36. This is likely chronic and baseline for the patient. As the patient's cardiac enzymes did not uptrend and there was no definitive chest pain, the patient was recommended safe for discharge with close followup in the outpatient setting by Dr. Kasper. The patient recommended safe for discharge on 10/26/2019 with close followup in the outpatient setting. CONDITION ON DISCHARGE: Stable. SPECIFIC INSTRUCTIONS FOR THE PATIENT/FAMILY: 1. The patient is recommended to take all medications as directed, to be re-evaluated by primary care physician and Cardiology in the upcoming weeks. 2. The patient recommended to follow up with primary care physician in the next 5 to 7 days. 3. The patient is recommended to follow up with general aluminum polisher in the next 1 to 2 weeks. 4. The patient recommended to follow up with Dr. Kasper in the next 4 to 6 weeks. 5. The patient is recommended to return to acute care hospital immediately if signs or symptoms return, worsen, or any other new symptoms occur. DISCHARGE MEDICATIONS: Please see full discharge medication list for details. 1. Crestor 5 mg p.o. daily. 2. Mirapex 0.5 mg p.o. at bedtime. 3. Klor-Con 20 mEq daily. 4. Protonix 40 mg p.o. daily. 5. Metoprolol succinate extended release 25 mg one tablet p.o. b.i.d. 6. Furosemide 40 mg p.o. daily p.r.n. lower extremity edema. 7. Eliquis 5 mg one tablet p.o. b.i.d. 8. Tylenol Extra Strength 1000 mg p.o. q.6 hours p.r.n. pain. 9. Multaq one tablet p.o. b.i.d. TIME SPENT: Greater than 33 minutes spent coordinating care and discharge process for this patient. Job ID: [id number]
== END 2019-07-28 10:11 | disposition home or self-care (01) ==
LOC: ERS 10:40 → 2SW 13:52 → ERS 15:18
PROVIDERS: ADMIT Internal Medicine; ATTEND Internal Medicine
DX: M54.9 Dorsalgia, unspecified (principal); R07.81 Pleurodynia; R00.2 Palpitations; I48.0 Paroxysmal atrial fibrillation; M19.90 Unspecified osteoarthritis, unspecified site; I11.0 Hypertensive heart disease with heart failure; I50.9 Heart failure, unspecified; I35.1 Nonrheumatic aortic (valve) insufficiency; K58.9 Irritable bowel syndrome, unspecified; K80.20 Calculus of gallbladder without cholecystitis without obstruction; I48.4 Atypical atrial flutter; Z79.01 Long term (current) use of anticoagulants; Z79.899 Other long term (current) drug therapy; Z88.5 Allergy status to narcotic agent; Z91.048 Other nonmedicinal substance allergy status; Z95.0 Presence of cardiac pacemaker
CPT/HCPCS: 71045; 76705; 80053; 82550; 82553; 83880; 84484 ×2; 85025; 93005; 93970; 99285; G0378 ×3; 36415

== ENCOUNTER 2019-09-21 13:04 | Emergency (ER) | payer MEDICARE, OTHER ==
[2019-09-21 13:38] LABS: #Basophils 0.1 thou/uL (0.0-0.2); #Eosinphils 0.3 thou/uL (0.0-0.7); #Lymphocytes 1.4 thou/uL (1.20-3.40); #Monocytes 0.6 thou/uL (0.11-0.59); #Neutrophils 4.2 thou/uL (1.40-6.50); %Basophils 0.9 % (0.0-1.0); %Eosinophils 3.9 % (0.0-10.0); %Lymphocytes 21.5 % (21.0-51.0); %Monocytes 9.6 % (0.0-10.0); %Neutrophils 64.1 % (42.0-75.0); Hemoglobin 11.1 g/dL (12.0-16.0); Mean Corpuscular HGB CONC 33.7 g/dL (32.0-36.0); Mean Corpuscular Hemoglobin 31.8 pg (27.0-31.0); Mean Corpuscular Volume 94.3 fL (78.0-98.0); Mean Platelet Volume 7.7 fL (7.4-10.4); Platelet Count 221 thou/uL (130-400); RBC Distribution Width 13.3 % (11.5-14.5); White Blood Cell (WBC) Count 6.6 thou/uL (4.8-10.8)
[2019-09-21 13:57] LABS: ALT (SGPT) 29 U/L (8-55); AST (SGOT) 39 U/L (5-34); Albumin 4.1 g/dL (3.4-4.8); Alkaline Phosphatase 152 U/L (40-110); Anion Gap 13 mmol/L (10-20); BUN (Urea Nitrogen) 34 mg/dL (9.8-20.1); Bilirubin, Total 0.6 mg/dL (0.2-1.2); Calc. Creatinine Clearance 0 mL/min (70-130); Calcium 9.6 mg/dL (7.8-10.44); Carbon Dioxide 23 mmol/L (23-31); Chloride 108 mmol/L (98-107); Estimated GFR-MDRD 29; Globulin 3.7 g/dL (2.4-3.5); Glucose 87 mg/dL (83-110); Protein, Total 7.8 g/dL (6.0-8.3); Sodium 139 mmol/L (136-145)
[2019-09-21 15:57] LABS: Potassium 5.5 mmol/L (3.5-5.1)
== END 2019-09-21 14:18 | disposition home or self-care (01) ==
LOC: ERS 13:04
DX: E87.5 Hyperkalemia (principal); I10 Essential (primary) hypertension; I48.91 Unspecified atrial fibrillation; Z79.899 Other long term (current) drug therapy; Z79.01 Long term (current) use of anticoagulants; I42.9 Cardiomyopathy, unspecified
CPT/HCPCS: 36415; 80048; 85025; 93005; 94760; 96365; J0610; J3490

== ENCOUNTER 2019-09-25 11:41 | Inpatient (IN) | payer MEDICARE, OTHER ==
[2019-09-25 12:14] VITALS: BMI 27.3
[2019-09-25] MEDS ORDERED: PROVENTIL INHALER 6.7 G (200 INHALATIONS) INH PRN (13:29)
[2019-09-25] MEDS ORDERED: Calcium Carbonate 500 MG ChewTAB PO PRN (13:33)
[2019-09-25] MEDS ORDERED: Acetaminophen 325 MG TAB PO PRN (13:33)
[2019-09-25] MEDS ORDERED: Doxycycline 100 MG CAP PO SCH (13:45)
[2019-09-25] MEDS ORDERED: Albuterol 200 PUFF (6.7GM INHALER) INH PRN (13:56)
[2019-09-25 14:18] LABS: Hemoglobin 9.6 g/dL (12.0-16.0); Mean Corpuscular HGB CONC 33.4 g/dL (32.0-36.0); Mean Corpuscular Hemoglobin 30.9 pg (27.0-31.0); Mean Corpuscular Volume 92.5 fL (78.0-98.0); Mean Platelet Volume 7.6 fL (7.4-10.4); Platelet Count 134 thou/uL (130-400); RBC Distribution Width 13.2 % (11.5-14.5); Red Blood Cell (RBC) Count 3.09 mill/uL (4.20-5.40); White Blood Cell (WBC) Count 5.3 thou/uL (4.8-10.8)
[2019-09-25 14:34] LABS: Band 6 % (5-11); Eosinophils 1 % (0-10); Lymphocytes 25 % (21-51); MDiff Complete? YES; Monocytes 15 % (0-10); Neutrophil 53 % (42-75); Ovalocytes SLIGHT = 2-5 cells (100X) (0-1/hpf); Platelet Morphology Comment Appears Adequate; Polychromasia SLIGHT = 2-3 cells (100X) (0-2/hpf)
[2019-09-25 14:38] LABS: Lactic Acid 0.6 mmol/L (0.5-2.2)
[2019-09-25 14:54] LABS: ALT (SGPT) 23 U/L (8-55); AST (SGOT) 27 U/L (5-34); Albumin 3.3 g/dL (3.4-4.8); Alkaline Phosphatase 111 U/L (40-110); Anion Gap 11 mmol/L (10-20); BUN (Urea Nitrogen) 18 mg/dL (9.8-20.1); Bilirubin, Total 0.8 mg/dL (0.2-1.2); CK (CPK) 48 U/L (29-168); CRP (Inflammatory) 2.16 mg/dL (= or < 0.5); Calc. Creatinine Clearance 45 mL/min (70-130); Calcium 8.5 mg/dL (7.8-10.44); Carbon Dioxide 18 mmol/L (23-31); Chloride 109 mmol/L (98-107); Estimated GFR-MDRD 49; Globulin 2.9 g/dL (2.4-3.5); Glucose 86 mg/dL (83-110); Potassium 4.1 mmol/L (3.5-5.1); Protein, Total 6.2 g/dL (6.0-8.3); Sodium 134 mmol/L (136-145)
[2019-09-25 14:57] LABS: Phosphorus 2.7 mg/dL (2.3-4.7)
[2019-09-25] MEDS: Cefepime 1 GM in Sodium Chloride 0.9% 100 ML IVPB SCH (15:37)
[2019-09-25 16:16] LABS: Bacteria/HPF None Seen HPF (None Seen); Bilirubin Negative (Negative); Blood, Urine Negative (Negative); Clarity Clear (Clear); Glucose, Urine (Dipstick) Normal (Negative); Leukocyte 25 Leu/uL (Negative); Nitrite Negative (Negative); Protein, Urine (Dipstick) 30 mg/dL (Neg-Trace); Squamous Epithelial 0-3 HPF (0-3); Urobilinogen Normal mg/dL (Less than 2)
[2019-09-25] MEDS ORDERED: Cepastat Lozenges 1 LOZ PO PRN (16:21)
[2019-09-25 16:23] LABS: Urine Culture Reflex Yes Yes
[2019-09-25] MEDS: Sodium Bicarbonate 150 MEQ in Dextrose 5% in Water 1,000 ML IV SCH (17:30)
--- NOTE | 2019-09-25 18:05 | HP ---
PRIMARY CARE PHYSICIAN: Dr. Agustina Gamboa. PRIMARY PRINTING PLATE CLERK: Dr. Woods. CHIEF COMPLAINT: Fever with sore throat of one day duration. HISTORY OF PRESENT ILLNESS: The patient is a 73-year-old female with cardiomyopathy, paroxysmal atrial fibrillation, hypertension, and hyperlipidemia, presented to the Urgent Care with above complaints. She was subsequently transferred to the hospital for admission. Over the last 12 to 24 hours, the patient started having fever along with sore throat. She felt generally weak and fatigued. She also had intermittent chills. She had cough with mild production. She was also getting short of breath on qali-[id number]-gyxcafww exertion. Denies any loss of smell or taste. She was evaluated at the Urgent Care and COVID-19 testing has been sent. A chest x-ray was negative for infiltrate. She denies any palpitations, syncope, recent immobilization, travel, or sick contacts. She was recently evaluated in the emergency room for hyperkalemia and was discharged home. Her potassium was discontinued. She was also instructed by Dr. Woosd to hold Lasix. PAST MEDICAL HISTORY: 1. Paroxysmal atrial fibrillation. 2. Restless legs syndrome. 3. Degenerative joint disease. 4. Hypertension. 5. Chronic systolic heart failure. 6. Sick sinus syndrome, status post pacemaker. 7. Mitral regurgitation. 8. Chronic kidney disease, stage 3. 9. Cholelithiasis. 10. History of left atrial thrombus. PAST SURGICAL HISTORY: 1. Coronary artery bypass grafting. 2. Appendectomy. 3. Pacemaker placement. 4. Foot surgery. 5. Cardiac ablation. 6. Status post pericardial window. 7. Cardiac catheterization. 8. Colonoscopy. ALLERGIES: THE PATIENT IS ALLERGIC TO MORPHINE AND ADHESIVES. CURRENT HOME MEDICATIONS: 1. Tylenol as needed. 2. Eliquis 5 mg b.i.d. 3. Multaq 400 mg b.i.d. 4. Lasix as needed. 5. Toprol-XL 25 mg b.i.d. 6. Mirapex 0.5 mg at bedtime. 7. Crestor 5 mg q.a.m. 8. Protonix 40 mg daily. FAMILY HISTORY: Father with lung cancer. Mother with emphysema. SOCIAL HISTORY: The patient currently lives in [place]. She is a nonsmoker. She lives with her family. She is full code and makes her own decision with the help of her family. REVIEW OF SYSTEMS: All other review of systems was reviewed and was found negative. PHYSICAL EXAMINATION: VITAL SIGNS: Showed temperature 100.7, with pulse rate of 91, respirations of 22, blood pressure of 121/59, with O2 saturation 96% on room air. GENERAL: A 73-year-old female, ill-appearing, in no apparent distress. HEENT: Head, atraumatic and normocephalic. Sclerae are anicteric. Moist mucous membranes. No oral lesion. NECK: Supple. No JVD appreciated. No carotid bruit. LUNGS: Clear to auscultation bilaterally with scattered rhonchi. No wheezing or rales. HEART: S1 and S2 present. Regular rate and rhythm. No rubs or gallops. ABDOMEN: Soft, nontender. Bowel sounds present. No rebound or guarding. No costovertebral angle tenderness. EXTREMITIES: No edema or calf tenderness. NEUROLOGIC: Grossly nonfocal. Moves all 4 extremities. PSYCHIATRIC: Alert, awake, and oriented x3. SKIN: Warm and dry. LYMPH NODES: No palpable lymph nodes in the neck. PERIPHERAL VASCULAR: Radial pulses palpable bilaterally. MUSCULOSKELETAL: No joint swelling or tenderness. LABORATORY FINDINGS: CBC showed WBC 5.3 with hemoglobin 9.6, hematocrit 28.6, platelets 134. Chemistry showed sodium 134, potassium 4.1, chloride 109, bicarb 18, BUN 18, creatinine 1.1. LFTs in normal range except for alkaline phosphatase of 111. CRP 2.16. Troponin was negative. BNP was 445. Phosphorus was 2.7. Lactic acid 0.6. Urinalysis showed 4 to 6 wbc's without any bacteria. Chest x-ray by my review was negative for infiltrate. Telemetry monitoring by my review showed sinus rhythm. IMPRESSION: 1. Fever with sore throat, rule out COVID-19. 2. Paroxysmal atrial fibrillation, on anticoagulation, currently in sinus rhythm. 3. Chronic systolic heart failure, compensated. Sick sinus syndrome, status post pacemaker. 4. Chronic kidney disease, stage 3. 5. Recent ER visit for hyperkalemia. 6. Hypertension. 7. Degenerative joint disease. 8. Irritable bowel syndrome. 9. Restless legs syndrome. PLAN: The patient will be monitored as a 23-hour observation. Respiratory viral panel will be sent. Procalcitonin is pending at this time. Blood cultures have been sent. We will recheck labs in a.m. The patient will be placed on isolation for suspected COVID-19. We will start her on gentle IV hydration. We will start her on cefepime with doxycycline. Resume home medications. Her blood pressures are on the lower side. For this reason, we will reduce metoprolol succinate to 12.5 twice a day. Continue Mirapex. The patient understands the above plan of care. Job ID: [id number]
[2019-09-25] MEDS: Dronedarone HCl 400 MG TAB PO SCH (19:32)
[2019-09-25] MEDS: Pramipexole Di-HCl 0.25 MG TAB PO SCH (19:32)
[2019-09-25] MEDS: Apixaban 5 MG TAB PO SCH (19:33)
[2019-09-25] MEDS: Doxycycline 100 MG CAP PO SCH (19:33)
[2019-09-25] MEDS: guaiFENesin ER 600 MG TAB PO SCH (19:33)
[2019-09-25] MEDS: Acetaminophen 500 MG TAB PO PRN (19:41)
[2019-09-25] MEDS ORDERED: Famotidine 20 MG TAB PO SCH (21:00)
[2019-09-26] MEDS: Cefepime 1 GM in Sodium Chloride 0.9% 100 ML IVPB SCH ×2 (02:59→21:11)
[2019-09-26 04:56] LABS: ALT (SGPT) 22 U/L (8-55); AST (SGOT) 27 U/L (5-34); Albumin 3.1 g/dL (3.4-4.8); Alkaline Phosphatase 107 U/L (40-110); Anion Gap 10 mmol/L (10-20); BUN (Urea Nitrogen) 16 mg/dL (9.8-20.1); Bilirubin, Total 0.8 mg/dL (0.2-1.2); Calc. Creatinine Clearance 47 mL/min (70-130); Calcium 8.5 mg/dL (7.8-10.44); Carbon Dioxide 22 mmol/L (23-31); Chloride 110 mmol/L (98-107); Estimated GFR-MDRD 51; Globulin 2.9 g/dL (2.4-3.5); Glucose 92 mg/dL (83-110); Potassium 3.7 mmol/L (3.5-5.1); Sodium 138 mmol/L (136-145)
[2019-09-26 05:45] LABS: Band 8 % (5-11); Eosinophils 2 % (0-10); Hemoglobin 9.4 g/dL (12.0-16.0); Hypochromia SLIGHT = 6-15 cells (100X) (0-5/hpf); Lymphocytes 18 % (21-51); MDiff Complete? YES; Mean Corpuscular HGB CONC 36.5 g/dL (32.0-36.0); Mean Corpuscular Hemoglobin 33.9 pg (27.0-31.0); Mean Corpuscular Volume 92.9 fL (78.0-98.0); Mean Platelet Volume 7.9 fL (7.4-10.4); Monocytes 6 % (0-10); Neutrophil 66 % (42-75); Platelet Count 128 thou/uL (130-400); Platelet Morphology Comment Appears Adequate; RBC Distribution Width 13.4 % (11.5-14.5); Red Blood Cell (RBC) Count 2.78 mill/uL (4.20-5.40); White Blood Cell (WBC) Count 5.4 thou/uL (4.8-10.8)
[2019-09-26] MEDS ORDERED: Potassium Chloride 10 MEQ TAB PO SCH (08:00)
[2019-09-26] MEDS: Doxycycline 100 MG CAP PO SCH ×2 (08:35→20:59)
[2019-09-26] MEDS: Saccharomyces boulardii 250 MG CAP PO SCH (08:36)
[2019-09-26] MEDS: Rosuvastatin 5 MG TAB PO SCH (08:36)
[2019-09-26] MEDS: Apixaban 5 MG TAB PO SCH ×2 (08:36→20:59)
[2019-09-26] MEDS: Dronedarone HCl 400 MG TAB PO SCH ×2 (08:36→20:59)
[2019-09-26] MEDS: guaiFENesin ER 600 MG TAB PO SCH ×2 (08:37→20:59)
[2019-09-26] MEDS: Acetaminophen 500 MG TAB PO PRN (08:37)
[2019-09-26 09:35] LABS: Hemoglobin 9.1 g/dL (12.0-16.0); Platelet Count 119 thou/uL (130-400)
[2019-09-26] MEDS ORDERED: Hydroxychloroquine Sulfate 200 MG TAB PO SCH ×2 (11:00→21:00)
[2019-09-26] MEDS: Sodium Bicarbonate 150 MEQ in Dextrose 5% in Water 1,000 ML IV SCH (16:48)
--- NOTE | 2019-09-26 17:17 | CON ---
DATE OF CONSULTATION: HISTORY OF PRESENT ILLNESS: The patient is a 73-year-old woman, with a history of atrial fibrillation and congestive heart failure, who presented with increasing dyspnea and fever. The patient has a previous cardiac history. She underwent a cardiac catheterization in 2014. She was found to have normal left ventricular systolic function with normal coronary arteries. The patient also has paroxysmal atrial fibrillation. She has undergone several ablations for atrial fibrillation. She also has a history of undergoing a Watchman device. The patient has developed congestive heart failure. She was noted to have a decrease in left ventricular function. The patient was started on Entresto. She was found few days ago to have developed severe hyperkalemia. She was sent to the emergency room. Repeat labs revealed only mild hyperkalemia. The patient went home and subsequently developed fevers and dyspnea. She presented to emergency room and was admitted for further evaluation. PAST MEDICAL HISTORY: 1. Atrial fibrillation. 2. Congestive heart failure. 3. Nonischemic cardiomyopathy. 4. History of a Watchman device. 5. History of mitral regurgitation. PAST SURGICAL HISTORY: Appendectomy and foot surgery. ALLERGIES: MORPHINE AND ADHESIVES. MEDICATIONS: See nursing list. SOCIAL HISTORY: Nonsmoker. REVIEW OF SYSTEMS: PHYSICAL EXAMINATION: VITAL SIGNS: Blood pressure was 118/67, temperature was 98.7. Physical examination deferred due to the COVID virus. LABORATORY RESULTS: White blood cell count 5.4, hemoglobin 9.1, hematocrit 26.1 , platelets were 119. Sodium 138, potassium 3.7, chloride 110, bicarbonate 22, BUN 16, creatinine was 1.12. Troponin 0.023. Chest x-ray showed clear lung pucktet, otherwise unremarkable. EKG atrial fibrillation with an electronic ventricular pacemaker. IMPRESSION: 1. Recurrent atrial fibrillation. 2. History of pacemaker placement. 3. History of normal coronary arteries. 4. History of mitral regurgitation. 5. History of Watchman device. 6. History of a pericardial effusion status post an ablation. This patient presents with fevers and chills and suspected to have COVID. She went into atrial fibrillation. Her rate is fairly well controlled at this time with her low blood pressure. I would recommend we add a low dose of digoxin to control her heart rate. We will follow this patient with you through hospitalization. We will consult with JAILENE. Job ID: [id number] [facility]
[2019-09-26] MEDS: Digoxin 0.5 MG/2 ML AMP SLOW IVP SCH ×2 (17:32→19:24)
[2019-09-26] MEDS ORDERED: Digoxin 0.5 MG/2 ML AMP ONE (19:20)
[2019-09-26] MEDS: Pramipexole Di-HCl 0.25 MG TAB PO SCH (20:59)
[2019-09-26] MEDS ORDERED: Digoxin 0.125 MG TAB PO SCH (21:00)
[2019-09-27 05:31] LABS: Band 4 % (5-11); Eosinophils 2 % (0-10); Lymphocytes 23 % (21-51); MDiff Complete? YES; Mean Corpuscular HGB CONC 33.3 g/dL (32.0-36.0); Mean Corpuscular Hemoglobin 30.9 pg (27.0-31.0); Mean Corpuscular Volume 92.9 fL (78.0-98.0); Mean Platelet Volume 8.3 fL (7.4-10.4); Monocytes 10 % (0-10); Neutrophil 61 % (42-75); Platelet Count 125 thou/uL (130-400); Platelet Morphology Comment Appears Decreased; RBC Distribution Width 13.2 % (11.5-14.5); White Blood Cell (WBC) Count 5.3 thou/uL (4.8-10.8)
[2019-09-27 05:38] LABS: ALT (SGPT) 18 U/L (8-55); AST (SGOT) 22 U/L (5-34); Albumin 2.9 g/dL (3.4-4.8); Alkaline Phosphatase 97 U/L (40-110); Anion Gap 10 mmol/L (10-20); BUN (Urea Nitrogen) 13 mg/dL (9.8-20.1); Bilirubin, Total 0.9 mg/dL (0.2-1.2); Calc. Creatinine Clearance 49 mL/min (70-130); Calcium 7.9 mg/dL (7.8-10.44); Carbon Dioxide 24 mmol/L (23-31); Chloride 105 mmol/L (98-107); Estimated GFR-MDRD 55; Globulin 2.7 g/dL (2.4-3.5); Glucose 96 mg/dL (83-110); Potassium 3.8 mmol/L (3.5-5.1); Protein, Total 5.6 g/dL (6.0-8.3); Sodium 135 mmol/L (136-145)
[2019-09-27] MEDS: Cefepime 1 GM in Sodium Chloride 0.9% 100 ML IVPB SCH ×2 (07:27→20:23)
[2019-09-27] MEDS: Potassium Chloride 10 MEQ TAB PO SCH (07:28)
[2019-09-27] MEDS: Apixaban 5 MG TAB PO SCH ×2 (07:29→20:20)
[2019-09-27] MEDS: guaiFENesin ER 600 MG TAB PO SCH ×2 (07:29→20:20)
[2019-09-27] MEDS: Saccharomyces boulardii 250 MG CAP PO SCH (07:29)
[2019-09-27] MEDS: Rosuvastatin 5 MG TAB PO SCH (07:29)
[2019-09-27] MEDS: Doxycycline 100 MG CAP PO SCH ×2 (07:29→20:20)
[2019-09-27] MEDS: Dronedarone HCl 400 MG TAB PO SCH ×2 (07:29→20:20)
[2019-09-27] MEDS: Digoxin 0.125 MG TAB PO SCH (07:30)
--- NOTE | 2019-09-27 08:33 | PDOC.HOSPP ---
- Subjective Encounter Date: 09/26/19 Encounter Time: 16:30 Subjective: Patient seen and examined for Sepsis. Dry cough. No fever. No new complaints. No overnight events - Objective Vital Signs & Weight: Vital Signs (12 hours) Temp Pulse Resp BP Pulse Ox 09/27/19 07:32 99.1 F 79 20 101/53 L 95 09/27/19 03:58 98.2 F 83 24 H 100/51 L 98 09/26/19 20:59 86 09/26/19 20:55 99 09/26/19 20:52 100.7 F H 86 20 117/56 L 90 L Weight Weight 135 lb 6.4 oz I&O: 09/26/19 09/27/19 09/28/19 06:59 06:59 06:59 Intake Total 1190 1851.7 Output Total 1000 850 Balance 190 1001.7 Result Diagrams: 09/27/19 04:49 09/27/19 04:49 EKG Reviewed by me: Yes (Tele tachyarrythmia) Hospitalist ROS - Review of Systems Cardiovascular: denies: chest pain, palpitations, orthopnea, paroxysmal noc. dyspnea, edema, light headedness, other Gastrointestinal: denies: nausea, vomiting, abdominal pain, diarrhea, constipation, melena, hematochezia, other - Medication Medications: Active Medications Generic Name Dose Route Start Last Admin Trade Name Freq PRN Reason Stop Dose Admin Acetaminophen 1,000 mg 09/25/19 16:01 09/26/19 08:37 Tylenol PO 1,000 mg Q6H PRN Administration Pain Apixaban 5 mg 09/25/19 21:00 09/27/19 07:29 Eliquis PO 5 mg BID DB Administration Digoxin 0.125 mg 09/27/19 09:00 09/27/19 07:30 Lanoxin PO 0.125 mg QAM DB Administration Doxycycline Hyclate 100 mg 09/25/19 21:00 09/27/19 07:29 Vibramycin PO 100 mg BID DB Administration Dronedarone 400 mg 09/25/19 21:00 09/27/19 07:29 Multaq PO 400 mg BID DB Administration Guaifenesin 600 mg 09/25/19 21:00 09/27/19 07:29 Mucinex PO 600 mg Q12HR DB Administration Hydroxychloroquine Sulfate 200 mg 09/27/19 09:00 09/27/19 07:29 Plaquenil PO 200 mg BID DB Administration Sodium Bicarbonate 150 meq/ 1,150 mls @ 50 mls/hr 09/25/19 16:15 09/26/19 16: 48 Dextrose/Water IV 1,150 mls .Q23H DB Administration Cefepime HCl 1 gm/ Sodium 100 mls @ 200 mls/hr 09/26/19 21:00 09/27/19 07:27 Chloride IVPB 100 mls 0900,2100 DB Administration Metoprolol Succinate 12.5 mg 09/25/19 21:00 09/26/19 08:37 Toprol Xl PO 12.5 mg BID DB Administration Pantoprazole Sodium 40 mg 09/26/19 09:00 09/27/19 07:29 Protonix PO 40 mg DAILY DB Administration Potassium Chloride 20 meq 09/27/19 09:00 09/27/19 07:28 Klor-Con 10 PO 20 meq QAM DB Administration Pramipexole Dihydrochloride 0.5 mg 09/25/19 21:00 09/26/19 20:59 Mirapex PO 0.5 mg HS DB Administration Rosuvastatin Calcium 5 mg 09/26/19 09:00 09/27/19 07:29 Crestor PO 5 mg QAM DB Administration Saccharomyces Boulardii 250 mg 09/26/19 09:00 09/27/19 07:29 Florastor PO 250 mg DAILY DB Administration - Exam General Appearance: NAD Neck: supple, no JVD Heart: RRR, no gallops Respiratory: no wheezes, rhonchi Gastrointestinal: soft, non-tender, non-distended Extremities: no cyanosis Neurological: no new deficit Hosp A/P - Plan DVT proph w/SCDs 1. Sepsis/Fever with sore throat, suspected COVID-19. 2. Paroxysmal atrial fibrillation, on anticoagulation, currently in sinus rhythm. 3. Chronic systolic heart failure, compensated. Sick sinus syndrome, status post pacemaker. 4. Chronic kidney disease, stage 3. 5. Recent ER visit for hyperkalemia. 6. Hypertension. 7. Degenerative joint disease. 8. Irritable bowel syndrome. 9. Restless legs syndrome. PLAN: Start Hydroxycholorquine Cont IV Atbx Consult Cardiology Hold Toprol due to low BP Cont Multaq Cont isolation Cont IVF Case d/w Dr Sanchez
[2019-09-27] MEDS ORDERED: Hydroxychloroquine Sulfate 200 MG TAB PO SCH (09:00)
--- NOTE | 2019-09-27 12:58 | RAD ---
CHEST 1 VIEW: Date: 09/27/2019 INDICATION: History of fever, rule out pneumonia. COMPARISON: Prior exam dated 07/27/2019 and 09/25/2019. FINDINGS: Endovascular coil is seen within the region of the left atrial appendage with moderate cardiomegaly i s stable. Pacemaker is unchanged. There is worsening bilateral pleural effusions. The pulmonary vascu lar congestion persists. There is worsening air space opacity within the right mid lung which may ref lect worsening edema or pneumonia. IMPRESSION: 1. Persistent cardiomegaly and pulmonary vascular congestion, and now new small bilateral pleural ef fusions. Component of CHF is suspected. 2. Worsening air space opacity in the region of the right middle lobe suspicious for either air spac e edema or evolving pneumonia. POS: BH
[2019-09-27] MEDS: Sodium Bicarbonate 150 MEQ in Dextrose 5% in Water 1,000 ML IV SCH (13:44)
[2019-09-27] MEDS: Pramipexole Di-HCl 0.25 MG TAB PO SCH (20:20)
[2019-09-28 05:51] LABS: Hemoglobin 8.1 g/dL (12.0-16.0); Mean Corpuscular HGB CONC 33.7 g/dL (32.0-36.0); Mean Corpuscular Hemoglobin 31.7 pg (27.0-31.0); Mean Corpuscular Volume 94.2 fL (78.0-98.0); RBC Distribution Width 13.2 % (11.5-14.5); Red Blood Cell (RBC) Count 2.56 mill/uL (4.20-5.40)
[2019-09-28 06:00] LABS: ALT (SGPT) 19 U/L (8-55); AST (SGOT) 23 U/L (5-34); Albumin 3.1 g/dL (3.4-4.8); Alkaline Phosphatase 99 U/L (40-110); Anion Gap 10 mmol/L (10-20); BUN (Urea Nitrogen) 13 mg/dL (9.8-20.1); Bilirubin, Total 0.9 mg/dL (0.2-1.2); Calc. Creatinine Clearance 48 mL/min (70-130); Calcium 8.6 mg/dL (7.8-10.44); Carbon Dioxide 24 mmol/L (23-31); Chloride 106 mmol/L (98-107); Estimated GFR-MDRD 52; Globulin 2.8 g/dL (2.4-3.5); Glucose 90 mg/dL (83-110); Potassium 4.3 mmol/L (3.5-5.1); Protein, Total 5.9 g/dL (6.0-8.3); Sodium 136 mmol/L (136-145)
--- NOTE | 2019-09-28 06:08 | PDOC.HOSPP ---
- Subjective Encounter Date: 09/27/19 Encounter Time: 18:00 Subjective: Patient seen and examined for Resp failure. Mild dry cough. Intermittent SOB. No other complaints. No overnight events - Objective Vital Signs & Weight: Vital Signs (12 hours) Temp Pulse Resp BP Pulse Ox 09/28/19 03:31 98 09/28/19 03:29 100.0 F H 77 24 H 116/56 L 88 L 09/28/19 02:00 98 09/27/19 20:18 99.4 F 77 18 116/55 L 92 L Weight Weight 138 lb 4.8 oz I&O: 09/26/19 09/27/19 09/28/19 06:59 06:59 06:59 Intake Total 1190 1851.7 1500 Output Total 1000 850 Balance 190 1001.7 1500 Result Diagrams: 09/28/19 04:53 09/28/19 04:53 Radiology Reviewed by me: Yes (CXR - Rt infiltrate) EKG Reviewed by me: Yes (Tele Sr) Hospitalist ROS - Review of Systems Cardiovascular: denies: chest pain, palpitations, orthopnea, paroxysmal noc. dyspnea, edema, light headedness, other Gastrointestinal: denies: nausea, vomiting, abdominal pain, diarrhea, constipation, melena, hematochezia, other - Medication Medications: Active Medications Generic Name Dose Route Start Last Admin Trade Name Freq PRN Reason Stop Dose Admin Acetaminophen 650 mg 09/25/19 13:33 09/27/19 08:33 Tylenol PO 650 mg Q4H PRN Administration Headache/Fever/Mild Pain (1-3) Acetaminophen 1,000 mg 09/25/19 16:01 09/26/19 08:37 Tylenol PO 1,000 mg Q6H PRN Administration Pain Apixaban 5 mg 09/25/19 21:00 09/27/19 20:20 Eliquis PO 5 mg BID DB Administration Digoxin 0.125 mg 09/27/19 09:00 09/27/19 07:30 Lanoxin PO 0.125 mg QAM DB Administration Doxycycline Hyclate 100 mg 09/25/19 21:00 09/27/19 20:20 Vibramycin PO 100 mg BID DB Administration Dronedarone 400 mg 09/25/19 21:00 09/27/19 20:20 Multaq PO 400 mg BID DB Administration Guaifenesin 600 mg 09/25/19 21:00 09/27/19 20:20 Mucinex PO 600 mg Q12HR DB Administration Cefepime HCl 1 gm/ Sodium 100 mls @ 200 mls/hr 09/26/19 21:00 09/27/19 20:23 Chloride IVPB 100 mls 0900,2100 DB Administration Pantoprazole Sodium 40 mg 09/26/19 09:00 09/27/19 07:29 Protonix PO 40 mg DAILY DB Administration Potassium Chloride 20 meq 09/27/19 09:00 09/27/19 07:28 Klor-Con 10 PO 20 meq QAM DB Administration Pramipexole Dihydrochloride 0.5 mg 09/25/19 21:00 09/27/19 20:20 Mirapex PO 0.5 mg HS DB Administration Rosuvastatin Calcium 5 mg 09/26/19 09:00 09/27/19 07:29 Crestor PO 5 mg QAM DB Administration Saccharomyces Boulardii 250 mg 09/26/19 09:00 09/27/19 07:29 Florastor PO 250 mg DAILY DB Administration Sodium Chloride 10 ml 09/25/19 13:33 09/27/19 20:20 Flush - Normal Saline IVF 10 ml PRN PRN Administration Saline Flush - Exam General Appearance: NAD Heart: RRR, no gallops Respiratory: no wheezes, rales (R), rhonchi (R) Gastrointestinal: soft, non-tender, non-distended, normal bowel sounds Extremities: no cyanosis Neurological: no new deficit Hosp A/P - Plan DVT proph w/SCDs 1. Acute hypoxic resp failure with Sepsis due to Pneumonia ?COVID 2. Paroxysmal atrial fibrillation, on anticoagulation, currently in sinus rhythm. 3. Chronic systolic heart failure, compensated. Sick sinus syndrome, status post pacemaker. 4. Chronic kidney disease, stage 3. 5. Recent ER visit for hyperkalemia. 6. Hypertension. 7. Degenerative joint disease. 8. Irritable bowel syndrome. 9. Restless legs syndrome. PLAN: Initial COVID negative Case d/w Dr Sanchez/Cardiology CXR - repeated per Dr Daniel STRICKLAND Hydroxycholorquine - per Dr Sanchez Cont IV Cefepime and Doxy Cardiology input appreciated Toprol on hold On Digoxin Cont Multaq Cont isolation DC IVF
[2019-09-28 06:28] LABS: Band 6 % (5-11); Eosinophils 2 % (0-10); Lymphocytes 28 % (21-51); MDiff Complete? YES; Mean Platelet Volume 8.3 fL (7.4-10.4); Monocytes 15 % (0-10); Neutrophil 48 % (42-75); Platelet Count 131 thou/uL (130-400); White Blood Cell (WBC) Count 5.1 thou/uL (4.8-10.8)
--- NOTE | 2019-09-28 07:01 | CON ---
DATE OF CONSULTATION: 09/27/2019 HISTORY OF PRESENT ILLNESS: I am seeing Ms. Barney at our [facility] Telemetry Floor as an electrophysiology consult and her problems are; 1. Persistent atrial fibrillation with s/p ablation including left atrial appendage isolation in the past. a. Recurrent atrial arrhythmias post ablation requiring Multaq initiation. 2. History diastolic heart failure. 3. Bradycardia, prompting a dual-chamber pacemaker implantation in the past and subsequent biventricular pacemaker upgrade. 4. Status post Watchman device. a. Last RYANN shows MINOR LEAK at the center of the DEVICE and subsequently was approved to come off Eliquis. b. Elquis now restarted post last PVAIin n June 2019. 5. History of hypertension. 6. Current admission with fever, rule out COVID. ALLERGIES: MORPHINE, . MEDICATIONS: 1. Eliquis. 2. Tylenol. 3. Crestor. 4. Toprol-XL. 5. Protonix. 6. Multaq. 7. Furosemide. SUBJECTIVE: Ms. Barney is here with fevers and dyspnea. She was subsequently admitted for ruling out COVID infection. Her viral swab detection results are pending. She had some dyspnea on admission and had some fevers, but now that this is subsiding, she had borderline temperatures only today. Her dyspnea also seems to be better. She denies PND or orthopnea. No neurological deficits. She denies palpitations. Dr. Woods was requested to be evaluating the patient and initiated digoxin in addition to the continued Multaq. Currently, she is feeling fair. She denies further dyspnea at rest. She denies PND or orthopnea. No chills. No cough is noted. Rest of review of systems otherwise unremarkable. PAST MEDICAL HISTORY: As above. SOCIAL HISTORY: The patient has a remote history of smoking, none recently. Denies EtOH or drug use. FAMILY HISTORY: Not contributory. OBJECTIVE DATA: VITAL SIGNS: Blood pressure this morning is 101/53, heart rate 79, respiratory rate 20, temperature 99.1 degrees Fahrenheit, oxygen saturation is 95% on room air. GENERAL: This is an alert and oriented elderly woman, in no apparent distress. NECK: Supple. Jugular veins not distended. CHEST: Coarse without crackles. HEART: Sounds are regular to rate and rhythm. No murmur or gallop. ABDOMEN: Benign. Bowel sounds positive. EXTREMITIES: Lower extremities without edema, clubbing, or cyanosis. Pulses are adequate. NEUROLOGIC: The patient is nonfocal. MUSCULOSKELETAL: No joint swelling or deformities. SKIN: Without rash. Left epicardial pacemaker insertion site is well healed. DATABASE: Reviewed. The chest x-rays from admission reveals sinus rhythm, mild congestion, moderate cardiomegaly, adequately located BiV pacemaker and Watchman device with coil is noted in the left atrial appendage area. Mild pleural effusion cannot be ruled out. LABORATORY DATA: Sodium was 138 and potassium 3.7 on admission. Currently sodium 135, potassium is 3.8, BUN is 13, creatinine 1.0. BNP on 09/24 was 445. White cell count this morning 5.3, hemoglobin 8, platelet count is 125. Nasopharyngeal swab for respiratory viral pathogen so far negative, although I do not see COVID-19 infection ruled out. I reviewed the pacer interrogation which was sent to our office remotely from September 23, 2019, revealing a [employer] Quad CERTIFIED PUBLIC ACCOUNTANT pacemaker with battery longevity of 8.7 years. Lead parameters are adequate, impedance is in normal range, sensing 0.1 mV in right atrium and 3 mV in right ventricle. LV threshold is 0.625 at 0.8 milliseconds. Persistent atrial fibrillation episodes noted before June, since then paroxysmal spells are seen, although still the atrial fibrillation is about 64%. is seen in about 18% of the atrial arrhythmias. Ventricular rate control is adequate. Optimal measurements are increasing since beginning of August. ASSESSMENT AND PLAN: Ms. Barney is a pleasant 73-year-old woman with history of recurrent atrial arrhythmias, repeat ablations, despite recurrent atrial fibrillation noted . Hence, she was initiated on Multaq in July and her ventricular rate control is adequate with this. She has been given extra dose of digoxin and now her ventricular rate is completely well controlled. There are some signs of possible vascular congestion on her x-ray, although clinically she does not appear markedly fluid overloaded. Diastolic heart failure has been a hallmark of her condition in the past. My assessment; 1. Paroxysmal atrial fibrillation is still recurrent and persists at times. If indeed viral infection is present, increasing atrial fibrillation burden will be expected. Hence, the ventricular rate control is adequate, at this point, I would continue Multaq and digoxin as well as metoprolol as well as tolerated. 2. EKG is reviewed revealing some degree of QT prolongation, at baseline QTc is 495, so this is in the setting of ventricular pacing and attention to be paid with concomitant use of QT prolonging agents like hydroxychloroquine and Multaq. For now, hydroxychloroquine has been stopped. No ventricular arrhythmia noted. Continue Multaq as it seems to be controlling ventricular rates well. 3. History of ablation about 3 months. Plan to continue Eliquis three months post ablation, till the end of September. Should there be bleeding issues occur, it would be reasonable to stop the Eliquis even earlier and resume aspirin only for antithrombotic regimen. 4. Bi-V pacemaker with adequate function on recent interrogation without apparent malfunction, continue monitoring, some degree of atrial undersensing could lead to pacing during atrial fibrillation, likely not to be causing major issues for her. Continue monitoring. 5. Status post Watchman device with RYANN suggestive of sufficient exclusion of the left atrial appendage, and can be coming off Eliquis as detailed above at the end of September. 6. COVID infection rule out as per primary team. Job ID: [id number] [facility]OSPITALAspen
[2019-09-28] MEDS: Digoxin 0.125 MG TAB PO SCH (08:47)
[2019-09-28] MEDS: Rosuvastatin 5 MG TAB PO SCH (08:47)
[2019-09-28] MEDS: Saccharomyces boulardii 250 MG CAP PO SCH (08:47)
[2019-09-28] MEDS: Apixaban 5 MG TAB PO SCH ×2 (08:47→20:52)
[2019-09-28] MEDS: Doxycycline 100 MG CAP PO SCH ×2 (08:47→20:52)
[2019-09-28] MEDS: Potassium Chloride 10 MEQ TAB PO SCH (08:47)
[2019-09-28] MEDS: guaiFENesin ER 600 MG TAB PO SCH ×2 (08:48→20:53)
[2019-09-28] MEDS: Dronedarone HCl 400 MG TAB PO SCH ×2 (08:48→20:53)
[2019-09-28] MEDS: Cefepime 1 GM in Sodium Chloride 0.9% 100 ML IVPB SCH ×2 (08:48→20:52)
[2019-09-28] MEDS: Multivitamin W/ Minerals 1 TAB PO SCH (08:48)
[2019-09-28] MEDS ORDERED: Furosemide 40 MG/4 ML VIAL SLOW IVP SCH (11:15)
--- NOTE | 2019-09-28 14:54 | PDOC.HOSPP ---
- Subjective Encounter Date: 09/28/19 Encounter Time: 09:30 Subjective: Patient seen and examined for ?COVID. SOB on mild exertion. Feels the same. No new complaints. No overnight events - Objective Vital Signs & Weight: Vital Signs (12 hours) Temp Pulse Resp BP Pulse Ox 09/28/19 12:50 99.2 F 78 18 125/57 L 93 L 09/28/19 08:56 99 F 81 17 115/59 L 95 09/28/19 07:40 98 09/28/19 03:31 98 09/28/19 03:29 100.0 F H 77 24 H 116/56 L 88 L Weight Weight 138 lb 4.8 oz I&O: 09/27/19 09/28/19 09/29/19 06:59 06:59 06:59 Intake Total 1851.7 2070 237 Output Total 850 Balance 1001.7 2070 237 Result Diagrams: 09/28/19 04:53 09/28/19 04:53 EKG Reviewed by me: Yes (Tele SR) Hospitalist ROS - Review of Systems Respiratory: denies: cough, dry, shortness of breath, hemoptysis, SOB with excertion, pleuritic pain, sputum, wheezing, other Cardiovascular: denies: chest pain, palpitations, orthopnea, paroxysmal noc. dyspnea, edema, light headedness, other - Medication Medications: Active Medications Generic Name Dose Route Start Last Admin Trade Name Freq PRN Reason Stop Dose Admin Acetaminophen 650 mg 09/25/19 13:33 09/27/19 08:33 Tylenol PO 650 mg Q4H PRN Administration Headache/Fever/Mild Pain (1-3) Acetaminophen 1,000 mg 09/25/19 16:01 09/26/19 08:37 Tylenol PO 1,000 mg Q6H PRN Administration Pain Apixaban 5 mg 09/25/19 21:00 09/28/19 08:47 Eliquis PO 5 mg BID DB Administration Digoxin 0.125 mg 09/27/19 09:00 09/28/19 08:47 Lanoxin PO 0.125 mg QAM DB Administration Doxycycline Hyclate 100 mg 09/25/19 21:00 09/28/19 08:47 Vibramycin PO 100 mg BID DB Administration Dronedarone 400 mg 09/25/19 21:00 09/28/19 08:48 Multaq PO 400 mg BID DB Administration Guaifenesin 600 mg 09/25/19 21:00 09/28/19 08:48 Mucinex PO 600 mg Q12HR DB Administration Cefepime HCl 1 gm/ Sodium 100 mls @ 200 mls/hr 09/26/19 21:00 09/28/19 08:48 Chloride IVPB 100 mls 0900,2100 DB Administration Iron/Minerals/Multivitamins 1 tab 09/28/19 09:00 09/28/19 08:48 Theragran M PO 1 tab DAILY DB Administration Pantoprazole Sodium 40 mg 09/26/19 09:00 09/28/19 08:48 Protonix PO 40 mg DAILY DB Administration Potassium Chloride 20 meq 09/27/19 09:00 09/28/19 08:47 Klor-Con 10 PO 20 meq QAM DB Administration Pramipexole Dihydrochloride 0.5 mg 09/25/19 21:00 09/27/19 20:20 Mirapex PO 0.5 mg HS DB Administration Rosuvastatin Calcium 5 mg 09/26/19 09:00 09/28/19 08:47 Crestor PO 5 mg QAM DB Administration Saccharomyces Boulardii 250 mg 09/26/19 09:00 09/28/19 08:47 Florastor PO 250 mg DAILY DB Administration Sodium Chloride 10 ml 09/25/19 13:33 09/27/19 20:20 Flush - Normal Saline IVF 10 ml PRN PRN Administration Saline Flush - Exam General Appearance: NAD Neck: supple, no JVD Heart: RRR, no gallops Respiratory: no wheezes, rhonchi Gastrointestinal: soft, non-distended Extremities: no cyanosis Hosp A/P - Plan 1. Acute hypoxic resp failure with Sepsis due to Pneumonia ?COVID 2. Paroxysmal atrial fibrillation, on anticoagulation, currently in sinus rhythm. 3. Chronic systolic heart failure, compensated. Sick sinus syndrome, status post pacemaker. 4. Chronic kidney disease, stage 3. 5. Recent ER visit for hyperkalemia. 6. Hypertension. 7. Degenerative joint disease. 8. Irritable bowel syndrome. 9. Restless legs syndrome. 10. Chronic Anemia PLAN: Initial COVID negative - repeat test pending Hydroxycholorquine dced per Dr Sanchez Cont IV Cefepime and Doxy Lasix started per Cardiology Toprol on hold Cont Digoxin/Multaq On isolation AM labs - monitor HH
[2019-09-28] MEDS: Pramipexole Di-HCl 0.25 MG TAB PO SCH (20:53)
[2019-09-28] MEDS: Acetaminophen 500 MG TAB PO PRN (20:58)
[2019-09-29 05:32] LABS: ALT (SGPT) 20 U/L (8-55); AST (SGOT) 27 U/L (5-34); Albumin 3.2 g/dL (3.4-4.8); Alkaline Phosphatase 110 U/L (40-110); Anion Gap 10 mmol/L (10-20); BUN (Urea Nitrogen) 18 mg/dL (9.8-20.1); Bilirubin, Total 0.9 mg/dL (0.2-1.2); Calc. Creatinine Clearance 44 mL/min (70-130); Calcium 8.9 mg/dL (7.8-10.44); Carbon Dioxide 25 mmol/L (23-31); Chloride 106 mmol/L (98-107); Estimated GFR-MDRD 46; Globulin 3.1 g/dL (2.4-3.5); Glucose 82 mg/dL (83-110); Potassium 4.1 mmol/L (3.5-5.1); Protein, Total 6.3 g/dL (6.0-8.3); Sodium 137 mmol/L (136-145)
[2019-09-29 05:43] LABS: Eosinophils 3 % (0-10); Hemoglobin 8.5 g/dL (12.0-16.0); Lymphocytes 29 % (21-51); MDiff Complete? YES; Mean Corpuscular HGB CONC 33.4 g/dL (32.0-36.0); Mean Corpuscular Hemoglobin 31.3 pg (27.0-31.0); Mean Corpuscular Volume 93.8 fL (78.0-98.0); Mean Platelet Volume 8.4 fL (7.4-10.4); Monocytes 15 % (0-10); Neutrophil 53 % (42-75); Platelet Count 158 thou/uL (130-400); RBC Distribution Width 13.1 % (11.5-14.5); Red Blood Cell (RBC) Count 2.71 mill/uL (4.20-5.40); White Blood Cell (WBC) Count 4.5 thou/uL (4.8-10.8)
[2019-09-29] MEDS ORDERED: Furosemide 40 MG TAB PO SCH (07:30)
[2019-09-29] MEDS: Potassium Chloride 10 MEQ TAB PO SCH (08:48)
[2019-09-29] MEDS: Apixaban 5 MG TAB PO SCH (08:48)
[2019-09-29] MEDS: Digoxin 0.125 MG TAB PO SCH (08:49)
[2019-09-29] MEDS: guaiFENesin ER 600 MG TAB PO SCH (08:50)
[2019-09-29] MEDS: Dronedarone HCl 400 MG TAB PO SCH (08:51)
[2019-09-29] MEDS: Multivitamin W/ Minerals 1 TAB PO SCH (08:51)
[2019-09-29] MEDS: Doxycycline 100 MG CAP PO SCH (08:51)
[2019-09-29] MEDS: Rosuvastatin 5 MG TAB PO SCH (08:51)
[2019-09-29] MEDS: Saccharomyces boulardii 250 MG CAP PO SCH (08:52)
[2019-09-29] MEDS: Cefepime 1 GM in Sodium Chloride 0.9% 100 ML IVPB SCH (08:53)
[2019-09-29 11:59] VITALS: BP 115/56; TEMP 98.5
--- NOTE | 2019-09-29 20:44 | DIS ---
DATE OF ADMISSION: 09/26/2019 DATE OF DISCHARGE: 09/29/2019 DISCHARGE DIAGNOSES: 1. Pneumonia. 2. Paroxysmal atrial fibrillation with rapid ventricular response. 3. Severe mitral regurgitation. 4. Acute on chronic systolic heart failure. 5. Acute hypoxic respiratory failure. 6. Chronic kidney disease, stage 3. HISTORY: This patient is a 73-year-old female, with a history of sick sinus syndrome with pacemaker placement, paroxysmal atrial fibrillation, and severe mitral regurgitation. The patient presented to the hospital initially with a report of fever, sore throat, and some mild shortness of breath with exertion. She had an initial chest x-ray which was unremarkable. White count was 5.3. BNP was 445. Negative troponin. HOSPITAL COURSE: Patient was admitted with concern for possible COVID. She had initial screen performed. However, she developed atrial fibrillation with rapid ventricular response initially. She was continued on beta elia. She was seen in consultation by Cardiology, who felt she had relatively good rate control at that time especially in the setting of potential infection. Recommended addition of low-dose digoxin which was initiated. EP was consulted and again felt that she had reasonable rate control. Recommended continuation of Multaq, beta elia, and the low-dose digoxin. Patient's repeat chest x-ray did show some evidence of what appeared to be worsening airspace opacity concerning for edema. She was diuresed and subsequently felt significantly better. She was not short of breath. She had no cough. She was weaned off oxygen and was able to ambulate quite well on room air without any shortness of breath. Her fever curve significantly improved. Her COVID test came back negative, but in light of her subsequent chest x-ray findings, a repeat test was obtained which also returned negative. With that, the patient was felt to be stable for outpatient treatment. PHYSICAL EXAMINATION: VITAL SIGNS: On the day of discharge, temperature is 98.5, pulse 80, respirations 16, O2 saturation 96% on room air, and BP 115/56. GENERAL: She was awake, alert, pleasant, cooperative, quite comfortable without any oxygen. HEART: Regular without murmurs. LUNGS: Clear to auscultation with no wheezes, no rales. Good chest expansion. ABDOMEN: Soft and nontender. EXTREMITIES: No edema. DISPOSITION: Patient is discharged to home in stable condition. ACTIVITY: She will have activity as tolerated. DIET: Her diet is heart healthy, low-sodium. MEDICATIONS: 1. Digoxin 0.125 mg one p.o. daily. 2. Doxycycline 100 mg p.o. b.i.d. 3. Cefdinir 300 mg b.i.d. 4. Mirapex 0.5 mg at bedtime. 5. Eliquis 5 mg b.i.d. 6. Tylenol p.r.n. 7. Rosuvastatin 5 mg daily. 8. Metoprolol 12.5 mg b.i.d. 9. Protonix 40 mg daily. 10. Multaq 400 mg one p.o. b.i.d. 11. Lasix 40 mg daily as needed. FOLLOWUP: She is to follow up with her PCP, and with Dr. Kasper. She can return to the hospital at anytime should she have the need to do so. TIME SPENT: Total time in discharge activity is greater than 30 minutes. Job ID: [id number]
--- NOTE | 2019-10-01 22:44 | PQF ---
[employer] Equipment Operator Crystal Reports Winform Viewer UMUJULIEN STEVENS KIEL HOOD MD [id number] [address] [place] [address] [id number] CLINICAL DOCUMENTATION CLARIFICATION FORM: POST DISCHARGE Addendum to original discharge summary date: ____ Late entry note date: __ DATE: 10/01/19 ATTN: Kiel Carson Please exercise your independent, professional judgment in responding to the clarification form. Clinical indicators are provided on the bottom of this form for your review Can you please further clarify if Sepsis is ruled in or ruled out? Sepsis [ ] Ruled in diagnosis [ ] Continue to treat [ ] Resolved [ x ] Ruled out diagnosis [ ] Cannot rule out diagnosis [ ] Other diagnosis [ ] Unable to determine In addition, please specify: Present on Admission (POA): [ ] Yes [ ] No [ ] Unable to determine For continuity of documentation, please document condition throughout progress notes and discharge summary. Thank You. CLINICAL INDICATORS - SIGNS / SYMPTOMS / LABS H and P pg.1- fever with sore throat Hospitalist PN 09/25 pg.5- Sepsis/fever with sore throat Hospitalist PN 09/26 pg.5- Acute hypoxic respi failure with sepsis due to pneumonia DS pg.1- Discharged diagnosis: Pneumonia RISK FACTORS Pneumonia- DS pg.1 Paroxysmal A.fib- DS pg.1 Acute on chronic systolic CHF- DS pg.1 Acute hypoxic respiratory failure- DS pg.1 73 years old- DS pg.1 CKD 3- DS pg.1 TREATMENTS Chest X ray 09/26 Blood culture- Microbiology 09/24 Urine culture- Microbiology 09/24 IV Fluids- MAR Cefepime HCl 1gm- IV MAR (This form is maintained as a part of the permanent medical record) 2014 [employer]. All Rights Reserved [email or web address]
--- NOTE | 2019-10-04 07:34 | EKG ---
Test Reason : STAT Blood Pressure : / mmHG Vent. Rate : 099 BPM Atrial Rate : 072 BPM P-R Int : 000 ms QRS Dur : 088 ms QT Int : 386 ms P-R-T Axes : 000 083 256 degrees QTc Int : 495 ms Electronic ventricular pacemaker When compared with ECG of 21-SEP-2019 13:19, Vent. rate has increased BY 10 BPM Confirmed by ARNOL WORRELL MD ([id number]) on 10/04/2019 7:34:05 AM Referred By: ANNIE Confirmed By:ARNOL WORRELL MD
--- NOTE | 2019-10-05 10:21 | PQF ---
JULIEN SANZ DAVID R MD [id number] [facility] [id number] CLINICAL DOCUMENTATION CLARIFICATION FORM: POST DISCHARGE Addendum to original discharge summary date: ____ Late entry note date: __ DATE:10-05-2019 ATTN: Matt Carson Please exercise your independent, professional judgment in responding to the clarification form. Clinical indicators are provided on the bottom of this form for your review Diagnosis: Acute on chronic systolic heart failure Present on Admission (POA): [x ] Yes [ ] No [ ] Unable to determine Coding guidelines require hospitals to identify whether a diagnosis was present on admission (POA) or not. To accurately assign the appropriate POA indicator, this information must be clearly documented within the medical record. CLINICAL INDICATORS - SIGNS / SYMPTOMS / LABS HP 09/[address] Tillman She was also getting short of breath on mild to moderate exertion HP 09/24pg3 Dr. Tillman BNP was 445 HP 09/[address] Tillman Chronic systolic heart failure compensated Consult 09/25 pg1 The patient has developed congestive heart failure Imaging-Chest Xray 09/26 Dr. Koch Impression: Persistent cardiomegaly and pulmonary vascular congestion, and now new small bilateral pleural effusions. Component of CHF suspected DS 09/28 Dr. Carson Discharge Diagnosis: Acute on chronic systolic heart failure RISK FACTORS: HP 09/24 Dr. Tillman-Cardiomyopathy HP 09/24 Dr. Tillman-Paroxysmal Atrial Fibrillation HP 09/24 Dr. Tillman-HTN HP 09/24 Dr. Tillman-Hyperlipidemia HP 09/24 Dr. Tillman-CKD stage3 HP 09/24 Dr. Tillman-73 years old female HP 09/24 Dr. Tillman-SSS TREATMENT: Imaging-Chest Xray 09/26 Dr. Koch Furosemide 40mg IV 09/27 Digoxin 0.125mg PO 09/25 MAR Cardio Consult 09/25 Dr. Woods Electrocardiogram-Collected 09/25 (This form is maintained as a part of the permanent medical record) 2014 [employer]. All Rights Reserved [email or web address]
== END 2019-09-29 15:09 | disposition home or self-care (01) | DRG 291 ==
LOC: 2SW 12:04 → OBSVTOIN 09-26 10:52
PROVIDERS: ADMIT Internal Medicine; ATTEND Internal Medicine
PROC: 8E0ZXY6 Isolation (ICD-10-PCS; principal; 2019-09-26)
DX: I13.0 Hypertensive heart and chronic kidney disease with heart failure and stage 1 through stage 4 chronic kidney disease, or unspecified chronic kidney disease (principal); J18.9 Pneumonia, unspecified organism; I50.23 Acute on chronic systolic (congestive) heart failure; J96.01 Acute respiratory failure with hypoxia; I48.19 Other persistent atrial fibrillation; I48.0 Paroxysmal atrial fibrillation; I34.0 Nonrheumatic mitral (valve) insufficiency; N18.3 Chronic kidney disease, stage 3 (moderate); I49.5 Sick sinus syndrome; E78.5 Hyperlipidemia, unspecified; G25.81 Restless legs syndrome; I42.8 Other cardiomyopathies; K80.20 Calculus of gallbladder without cholecystitis without obstruction; Z20.828 Contact with and (suspected) exposure to other viral communicable diseases; E87.5 Hyperkalemia; K58.9 Irritable bowel syndrome, unspecified; Z95.0 Presence of cardiac pacemaker; Z95.1 Presence of aortocoronary bypass graft; Z90.49 Acquired absence of other specified parts of digestive tract; Z95.5 Presence of coronary angioplasty implant and graft; Z88.5 Allergy status to narcotic agent; Z91.048 Other nonmedicinal substance allergy status; Z79.899 Other long term (current) drug therapy; Z79.01 Long term (current) use of anticoagulants
CPT/HCPCS: 36415; 71045; 80053; 81001; 82550; 82728; 83605; 83735; 83880; 84100; 84145; 84484; 85007; 85027; 86140; 87040; 87086; 87633; 87635; 93005; 93010; 94760; J0692; J1160; J1940; J3490; J7070; U0002

== ENCOUNTER 2021-03-11 21:18 | Emergency (ER) | payer MEDICARE, OTHER ==
[2021-03-11] MEDS ORDERED: Triple Antibiotic Oint 1 GM Packet ONE (21:51)
== END 2021-03-11 22:14 | disposition home or self-care (01) ==
LOC: ERS 21:18
DX: L03.114 Cellulitis of left upper limb (principal); I10 Essential (primary) hypertension; I48.91 Unspecified atrial fibrillation
CPT/HCPCS: 99283

== ENCOUNTER 2021-06-30 11:45 | Emergency (ER) | payer MEDICARE, OTHER ==
[2021-07-01 00:48] LABS: SARS-CoV-2 PCR by NAA Not Detected (NotDetected)
== END 2021-06-30 12:25 | disposition home or self-care (01) ==
LOC: ERS 11:45
DX: Z20.822 Contact with and (suspected) exposure to COVID-19 (principal); I10 Essential (primary) hypertension; I48.91 Unspecified atrial fibrillation
CPT/HCPCS: 99283; U0003; U0005

== ENCOUNTER 2021-07-02 08:35 | Outpatient (CLI) | payer MEDICARE, OTHER ==
[2021-07-02] MEDS ORDERED: EPINEPHrine 1 MG/ML AMP ONE (09:30)
[2021-07-02] MEDS ORDERED: Iopamidol 300 61% 50 ML VIAL FS ONE (09:30)
[2021-07-02] MEDS ORDERED: Lidocaine 1% PF 10 ML AMP ONE (09:30)
== END 2021-07-02 08:36 | disposition home or self-care (01) ==
LOC: RAD 08:35
PROVIDERS: ATTEND Orthopaedic Surgery
DX: M75.121 Complete rotator cuff tear or rupture of right shoulder, not specified as traumatic (principal); M62.511 Muscle wasting and atrophy, not elsewhere classified, right shoulder
CPT/HCPCS: 23350; J0171; J2001; Q9967

== ENCOUNTER 2021-12-22 21:23 | Inpatient (IN) | payer MEDICARE, OTHER ==
[2021-12-22] MEDS ORDERED: Aspirin Chewable 81 MG TAB ONE (21:41)
[2021-12-22 21:45] LABS: #Basophils 0.1 thou/uL (0.0-0.2); #Eosinphils 0.3 thou/uL (0.0-0.7); #Lymphocytes 1.9 thou/uL (1.20-3.40); #Monocytes 0.7 thou/uL (0.11-0.59); #Neutrophils 6.5 thou/uL (1.40-6.50); %Basophils 0.6 % (0.0-1.0); %Eosinophils 3.5 % (0.0-10.0); %Lymphocytes 19.8 % (21.0-51.0); %Monocytes 7.6 % (0.0-10.0); %Neutrophils 68.5 % (42.0-75.0); Hemoglobin 13.7 g/dL (12.0-16.0); Mean Corpuscular HGB CONC 33.1 g/dL (32.0-36.0); Mean Corpuscular Hemoglobin 32.3 pg (27.0-31.0); Mean Corpuscular Volume 97.4 fL (78.0-98.0); Platelet Count 244 thou/uL (130-400); RBC Distribution Width 12.3 % (11.5-14.5); Red Blood Cell (RBC) Count 4.26 mill/uL (4.20-5.40); White Blood Cell (WBC) Count 9.4 thou/uL (4.8-10.8)
[2021-12-22 22:16] LABS: AST (SGOT) 30 U/L (5-34); Anion Gap 13 mmol/L (10-20); Bilirubin, Total 0.6 mg/dL (0.2-1.2); Calcium 9.8 mg/dL (7.8-10.44); Carbon Dioxide 28 mmol/L (23-31); Chloride 104 mmol/L (98-107); Potassium 4.2 mmol/L (3.5-5.1); Protein, Total 7.5 g/dL (5.8-8.1); Sodium 141 mmol/L (136-145)
[2021-12-22 22:18] LABS: Globulin 3.5 g/dL (2.4-3.5)
[2021-12-22 22:21] LABS: Glucose 96 mg/dL (83-110)
[2021-12-22 22:23] LABS: Alkaline Phosphatase 62 U/L (40-110)
[2021-12-22 22:24] LABS: Calc. Creatinine Clearance 0 mL/min (70-130); Estimated GFR 46
[2021-12-22 22:25] LABS: BUN (Urea Nitrogen) 21 mg/dL (9.8-20.1)
[2021-12-22 22:26] LABS: ALT (SGPT) 31 U/L (8-55)
[2021-12-22] MEDS ORDERED: Zolpidem Tartrate 5 MG TAB PO PRN (22:37)
[2021-12-22] MEDS ORDERED: Acetaminophen 325 MG TAB PO PRN (22:37)
[2021-12-22] MEDS ORDERED: Ondansetron PF 4 MG/2 ML Vial IVP PRN (22:37)
[2021-12-22] MEDS ORDERED: Bisacodyl 5 MG TAB PO PRN (22:37)
[2021-12-22] MEDS ORDERED: Nitroglycerin 0.4 MG TAB (25 Tab Bottle) SL PRN (22:37)
[2021-12-22] MEDS ORDERED: Furosemide 40 MG TAB PO PRN (22:39)
[2021-12-22] MEDS ORDERED: Pantoprazole 40 MG VIAL IVP SCH (22:45)
[2021-12-22] MEDS ORDERED: Aspirin 325 MG TAB PO SCH (22:45)
[2021-12-22 23:03] LABS: Digoxin 1.44 ng/mL (0.8-2.0)
[2021-12-23] MEDS ORDERED: Pantoprazole 40 MG VIAL ONE (00:12)
[2021-12-23 00:20] LABS: Troponin I Less than 0.010 ng/mL (< 0.028)
[2021-12-23 01:06] LABS: SARS-CoV-2 NAA Rapid Test Not Detected (NotDetected)
[2021-12-23 03:37] LABS: #Eosinphils 0.4 thou/uL (0.0-0.7); #Lymphocytes 1.8 thou/uL (1.20-3.40); #Monocytes 0.7 thou/uL (0.11-0.59); #Neutrophils 5.1 thou/uL (1.40-6.50); %Basophils 0.4 % (0.0-1.0); %Eosinophils 4.7 % (0.0-10.0); %Lymphocytes 22.4 % (21.0-51.0); %Monocytes 8.5 % (0.0-10.0); %Neutrophils 64.1 % (42.0-75.0); Hemoglobin 11.7 g/dL (12.0-16.0); Mean Corpuscular HGB CONC 33.4 g/dL (32.0-36.0); Mean Corpuscular Hemoglobin 32.6 pg (27.0-31.0); Mean Corpuscular Volume 97.6 fL (78.0-98.0); Mean Platelet Volume 7.1 fL (7.4-10.4); Platelet Count 199 thou/uL (130-400); RBC Distribution Width 12.4 % (11.5-14.5); Red Blood Cell (RBC) Count 3.58 mill/uL (4.20-5.40)
[2021-12-23 03:55] LABS: ALT (SGPT) 22 U/L (8-55); AST (SGOT) 24 U/L (5-34); Albumin 3.4 g/dL (3.4-4.8); Alkaline Phosphatase 54 U/L (40-110); Anion Gap 11 mmol/L (10-20); BUN (Urea Nitrogen) 19 mg/dL (9.8-20.1); Bilirubin, Total 0.4 mg/dL (0.2-1.2); Calc. Creatinine Clearance 34 mL/min (70-130); Calcium 9.1 mg/dL (7.8-10.44); Carbon Dioxide 25 mmol/L (23-31); Cardiac Risk 4.8 (Less than 4.5); Chloride 108 mmol/L (98-107); Cholesterol 150 mg/dl (< 200 Desired); Estimated GFR 55; Globulin 2.8 g/dL (2.4-3.5); Glucose 94 mg/dL (83-110); HDL Cholesterol 31 mg/dL (>60 Neg Risk); LDL Cholesterol, Calculated 79 mg/dL; Potassium 4.3 mmol/L (3.5-5.1); Protein, Total 6.2 g/dL (5.8-8.1); Sodium 140 mmol/L (136-145); Triglycerides 199 mg/dL (Less than 150)
[2021-12-23 03:56] LABS: Troponin I Less than 0.010 ng/mL (< 0.028)
[2021-12-23 06:38] LABS: Troponin I Less than 0.010 ng/mL (< 0.028)
[2021-12-23] MEDS ORDERED: Clopidogrel Bisulfate 75 MG TAB PO SCH (09:00)
[2021-12-23] MEDS ORDERED: Enoxaparin Sodium 30 MG/0.3 ML SYRINGE SC SCH (09:00)
[2021-12-23] MEDS ORDERED: Aspirin Chewable 81 MG TAB ONE (10:12)
[2021-12-23] MEDS ORDERED: Digoxin 0.125 MG TAB ONE (10:12)
[2021-12-23] MEDS ORDERED: Clopidogrel Bisulfate 75 MG TAB ONE (10:12)
[2021-12-23] MEDS: Aspirin Chewable 81 MG TAB PO SCH (10:19)
[2021-12-23] MEDS: Dronedarone HCl 400 MG TAB PO SCH ×2 (10:21→20:49)
[2021-12-23] MEDS: Pramipexole Di-HCl 0.25 MG TAB PO SCH ×2 (10:21→14:23)
[2021-12-23] MEDS: Digoxin 0.125 MG TAB PO SCH (10:26)
[2021-12-23 20:20] VITALS: BMI 18.4
[2021-12-23] MEDS: Pramipexole Di-HCl 1 MG TAB PO SCH (20:47)
[2021-12-23] MEDS: Metoprolol Tartrate 25 MG TAB PO SCH (20:48)
[2021-12-24] MEDS ORDERED: Enoxaparin Sodium 40 MG/0.4 ML SYRINGE SC SCH (09:00)
[2021-12-24 09:16] LABS: Anion Gap 12 mmol/L (10-20); BUN (Urea Nitrogen) 20 mg/dL (9.8-20.1); Calc. Creatinine Clearance 35 mL/min (70-130); Calcium 9.2 mg/dL (7.8-10.44); Carbon Dioxide 25 mmol/L (23-31); Chloride 106 mmol/L (98-107); Estimated GFR 54; Glucose 97 mg/dL (83-110); Potassium 4.4 mmol/L (3.5-5.1); Sodium 139 mmol/L (136-145)
[2021-12-24] MEDS: Aspirin Chewable 81 MG TAB PO SCH (13:28)
[2021-12-24] MEDS: Digoxin 0.125 MG TAB PO SCH (13:31)
[2021-12-24] MEDS: Dronedarone HCl 400 MG TAB PO SCH ×2 (13:31→20:10)
[2021-12-24] MEDS: Metoprolol Tartrate 25 MG TAB PO SCH ×2 (14:13→20:10)
[2021-12-24] MEDS ORDERED: Communication Order-Pharmacy FS PRN (16:45)
[2021-12-24] MEDS: Pramipexole Di-HCl 1 MG TAB PO SCH (20:09)
[2021-12-25] MEDS: Aspirin Chewable 81 MG TAB PO SCH (06:01)
[2021-12-25] MEDS: Dronedarone HCl 400 MG TAB PO SCH (06:01)
[2021-12-25] MEDS: Digoxin 0.125 MG TAB PO SCH (06:01)
[2021-12-25] MEDS: Metoprolol Tartrate 25 MG TAB PO SCH (06:02)
[2021-12-25] MEDS ORDERED: Lidocaine 1% (PF) 30 ML VIAL ONE (06:37)
[2021-12-25] MEDS ORDERED: Midazolam HCl 2 mg/2 ml Vial ONE (07:35)
[2021-12-25] MEDS ORDERED: Sodium Chloride 0.9% 200 ML IV PRN (08:00)
[2021-12-25] MEDS ORDERED: Nitroglycerin 0.4 MG TAB (25 Tab Bottle) SL PRN (08:00)
[2021-12-25] MEDS ORDERED: Iopamidol 370 76% 100 ML VIAL ONE (09:49)
[2021-12-25 11:41] VITALS: TEMP 97.8
[2021-12-25 13:38] VITALS: BP 110/58
== END 2021-12-25 13:25 | disposition home or self-care (01) | DRG 287 ==
LOC: ERS 21:23 → ERHOLD 22:37 → OBSVTOIN 12-23 16:48 → 2SW 12-23 17:12
PROVIDERS: ADMIT Hospitalist; ATTEND Hospitalist
PROC: 4B02XTZ Measurement of Cardiac Defibrillator, External Approach (ICD-10-PCS; principal; 2021-12-23)
PROC: 4A023N7 Measurement of Cardiac Sampling and Pressure, Left Heart, Percutaneous Approach (ICD-10-PCS; 2021-12-25)
PROC: B2111ZZ Fluoroscopy of Multiple Coronary Arteries using Low Osmolar Contrast (ICD-10-PCS; 2021-12-25)
PROC: B2151ZZ Fluoroscopy of Left Heart using Low Osmolar Contrast (ICD-10-PCS; 2021-12-25)
DX: T82.847A Pain due to cardiac prosthetic devices, implants and grafts, initial encounter (principal); I50.22 Chronic systolic (congestive) heart failure; I13.0 Hypertensive heart and chronic kidney disease with heart failure and stage 1 through stage 4 chronic kidney disease, or unspecified chronic kidney disease; I48.19 Other persistent atrial fibrillation; I42.8 Other cardiomyopathies; I25.10 Atherosclerotic heart disease of native coronary artery without angina pectoris; I49.5 Sick sinus syndrome; N18.30 Chronic kidney disease, stage 3 unspecified; G25.81 Restless legs syndrome; F03.90 Unspecified dementia, unspecified severity, without behavioral disturbance, psychotic disturbance, mood disturbance, and anxiety; Z98.890 Other specified postprocedural states; Z95.810 Presence of automatic (implantable) cardiac defibrillator; Z88.5 Allergy status to narcotic agent; Z88.7 Allergy status to serum and vaccine; Z79.899 Other long term (current) drug therapy; Z79.01 Long term (current) use of anticoagulants; Z95.1 Presence of aortocoronary bypass graft; Z90.49 Acquired absence of other specified parts of digestive tract; Z95.828 Presence of other vascular implants and grafts; Z79.82 Long term (current) use of aspirin; Z87.01 Personal history of pneumonia (recurrent)
CPT/HCPCS: 36415; 71045; 78452; 80048; 80053; 80061; 80162; 83880; 84484; 85025; 93005; 93010; 93017; 93458; 94760; 96374; 99152; A9500; C9113; G0378; J2001; J2250; Q9967; U0002

== ENCOUNTER 2022-10-15 13:07 | Emergency (ER) | payer MEDICARE, OTHER ==
[2022-10-15] MEDS ORDERED: Acetaminophen 500 MG TAB ONE (14:18)
[2022-10-15 14:42] LABS: #Monocytes 1.2 thou/uL (0.11-0.59); #Neutrophils 6.9 thou/uL (1.40-6.50); %Basophils 0.1 % (0.0-1.0); %Eosinophils 0.2 % (0.0-10.0); %Lymphocytes 10.8 % (21.0-51.0); %Monocytes 13.4 % (0.0-10.0); %Neutrophils 75.5 % (42.0-75.0); Hemoglobin 12.7 g/dL (12.0-16.0); Mean Corpuscular HGB CONC 33.6 g/dL (32.0-36.0); Mean Corpuscular Hemoglobin 32.7 pg (27.0-31.0); Mean Corpuscular Volume 97.5 fl (78.0-98.0); Mean Platelet Volume 7.7 fL (7.4-10.4); Platelet Count 160 10x3/uL (130-400); Red Blood Cell (RBC) Count 3.88 mill/uL (4.20-5.40); White Blood Cell (WBC) Count 9.1 10x3/uL (4.8-10.8)
[2022-10-15 15:01] LABS: SARS-CoV-2 NAA Rapid Test DETECTED (NotDetected)
[2022-10-15 15:08] LABS: ALT (SGPT) 46 U/L (8-55); AST (SGOT) 48 U/L (5-34); Albumin 3.6 g/dL (3.4-4.8); Alkaline Phosphatase 101 U/L (40-110); Anion Gap 11 mmol/L (10-20); BUN (Urea Nitrogen) 12 mg/dL (9.8-20.1); Bilirubin, Total 0.4 mg/dL (0.2-1.2); Calc. Creatinine Clearance 0 mL/min (70-130); Calcium 8.7 mg/dL (7.8-10.44); Carbon Dioxide 25 mmol/L (23-31); Chloride 102 mmol/L (98-107); Estimated GFR 43; Globulin 3.4 g/dL (2.4-3.5); Glucose 97 mg/dL (83-110); Lipase 32 U/L (8-78); Potassium 4.3 mmol/L (3.5-5.1); Sodium 134 mmol/L (136-145)
[2022-10-15] MEDS ORDERED: Benzonatate 100 MG CAP ONE (15:14)
== END 2022-10-15 17:47 | disposition home or self-care (01) ==
LOC: ERS 13:07
DX: U07.1 COVID-19 (principal); I10 Essential (primary) hypertension; Z20.822 Contact with and (suspected) exposure to COVID-19
CPT/HCPCS: 0240U; 71045; 80053; 83605; 83690; 83735; 84484; 85025; 93005; 99284; 36415

== ENCOUNTER 2024-01-10 10:50 | Outpatient (CLI) | payer MEDICARE, OTHER | END 2024-01-10 10:51 | disposition home or self-care (01) | LOC: BICRAD 10:50 | PROVIDERS: ATTEND Nurse Practitioner Family | DX: M51.16 Intervertebral disc disorders with radiculopathy, lumbar region (principal); M25.551 Pain in right hip; M47.26 Other spondylosis with radiculopathy, lumbar region; M43.16 Spondylolisthesis, lumbar region | CPT/HCPCS: 72100 ==

== ENCOUNTER 2024-07-17 14:36 | Outpatient (CLI) | payer MEDICARE, OTHER | END 2024-07-17 14:37 | disposition home or self-care (01) | LOC: BICMAMMO 14:36 | PROVIDERS: ATTEND Family Medicine | DX: M81.0 Age-related osteoporosis without current pathological fracture (principal) | CPT/HCPCS: 77080 ==